=== PATIENT | female | born 1960 | race Two or more races ===

== ENCOUNTER 2017-07-22 01:22 | Observation (INO) | payer OTHER ==
[2017-07-22] MEDS ORDERED: Nitroglycerin 2% OINT* 1 GM PAK TOPICAL ONE (01:46)
[2017-07-22 02:09] LABS: Hematocrit 34 % (35-47); Hemoglobin 10.9 g/dl (12.0-16.0); Mean Corpuscular HGB Conc 33 g/dl (31-36); Mean Corpuscular Hemoglobin 32 pg (27-31); Mean Corpuscular Volume 98 fL (80-97); Mean Platelet Volume 7 um3 (7.4-10.4); Red Blood Count 3.42 10^6/ul (4.0-5.4); Red Cell Distribution Width 13 % (10.5-15); White Blood Count 6.8 10^3/ul (3.5-10.8)
[2017-07-22] MEDS ORDERED: Ticagrelor* 90 MG TAB PO ONE (02:20)
[2017-07-22] MEDS ORDERED: Heparin for STEMI(*) 5,000 UNITS/ML 1 ML VIAL IV ONE (02:20)
[2017-07-22] MEDS ORDERED: Aspirin TAB* 325 MG PO ONE (02:21)
[2017-07-22 02:28] LABS: Albumin 3.8 g/dL (3.2-5.2); BUN/Creatinine Ratio 13.7 (8-20); Calcium 8.6 mg/dL (8.6-10.3); EGFR African American 16.5 (>60); EGFR Non-African American 12.8 (>60); Potassium 4.6 mmol/L (3.5-5.0); Total Bilirubin 0.5 mg/dL (0.2-1.0); Total Protein 6.8 g/dL (6.4-8.9)
[2017-07-22 02:30] LABS: Troponin I 0.03 ng/mL (<0.04)
[2017-07-22] MEDS ORDERED: Albuterol 2.5 MG/3 ML NEB.SOL* (0.083%) INH PRN (02:40)
[2017-07-22] MEDS ORDERED: Melatonin (NF) 3 MG TAB PO PRN (02:40)
[2017-07-22] MEDS ORDERED: Ondansetron INJ* 2 MG/ML VIAL IV PRN (02:41)
[2017-07-22] MEDS ORDERED: Morphine INJ* 2 MG/ML 1 ML SYRINGE (TWO MG - NEW SYRINGE VERSION) IV PRN (02:41)
[2017-07-22] MEDS ORDERED: Metoprolol Tartrate TAB* 25 MG PO ONE (02:41)
[2017-07-22] MEDS ORDERED: NS 0.9% 1000 ML* 1,000 ML IV SCH (02:45)
--- NOTE | 2017-07-22 02:49 | HP ---
H&P (Free Text) History and Physical: PCP: patient is uncertain Date/Time: 07/22/2017 0240 CC: chest pain HPI: Mrs Willson is a 57YO obese Belgian speaking female HX CKD & HTN presents with onset at 1800 of mild non-radiating, non-exertional substernal chest pressure associated with SOB, but no sweating, nausea, palpitations, or light- headedness. The pain was continuous, but increased to 5/10 around 2230 prompting a call to EMS who gave 324mg aspirin which helped. At this time, she is symptom free. She reports similar symptoms in the past, but not recently. PMedHx HTN CKD HLD Ambulatory Orders Carvedilol TAB* [Coreg TAB*] 9.375 mg PO BID 07/22/17 Sodium Citrate & Citric Acid [Sodium Citrate/Citric Aci 500-334 mg/5Ml] 15 ml PO TID 07/22/17 Allergies No Known Allergies Allergy (Verified 07/22/17 01:33) PSurgHx denies SocHx: 1/4PPD cigarettes, 1-2 alcoholic drinks weekly, no recreational drugs; lives with her ; full code status FamHx: Mother: alive at 80 w/ HTN; Father: passed at 60 of CAD/TX ROS: as above, otherwise reviewed and all were negative vitals: Vital Signs Temp 36.2 C 07/22/17 01:29 Pulse 73 07/22/17 02:00 Resp 16 07/22/17 02:00 BP 183/93 07/22/17 01:29 Pulse Ox 99 07/22/17 02:00 Intake & Output 07/21/17 07/21/17 07/22/17 11:59 23:59 11:59 Weight 83.007 kg Constitutional: NAD, normally developed, obese female HEENM: atraumatic; sclera/conjunctiva: anicteric/clear; hearing: clinically intact; oropharynx: clear, mucosa moist Neck: soft tissue: non-tender; thyroid: normal Pulmonary: clear to auscultation bilaterally, good aeration, no accessory muscle use CV: RR/RR, normal S1S2, no carotid bruit, no jugular venous distention, 2+ B DP/ PT, no edema Abdominal: soft, non-distended, non-tender, no rebound/guarding/rigidity, normoactive bowel sounds, no hepatosplenomegaly or masses, no costovertebral angle tenderness Musculoskeletal: general: grossly intact, no palpable tenderness Integumental: normal appearance and texture Psychiatric orientation: AA&O to PPS affect: calm mood: cooperative eye contact: good content: reliable responses: timely insight: good to fair Testing: Lab Results 07/22/17 07/22/17 07/22/17 Range/Units 01:56 01:56 01:56 WBC 6.8 (3.5-10.8) 10^3/ul RBC 3.42 L (4.0-5.4) 10^6/ul Hgb 10.9 L (12.0-16.0) g/dl Hct 34 L (35-47) % MCV 98 H (80-97) fL MCH 32 H (27-31) pg MCHC 33 (31-36) g/dl RDW 13 (10.5-15) % Plt Count 255 (150-450) 10^3/ul MPV 7 L (7.4-10.4) um3 Neut % (Auto) 53.8 (38-83) % Lymph % (Auto) 37.0 (25-47) % [place] % (Auto) 7.7 (1-9) % Eos % (Auto) 1.4 (0-6) % Baso % (Auto) 0.1 (0-2) % Absolute Neuts (auto) 3.7 (1.5-7.7) 10^3/ul Absolute Lymphs (auto) 2.5 (1.0-4.8) 10^3/ul Absolute Monos (auto) 0.5 (0-0.8) 10^3/ul Absolute Eos (auto) 0.1 (0-0.6) 10^3/ul Absolute Basos (auto) 0 (0-0.2) 10^3/ul Absolute Nucleated RBC 0 10^3/ul Nucleated RBC % 0 INR (Anticoag Therapy) 0.86 (0.77-1.02) APTT 33.5 (26.0-36.3) seconds Sodium (133-145) mmol/L Potassium (3.5-5.0) mmol/L Chloride (101-111) mmol/L Carbon Dioxide (22-32) mmol/L Anion Gap (2-11) mmol/L BUN (6-24) mg/dL Creatinine (0.51-0.95) mg/dL Est GFR ( Amer) (>60) Est GFR (Non-Af Amer) (>60) BUN/Creatinine Ratio (8-20) Glucose (70-100) mg/dL Lactic Acid (0.5-2.0) mmol/L Calcium (8.6-10.3) mg/dL Total Bilirubin (0.2-1.0) mg/dL AST (13-39) U/L ALT (7-52) U/L Alkaline Phosphatase (34-104) U/L Troponin I (<0.04) ng/mL B-Natriuretic Peptide 192 H ( - 100) pg/mL Total Protein (6.4-8.9) g/dL Albumin (3.2-5.2) g/dL Globulin (2-4) g/dL Albumin/Globulin Ratio (1-3) 07/22/17 07/22/17 Range/Units 01:56 01:56 WBC (3.5-10.8) 10^3/ul RBC (4.0-5.4) 10^6/ul Hgb (12.0-16.0) g/dl Hct (35-47) % MCV (80-97) fL MCH (27-31) pg MCHC (31-36) g/dl RDW (10.5-15) % Plt Count (150-450) 10^3/ul MPV (7.4-10.4) um3 Neut % (Auto) (38-83) % Lymph % (Auto) (25-47) % [place] % (Auto) (1-9) % Eos % (Auto) (0-6) % Baso % (Auto) (0-2) % Absolute Neuts (auto) (1.5-7.7) 10^3/ul Absolute Lymphs (auto) (1.0-4.8) 10^3/ul Absolute Monos (auto) (0-0.8) 10^3/ul Absolute Eos (auto) (0-0.6) 10^3/ul Absolute Basos (auto) (0-0.2) 10^3/ul Absolute Nucleated RBC 10^3/ul Nucleated RBC % INR (Anticoag Therapy) (0.77-1.02) APTT (26.0-36.3) seconds Sodium 133 (133-145) mmol/L Potassium 4.6 (3.5-5.0) mmol/L Chloride 112 H (101-111) mmol/L Carbon Dioxide 17 L (22-32) mmol/L Anion Gap 4 (2-11) mmol/L BUN 50 H (6-24) mg/dL Creatinine 3.65 H (0.51-0.95) mg/dL Est GFR ( Amer) 16.5 (>60) Est GFR (Non-Af Amer) 12.8 (>60) BUN/Creatinine Ratio 13.7 (8-20) Glucose 95 (70-100) mg/dL Lactic Acid 0.3 L (0.5-2.0) mmol/L Calcium 8.6 (8.6-10.3) mg/dL Total Bilirubin 0.50 (0.2-1.0) mg/dL AST 139 H (13-39) U/L ALT 67 H (7-52) U/L Alkaline Phosphatase 96 (34-104) U/L Troponin I 0.03 (<0.04) ng/mL B-Natriuretic Peptide ( - 100) pg/mL Total Protein 6.8 (6.4-8.9) g/dL Albumin 3.8 (3.2-5.2) g/dL Globulin 3.0 (2-4) g/dL Albumin/Globulin Ratio 1.3 (1-3) ECG, personally reviewed: NSR rate 69, T-wave inversion lead III; no comparison CXR, personally reviewed: No acute process. Impression: 57F presenting with chest pain for r/o ACS DIAGNOSIS & PLAN Primary chest pain r/o ACS : aspirin 324mg given by EMS : metoprolol 12.5mg x1 in ED : continue carvedilol : telemetry : trend troponin : exercise stress test in AM : supplemental oxygen : supportive care Secondary HTN : continue carvedilol CKD : continue sodium citrate & citric acid HLD : heart healthy diet when taking PO Admission Rational: observation for r/o ACS DVTp: heparin SQ Code Status: full HCP:
--- NOTE | 2017-07-22 03:17 | ED ---
Azael Bryant Tiffany, scribfabrizio for Kal Downey on 07/22/17 at 0203 . HPI Chest Pain - HPI Summary HPI Summary: This patient is a 57 year old F BIBA to [facility] accompanied by family with a chief complaint of chest pain since 2229 this evening. A advertising material distributor delivered the HPI. The patient rates the pain 8/10 in severity. Symptoms aggravated by nothing. Symptoms alleviated by nothing. Patient reports shortness of breath. Patient denies nausea, vomiting, leg swelling, cough, and fever. The patient has a history of enlarged heart. She has an external heart monitor. - History of Current Complaint Chief Complaint: EDChestPainROMI Time Seen by Provider: 07/22/17 01:29 Hx Obtained From: Rafter Cutting Machine Operator Onset/Duration: Started Hours Ago - 2 hours, Still Present Timing: Constant Current Severity: Severe Pain Intensity: 8 Pain Scale Used: 0-10 Numeric Aggravating Factor(s): Nothing Alleviating Factor(s): Nothing Associated Signs and Symptoms: Positive: Other: - Allergy/Home Medications Allergies/Adverse Reactions: Allergies Allergy/AdvReac Type Severity Reaction Status Date / Time No Known Allergies Allergy Verified 07/22/17 01:33 Home Medications: Home Medications Carvedilol TAB* [Coreg TAB*] 9.375 mg PO BID 07/22/17 [History Confirmed ] Sodium Citrate & Citric Acid [Sodium Citrate/Citric Aci 500-334 mg/5Ml] 15 ml PO TID 07/22/17 [History Confirmed 07/22/17] PMH/Surg Hx/FS Hx/Imm Hx Previously Healthy: No Cardiovascular History: Reports: Hx Cardiomegaly History: Reports: Other Problems/Disorders - Hx of kidney diseases Infectious Disease History: No Infectious Disease History: Denies: Traveled Outside the [place] in Last 30 Days - Family History Known Family History: Positive: Cardiac Disease, Hypertension - Social History Alcohol Use: Weekly Hx Substance Use: No Substance Use Type: Reports: None Hx Tobacco Use: Yes Smoking Status (MU): Light Every Day Tobacco Smoker Review of Systems Negative: Fever Positive: Chest Pain Positive: Shortness Of Breath. Negative: Cough Negative: Vomiting, Nausea Negative: Edema All Other Systems Reviewed And Are Negative: Yes Physical Exam - Summary Physical Exam Summary: Appearance: Well appearing, no pain distress Skin: warm, dry, reflects adequate perfusion Head/face: normal Eyes: EOMI, JEFF ENT: normal Neck: supple, non-tender Respiratory: CTA, breath sounds present Cardiovascular: RRR, pulses symmetrical Chest: mild tenderness in chest Abdomen: non-tender, soft Bowel: present Musculoskeletal: normal, strength/ROM intact Neuro: normal, sensory motor intact, A&Ox3 Vital Signs On Initial Exam: Initial Vitals Temp Pulse Resp BP Pulse Ox 97.1 F 68 18 183/93 100 07/22/17 01:29 07/22/17 01:29 07/22/17 01:29 07/22/17 01:29 07/22/17 01:29 - [place] Coma Scale Coma Scale Total: 15 Diagnostics - Vital Signs Vital Signs Temp Pulse Resp BP Pulse Ox 07/22/17 01:29 97.1 F 68 18 183/93 100 - Laboratory Lab Results: Lab Results 07/22/17 07/22/17 07/22/17 Range/Units 01:56 01:56 01:56 WBC 6.8 (3.5-10.8) 10^3/ul RBC 3.42 L (4.0-5.4) 10^6/ul Hgb 10.9 L (12.0-16.0) g/dl Hct 34 L (35-47) % MCV 98 H (80-97) fL MCH 32 H (27-31) pg MCHC 33 (31-36) g/dl RDW 13 (10.5-15) % Plt Count 255 (150-450) 10^3/ul MPV 7 L (7.4-10.4) um3 Neut % (Auto) 53.8 (38-83) % Lymph % (Auto) 37.0 (25-47) % [place] % (Auto) 7.7 (1-9) % Eos % (Auto) 1.4 (0-6) % Baso % (Auto) 0.1 (0-2) % Absolute Neuts (auto) 3.7 (1.5-7.7) 10^3/ul Absolute Lymphs (auto) 2.5 (1.0-4.8) 10^3/ul Absolute Monos (auto) 0.5 (0-0.8) 10^3/ul Absolute Eos (auto) 0.1 (0-0.6) 10^3/ul Absolute Basos (auto) 0 (0-0.2) 10^3/ul Absolute Nucleated RBC 0 10^3/ul Nucleated RBC % 0 INR (Anticoag Therapy) 0.86 (0.77-1.02) APTT 33.5 (26.0-36.3) seconds Sodium (133-145) mmol/L Potassium (3.5-5.0) mmol/L Chloride (101-111) mmol/L Carbon Dioxide (22-32) mmol/L Anion Gap (2-11) mmol/L BUN (6-24) mg/dL Creatinine (0.51-0.95) mg/dL Est GFR ( Amer) (>60) Est GFR (Non-Af Amer) (>60) BUN/Creatinine Ratio (8-20) Glucose (70-100) mg/dL Lactic Acid (0.5-2.0) mmol/L Calcium (8.6-10.3) mg/dL Total Bilirubin (0.2-1.0) mg/dL AST (13-39) U/L ALT (7-52) U/L Alkaline Phosphatase (34-104) U/L Troponin I (<0.04) ng/mL B-Natriuretic Peptide 192 H ( - 100) pg/mL Total Protein (6.4-8.9) g/dL Albumin (3.2-5.2) g/dL Globulin (2-4) g/dL Albumin/Globulin Ratio (1-3) 07/22/17 07/22/17 Range/Units 01:56 01:56 WBC (3.5-10.8) 10^3/ul RBC (4.0-5.4) 10^6/ul Hgb (12.0-16.0) g/dl Hct (35-47) % MCV (80-97) fL MCH (27-31) pg MCHC (31-36) g/dl RDW (10.5-15) % Plt Count (150-450) 10^3/ul MPV (7.4-10.4) um3 Neut % (Auto) (38-83) % Lymph % (Auto) (25-47) % [place] % (Auto) (1-9) % Eos % (Auto) (0-6) % Baso % (Auto) (0-2) % Absolute Neuts (auto) (1.5-7.7) 10^3/ul Absolute Lymphs (auto) (1.0-4.8) 10^3/ul Absolute Monos (auto) (0-0.8) 10^3/ul Absolute Eos (auto) (0-0.6) 10^3/ul Absolute Basos (auto) (0-0.2) 10^3/ul Absolute Nucleated RBC 10^3/ul Nucleated RBC % INR (Anticoag Therapy) (0.77-1.02) APTT (26.0-36.3) seconds Sodium 133 (133-145) mmol/L Potassium 4.6 (3.5-5.0) mmol/L Chloride 112 H (101-111) mmol/L Carbon Dioxide 17 L (22-32) mmol/L Anion Gap 4 (2-11) mmol/L BUN 50 H (6-24) mg/dL Creatinine 3.65 H (0.51-0.95) mg/dL Est GFR ( Amer) 16.5 (>60) Est GFR (Non-Af Amer) 12.8 (>60) BUN/Creatinine Ratio 13.7 (8-20) Glucose 95 (70-100) mg/dL Lactic Acid 0.3 L (0.5-2.0) mmol/L Calcium 8.6 (8.6-10.3) mg/dL Total Bilirubin 0.50 (0.2-1.0) mg/dL AST 139 H (13-39) U/L ALT 67 H (7-52) U/L Alkaline Phosphatase 96 (34-104) U/L Troponin I 0.03 (<0.04) ng/mL B-Natriuretic Peptide ( - 100) pg/mL Total Protein 6.8 (6.4-8.9) g/dL Albumin 3.8 (3.2-5.2) g/dL Globulin 3.0 (2-4) g/dL Albumin/Globulin Ratio 1.3 (1-3) Result Diagrams: 07/22/17 01:56 07/22/17 01:56 Lab Statement: Any lab studies that have been ordered have been reviewed, and results considered in the medical decision making process. - Radiology CXR Radiology Interpretation Completed By: ED Physician - CXR is normal. - EKG 01:25 Cardiac Rate: NL EKG Rhythm: Sinus Rhythm - 69 BPM EKG Interpretation: Nonspecific T wave changes Chest Pain Course/Dx - Course Course Of Treatment: This patient is a 57 year old F BIBA to [facility] accompanied by family with a chief complaint of chest pain since 0 this evening. An EKG reveals nonspecific T wave changes. CXR is, per ED physician, normal. Bloodwork obtained. In the ED course the patient was given Aspirin, Heparin, Nitroglycerin and Brilinta. I consulted Dr. Moncada (hospitalist) on patient care and he agreed to admit the patient. Patient will be admitted. The patient is agreeable with this plan. - Chest Pain Differential Diagnosis/HQI/PQRI: Acute AR, ACS, Angina, Other: - esrd - Diagnoses Provider Diagnoses: Ruled out for myocardial infarction, Chronic renal failure, Chest pain - Provider Notifications Discussed Care Of Patient With: Jomar Moncada Time Discussed With Above Provider: 02:34 Instructed by Provider To: Other - Dr. Moncada (hospitalist) agreed to admit the patient. Discharge - Discharge Plan Condition: Fair Disposition: ADMITTED TO [facility] Referrals: Non Staff,Doctor [Primary Care Provider] - The documentation as recorded by the Azael alvarez Tiffany accurately reflects the service I personally performed and the decisions made by , Kal Downey.
[2017-07-22 05:44] LABS: Hematocrit 33 % (35-47); Hemoglobin 10.8 g/dl (12.0-16.0); Mean Corpuscular HGB Conc 33 g/dl (31-36); Mean Corpuscular Hemoglobin 32 pg (27-31); Mean Corpuscular Volume 97 fL (80-97); Mean Platelet Volume 8 um3 (7.4-10.4); Red Blood Count 3.39 10^6/ul (4.0-5.4); Red Cell Distribution Width 13 % (10.5-15); White Blood Count 5.9 10^3/ul (3.5-10.8)
[2017-07-22] MEDS ORDERED: Omeprazole CAP* 20 MG PO SCH (06:00)
[2017-07-22 06:22] LABS: BUN/Creatinine Ratio 13.2 (8-20); Calcium 8.5 mg/dL (8.6-10.3); EGFR African American 16.2 (>60); EGFR Non-African American 12.6 (>60); Potassium 4.7 mmol/L (3.5-5.0)
[2017-07-22 06:23] LABS: Troponin I 0.02 ng/mL (<0.04)
[2017-07-22 07:39] VITALS: BP 164/61
[2017-07-22 07:56] LABS: Urine Bacteria 1+ (Absent); Urine Bilirubin Negative (Negative); Urine Glucose Negative (Negative); Urine Nitrite Negative (Negative)
--- NOTE | 2017-07-22 07:58 | RAD ---
HISTORY: Chest pain COMPARISONS: April 14, 2017 VIEWS: 1: frontal portable view of the chest at 1:58 AM FINDINGS: LINES AND TUBES: None. CARDIOMEDIASTINAL SILHOUETTE: The cardiomediastinal silhouette is normal for portable technique. PLEURA: The costophrenic angles are sharp. No pleural abnormalities are noted. LUNG PARENCHYMA: The lungs are clear. ABDOMEN: The upper abdomen is clear. There is no subphrenic gas. BONES AND SOFT TISSUES: No bone or soft tissue abnormalities are noted. IMPRESSION: NO ACTIVE CARDIOPULMONARY DISEASE.
[2017-07-22] MEDS ORDERED: Carvedilol TAB* 6.25 MG PO SCH (09:00)
[2017-07-22] MEDS ORDERED: Docusate CAP* 100 MG PO SCH (09:00)
[2017-07-22] MEDS ORDERED: Sodium Citrate/Citric Acid* 15 ML UDC PO SCH (09:00)
[2017-07-22 09:11] LABS: EGFR African American 15.6 (>60); EGFR Non-African American 12.1 (>60)
[2017-07-22 09:12] LABS: Troponin I 0.02 ng/mL (<0.04)
--- NOTE | 2017-07-23 04:00 | DS ---
CC: Dr. Dowling * DISCHARGE SUMMARY: DATE OF ADMISSION: 07/22/17 DATE OF DISCHARGE: 07/22/17 PRIMARY CARE PROVIDER: Dr. Dowling. DISCHARGING PROVIDER: THOR Deluca SUPERVISING PHYSICIAN: Dr. Bridger Palma * (DICTATED BY THOR DELUCA) PRIMARY DISCHARGE DIAGNOSIS: Chest pain with nondiagnostic stress test. SECONDARY DISCHARGE DIAGNOSES: 1. Stage 4 chronic kidney disease - stable. 2. Hypertension. 3. Hyperlipidemia. DISCHARGE MEDICATIONS: 1. Aspirin 81 mg p.o. daily. 2. Atorvastatin 40 mg p.o. daily. 3. Carvedilol 3.975 mg p.o. b.i.d. 4. Dulera 2 puffs inhaled twice daily. 5. Sodium citrate 15 mL p.o. 3 times daily. Medication changes: Start aspirin HOSPITAL IMAGIN. Chest x-ray shows no acute process. 2. EKG shows sinus rhythm without acute ischemic changes. 3. Preliminary treadmill stress test is nondiagnostic, reaching only 80% of predicted heart rate. Symptoms are nonreproducible and no ST segment changes. The patient completed 5 minutes of the [place] treadmill protocol. HOSPITAL COURSE: This is a 57-year-old [place] speaking female with chronic kidney disease, hypertension, hyperlipidemia, and a significant smoking history who presented to the emergency department with complaints of chest pain. The patient reported associated shortness of breath but no cough, radiation of the pain, or diaphoresis. The patient reported that her pain had been constant for nearly two days but seemed to get worse yesterday which prompted her evaluation in the emergency department and she believed when she was symptomatic that she did have some tenderness to palpation over the associated chest wall. Initial labs in the emergency department show a relatively normal CBC. Comprehensive metabolic panel shows her baseline chronic kidney disease, otherwise unremarkable. Initial troponin negative. EKG showed no acute ischemic changes. The patient was subsequently admitted to the hospital for a period of observation with continuous telemetry monitoring and serial troponin. The patient reports that her chest pain resolved spontaneously. She underwent exercise stress test without cardiac imaging and her pain was nonreproducible with exercise or with palpation. The patient reached only 80% of predicted maximal heart rate after 5 minutes of the [place] protocol. No ST segment changes , nondiagnostic as she did not reach 85% of predicted. The patient was otherwise asymptomatic and eager to leave the hospital and agreeable to further outpatient stress testing. DISPOSITION AND FOLLOWUP PLAN: The patient is being discharged to home. Recommend starting daily low-dose aspirin therapy. She will be scheduled for an outpatient exercise nuclear stress test and will be contacted by [facility] for scheduling following prior authorization. A followup has been made on her behalf with her primary care provider for next week. The patient received instructions to return to the emergency department with recurrent chest pain. THOR DELUCA [id number]/[facility] #: [id number] KANDIS
[2017-07-23] MEDS ORDERED: Heparin VIAL(*) 5000 UNITS/ML VIAL (FIVE THOUSAND) SUBCUT SCH (06:00)
[2017-07-23] MEDS ORDERED: Aspirin EC Low Dose* 81 MG TAB.EC PO SCH (09:00)
== END 2017-07-22 13:30 | disposition home or self-care (01) ==
LOC: EDBD → ED 01:22 → MEDTELE 02:37 → MERGE 02:37
PROVIDERS: ADMIT Hospitalist; ATTEND Internal Medicine
DX: R07.9 Chest pain, unspecified (principal); I12.9 Hypertensive chronic kidney disease with stage 1 through stage 4 chronic kidney disease, or unspecified chronic kidney disease; N18.4 Chronic kidney disease, stage 4 (severe); E78.5 Hyperlipidemia, unspecified; F17.210 Nicotine dependence, cigarettes, uncomplicated; I51.7 Cardiomegaly; R06.02 Shortness of breath
CPT/HCPCS: 36415; 71010; 80048; 80053; 81003; 81015; 82565; 83605; 83880; 84484; 84520; 85025; 85027; 85610; 85730; 87077; 87086; 87186; 93005; 93017; 96374; 96375; 99284; 99406; A9270-GY; G0378

== ENCOUNTER → 2018-11-27 11:33 | Day surgery (SDC) | payer OTHER ==
--- NOTE | 2018-11-26 20:34 | HP ---
HISTORY AND PHYSICAL: DATE OF ADMISSION: 11/27/18. CHIEF COMPLAINT: End-stage renal disease. HISTORY OF PRESENT ILLNESS: The patient is a 58-year-old female with history of smoking and hypertension and high cholesterol, who has developed end-stage renal disease to the point that she will require dialysis. At the present time , she is borderline, but she is scheduled to start dialysis in 2 or 3 months. For this reason, the patient has been admitted for the creation of an arteriovenous fistula. PAST MEDICAL HISTORY: Remarkable for: 1. Hypertension. 2. High cholesterol. 3. Intermittent claudication. 4. Asthma. 5.Cardiomyopathy CURRENT MEDICATIONS: Include: 1. Ventolin 2 puffs every 8 hours as needed. 2. Carvedilol 6.25 mg one tablet p.o. daily. 3. Atorvastatin 40 mg p.o. daily. ALLERGIES: The patient has no known allergies. FAMILY HISTORY: Parents with hypertension. REVIEW OF SYSTEMS: Contributory for intermittent claudication. Denies any history of angina or myocardial infarction but has cardiomyopathy. Denies any history of stroke. Renal: The patient has end-stage renal disease. Peripheral Vascular: The patient has peripheral vascular disease, specifically intermittent claudication . PHYSICAL EXAMINATION GENERAL: The patient is alert and oriented, in no acute distress. VITAL SIGNS: Blood pressure is 172/82, respirations of 18, pulse of 72. HEAD AND NECK: Reveals no neck nodes or masses. No carotid bruits. LUNGS: Clear to auscultation bilaterally. HEART: Regular without murmurs. EXTREMITIES: Upper Extremities: The patient has excellent palpable pulses at the axillary brachial and radials bilaterally. The veins appeared to be small in the superficial area, but she does have adequate size right basilic vein that is being considered for two-stage basilic transposition. Lower Extremities: There is no edema, no varicosities. The pulses, the femoral and popliteal are palpable. The dorsalis pedis and posterior tibials are not palpable. Her most recent YING that showed the patient is within claudication range. There is no gangrene or any ischemic changes in the lower extremities. DIAGNOSTIC IMPRESSION: End-stage renal disease. PLAN: The plan is for admission to create arteriovenous fistula in an attempt to perform a two-stage right basilic vein transposition in this case starting with stage I AV fistula between the basilic and the brachial artery as the first stage and at a subsequent date, basilic vein transposition. The possibility of converting this into a [place]-Cristofer graft was also discussed with the patient and it is a possibility. The patient understands the potential complications including but not exclusive of others such as recurrence, phlebitis, occlusion, bleeding, hematoma. The patient understands, agrees, and wishes to proceed with the surgery. [id number]/[facility] #: [id number] KANDIS
[~2018-11-27 11:33] MED LIST: Bupivacaine 0.25% EPI 200,000* 30 ML SDV ONE; Carvedilol TAB* 6.25 MG PO ONE; Dexamethasone IV* 4 MG/ML 1 ML (4 MG) ONE; EPHEDrine (Pressors)* 50 MG/ML VIAL ONE; Glycopyrrolate IV* 0.2 MG/ML 1 ML VIAL ONE; Heparin 2 UNITS/ML IVPREMIX* 1,000 ML IV ONE; Heparin DIALYSIS ONLY(*) 1,000 UNITS/ML VIAL ONE; KETAMINE HCL* 50 MG/ML 10 ML VIAL ONE; Levalbuterol 0.63MG/3ML NEB* UNIT OF USE INH ONE; Levalbuterol 0.63MG/3ML NEB* UNIT OF USE INH PRN; Lidocaine 1% INJ* 10 MG/ML 30 ML SDV ONE; Lidocaine 2% PF * 5 ML VIAL ONE; Midazolam* 1 MG/ML 10 ML VIAL (10 MG) ONE; Naloxone* 0.4 MG/ML 1 ML VIAL IV PRN; Ondansetron INJ* 2 MG/ML VIAL IV PRN; Ondansetron INJ* 2 MG/ML VIAL ONE; Propofol* 10 MG/ML 20 ML BTL ONE; ceFAZolin 2 GM PREMIX in ORs 2 GM/50 ML BAG IVPB ONE; fentaNYL* 50 MCG/ML 2 ML VIAL (100 MCG VIAL) IV PRN; fentaNYL* 50 MCG/ML 2 ML VIAL (100 MCG VIAL) ONE
[2018-11-27 13:29] LABS: Hematocrit 29 % (33-41); Hemoglobin 9.5 g/dL (12.0-16.0); Mean Corpuscular HGB Conc 32 g/dL (31-36); Mean Corpuscular Hemoglobin 31 pg (27-31); Mean Corpuscular Volume 96 fL (80-97); Mean Platelet Volume 7.5 fL (7.4-10.4); Platelet Count 233 10^3/uL (150-450); Red Blood Count 3.08 10^6 /uL (3.70-4.87); Red Cell Distribution Width 15 % (10.5-15); White Blood Count 4.4 10^3/uL (3.5-10.8)
[2018-11-27 13:35] LABS: BUN/Creatinine Ratio 11.5 (8-20); Calcium 7.9 mg/dL (8.6-10.3); EGFR African American 11.5 (>60); EGFR Non-African American 9.5 (>60)
[2018-11-27 13:41] LABS: Potassium 5.4 mmol/L (3.5-5.0)
[2018-11-27 17:19] VITALS: BP 120/68
--- NOTE | 2018-11-27 23:40 | OP ---
DATE OF OPERATION: 11/27/18 [facility] DATE OF : 60 SURGEON: Juan Crane MD CENTRAL OFFICE SUPERVISOR: Delfina Ellis NP ANESTHESIA: Local plus MAC. PRE-OP DIAGNOSIS: End-stage renal disease. POST-OP DIAGNOSIS: End-stage renal disease. OPERATIVE PROCEDURE: Brachiocephalic arteriovenous fistula (stage I of basilic vein transposition). ESTIMATED BLOOD LOSS: Less than 20 cc. INDICATIONS: The patient is a 58-year-old female with end-stage renal disease that will require hemodialysis. The patient's only adequate vein was the right basilic vein and for this reason, she was brought in for a brachiobasilic vein arteriovenous fistula as stage I for the basilic vein transposition. DESCRIPTION OF PROCEDURE: The patient was taken to the procedure room. After proper identification of the patient and site of surgery and proper time out, she was placed in a supine position, she was prepped and draped in the usual sterile fashion. Under sedation, lidocaine 1% was used to infiltrate on the medial aspect of the right elbow. An up and down incision was then performed in this area. The incision was carried down through the skin and subcutaneous tissue. The basilic vein was then isolated on the medial aspect of the arm, this was encircled in vessel loops. We then proceeded to open the fascia and expose the brachial artery. Care was taken to avoid the nerves and we preserved the brachial vein as well. The brachial artery was encircled in vessel loops proximally and distally. Small branches were clipped with micro clips and after this was completed, the patient received 3000 units of heparin. We then proceeded after 5 minutes to crossclamp the brachial artery distally then proximally. The basilic vein was disconnect at the level of the elbow, double clipped it distally and divided. It was then spatulated proximally. Yasargil appliers were placed. After the measurement of the anastomosis to be at least 1.5 cm, an arteriotomy was performed with an 11 blade, this was extended with Bridges scissors. We then proceeded to perform an end- to-side anastomosis using 7-0 Prolene in a parachute technique. After this was done, the area was checked for hemostasis. We released the Yasargil clamp in the basilic vein and opened the distal end of the brachial artery and then the proximal end. Excellent flow was noted into the basilic vein. There was a side branch more distal to the basilic vein that appeared to be stealing flow, this was then clipped and this increased the flow into basilic vein. At this point, we checked the area for hemostasis and no bleeding was noted. We then proceeded to close the incisions, the subcutaneous tissue with 4-0 Vicryl sutures, and the skin with a subcuticular 5-0 Monocryl and Steri-Strips. At the end of the procedure, the patient has excellent capillary refill of the hand, excellent palpable pulses at the radial and ulnar. The patient was then taken in good condition to recovery room. [id number]/[facility] #: [id number] KANDIS
== END | disposition home or self-care (01) ==
LOC: OR 11:33
PROVIDERS: ATTEND Surgery
DX: N18.6 End stage renal disease (principal); I12.9 Hypertensive chronic kidney disease with stage 1 through stage 4 chronic kidney disease, or unspecified chronic kidney disease; E78.00 Pure hypercholesterolemia, unspecified; Z99.2 Dependence on renal dialysis; J44.9 Chronic obstructive pulmonary disease, unspecified; I42.9 Cardiomyopathy, unspecified; D64.9 Anemia, unspecified; E78.5 Hyperlipidemia, unspecified
CPT/HCPCS: 36415; 80048; 85027; A9270-GY; J0690; J1100; J1644; J2250; J2405; J2704; J3010

== ENCOUNTER → 2019-02-19 11:23 | Day surgery (SDC) | payer OTHER ==
--- NOTE | 2019-02-18 10:17 | HP ---
HISTORY AND PHYSICAL: DATE OF ADMISSION: 02/19/19 - [facility] CHIEF COMPLAINT: End-stage renal disease. HISTORY OF PRESENT ILLNESS: The patient is a 58-year-old female who has end- stage renal disease stage IV, about to start hemodialysis. She was referred earlier for placement of/creation of arteriovenous fistula in preparation for hemodialysis. It was felt that the best choice was to perform a 2-stage right basilic vein transposition. The patient underwent 10 weeks ago creation of right brachiobasilic fistula. However, the basilic vein is too deep for cannulation. She is being brought in for a right basilic vein transposition. PAST MEDICAL HISTORY: The patient's past medical history is remarkable for kidney disease, hypertension, myocardial infarction, congestive heart failure. CURRENT MEDICATIONS: Include: 1. Aspirin 81 mg p.o. daily. 2. Atorvastatin 40 mg p.o. daily. 3. Carvedilol 12.5 mg p.o. daily. 4. Sodium bicarb 650 mg p.o. t.i.d. 5. Ventolin inhaler 2 puffs as needed. ALLERGIES: The patient is allergic to MERLYN INHIBITORS. FAMILY HISTORY: Father had heart disease, and mother and father had hypertension. SOCIAL HISTORY: The patient is a smoker. She smokes about 3 cigarettes a day. Does not use alcohol or recreational drugs. REVIEW OF SYSTEMS: The patient's review of systems is remarkable for occasional palpitations. She has leg pains when she walks. However, she does not have any critical peripheral vascular disease. She has felt short of breath when she had congestive heart failure. ENT: She has history of nose bleeds. PHYSICAL EXAMINATION VITAL SIGNS: The patient's height is 64 inches, weight 170 pounds, blood pressure 130/70, pulse 64, respirations 18. HEENT AND NECK: Reveals no neck nodes or masses. LUNGS: Clear to auscultation bilaterally. HEART: Regular without murmurs. ABDOMEN: Unremarkable. EXTREMITIES: On the right side, there is a patent brachiobasilic fistula with a thrill. The patient has excellent palpable pulses at the radial bilaterally, brachials and axillary. Lower extremity unremarkable. IMPRESSION: Diagnostic impression is that of end-stage renal disease, likely to require hemodialysis within the next 3 months. The patient is being admitted for a right basilic vein transposition for hemodialysis. The patient understands the potential complications including but not exclusive of others such as occlusion, thrombosis, bleeding, infection, etc. The patient understands, agrees and wishes to proceed. [id number]/[facility] #: [id number] MTDD
[~2019-02-19 11:23] MED LIST changes: +Buffered Lidocaine 1% SYRIN* 1 ML/SYRINGE INTRADERM ONE; -Bupivacaine 0.25% EPI 200,000* 30 ML SDV ONE; +Bupivacaine 0.25% W/EPI* 10 ML SDV ONE; -Carvedilol TAB* 6.25 MG PO ONE; -Dexamethasone IV* 4 MG/ML 1 ML (4 MG) ONE; +Dexamethasone TAB* 4 MG ONE; +Dexamethasone TAB* 4 MG PO ONE; +DiMENhydriNATE IV* 50 MG/ML VIAL IV PUSH PRN; -EPHEDrine (Pressors)* 50 MG/ML VIAL ONE; +Famotidine IV* 10 MG/ML 2 ML (20 mg) IV ONE; +Famotidine IV* 10 MG/ML 2 ML (20 mg) ONE; -Glycopyrrolate IV* 0.2 MG/ML 1 ML VIAL ONE; -Heparin DIALYSIS ONLY(*) 1,000 UNITS/ML VIAL ONE; +Heparin VIAL(*) 5000 UNITS/ML VIAL (FIVE THOUSAND) ONE; -Levalbuterol 0.63MG/3ML NEB* UNIT OF USE INH ONE; -Levalbuterol 0.63MG/3ML NEB* UNIT OF USE INH PRN; -Midazolam* 1 MG/ML 10 ML VIAL (10 MG) ONE; +Midazolam* 1 MG/ML 5 ML VIAL (5 MG) ONE; +Morphine 4 MG/ML VIAL (1 ml) 4 MG/ML VIAL IV PRN; +NS 0.45% 1000 ML BAG* 1,000 ML IV SCH; +Norepinephrine VIAL* 1 MG/ML 4 ML VIAL ONE; -Ondansetron INJ* 2 MG/ML VIAL IV PRN; -Ondansetron INJ* 2 MG/ML VIAL ONE; +Ondansetron ODT TAB* 4 MG ONE; +Ondansetron ODT TAB* 4 MG PO ONE; +PROCHLORPERAZINE INJ 5 MG/ML 2 ML VIAL IV PRN; +Phenylephrine 10 MG/ML VIAL* 1 ML VIAL ONE; +Scopolamine 1.5 mg* PATCH TRANSDERM PRN; +Scopolamine PATCH Remove* 1 NOTE MISC PATCH OFF ONE; -ceFAZolin 2 GM PREMIX in ORs 2 GM/50 ML BAG IVPB ONE; +ceFAZolin 2 GM in NS PREMIX(*) 2 GM/100 ML BAG IVPB ONE; +oxyCODONE/Acetamin 5/325 MG* TAB ONE; +oxyCODONE/Acetamin 5/325 MG* TAB PO PRN
[2019-02-19 16:48] VITALS: BP 142/79
--- NOTE | 2019-02-19 20:57 | OP ---
DATE OF OPERATION: 02/19/19 [facility] DATE OF : 60 SURGEON: Juan Crane MD. ASSOCIATE APPLICATION DEVELOPER: Delfina Ellis NP. ANESTHESIA: General. PRE-OP DIAGNOSIS: End-stage renal disease. POST-OP DIAGNOSIS: End-stage renal disease. OPERATIVE PROCEDURE: Right basilic vein arteriovenous fistula transposition. ESTIMATED BLOOD LOSS: None. INDICATIONS: The patient is a 58-year-old female with end-stage renal disease, stage 4, likely to start hemodialysis within the next 3 months. For this reason , the patient was referred for creation of an AV fistula. The patient had under -one a brachiobasilic vein AV fistula; however, this was not superficial enough. For this reason, the patient is being brought in for a basilic vein transposition. DESCRIPTION OF PROCEDURE: The patient was taken to the operating room. She underwent ultrasound mapping of the basilic vein. Markings were done. Identification of the patient and site of surgery. The patient was then taken to the operating room, placed in the supine position. She received preoperative antibiotics, and under general anesthesia, she was prepped and draped in the usual sterile fashion. Appropriate time-out was performed, and after this was completed, we then proceeded to infiltrate lidocaine 1% mixed with Marcaine in the medial aspect of the right arm. An up and down incision was performed in the medial aspect of the arm. The incision was carried down through skin and subcutaneous tissue. Bleeders were controlled by electrocoagulation. Exposure of the basilic vein was performed. This was then traced both proximally and distally down to the anastomosis to the brachial artery and up the incision was extended all the way up to the axilla exposing the entire basilic vein. The medial cutaneous nerve was preserved, and we proceeded to ligate the branches with 4-0 silk sutures and hemoclips and divided them. The entire basilic vein was completely mobilized all the way up to the axilla and down to the anastomosis with the brachial artery. At this point, we proceeded to map out the position where the fistula was going to be under the skin using a curved [place] tunneler. The markings were made. We then proceeded to infiltrate lidocaine 1% and Marcaine into the to-be tunnel area; and, after this was completed, using the curved [place] tunneler, we then proceeded to tunnel from the distal end of the incision near the arterial anastomosis up to the axilla. After this was in place, the patient received 3000 units of heparin. Five minutes later, we proceeded to place the Yasargil at the distal end of the basilic vein. We proceeded to cross-clamp the vein just proximal to the anastomosis and the vein was then transected in an oblique fashion. After this was completed, we then proceeded to attach the vein to the tunneler and then the vein was brought out from the top entrance down to the distal entrance. The tunneler was then removed and the vein was then spatulated. We then proceeded to reanastomose the basilic vein to itself doing a basilic to basilic vein end-to-end anastomosis using 7-0 Prolene. After this was completed, the Yasargil was released, the cross-clamp was released, and excellent flow was noted into the fistula. The fistula was superficial. No bleeding was noted. There was a thrill and a strong Doppler signal all throughout the fistula. After this was done, we checked the incision. Bleeders were controlled by electrocoagulation and we proceeded to close the incision. First, the subcutaneous tissue with interrupted 4-0 Vicryl sutures and the skin with jessica. The patient tolerated the procedure well. A light dressing was applied to the area with Xeroform, 4x4s, and light Kerlix. At the end of the procedure, the patient had excellent capillary refill in the right hand and a very strong Doppler signal on the radial. [id number]/[facility] #: [id number] KANDIS
== END | disposition home or self-care (01) ==
LOC: OR 11:23
PROVIDERS: ATTEND Surgery
DX: I12.9 Hypertensive chronic kidney disease with stage 1 through stage 4 chronic kidney disease, or unspecified chronic kidney disease (principal); N18.4 Chronic kidney disease, stage 4 (severe); F17.210 Nicotine dependence, cigarettes, uncomplicated; I25.2 Old myocardial infarction; I50.9 Heart failure, unspecified
CPT/HCPCS: A9270-GY; C1776; J0690; J1644; J2250; J2704; J3010; J8540

== ENCOUNTER 2019-02-20 04:04 | Emergency (ER) | payer OTHER ==
[2019-02-20 05:07] VITALS: BP 128/72
[2019-02-20] MEDS ORDERED: Morphine 4 MG/ML VIAL (1 ml) 4 MG/ML VIAL IM ONE (05:22)
[2019-02-20] MEDS ORDERED: PROCHLORPERAZINE INJ 5 MG/ML 2 ML VIAL IM ONE (05:22)
--- NOTE | 2019-02-20 05:23 | ED ---
Upper Extremity Pain - HPI Summary HPI Summary: Patient is a 58 y/o F presenting to ED via EMS with complaints of bleeding from right arm and right arm pain. Patient does not speak Swedish, only Haitian, family members translated for patient. Patient had AV fistula placed yesterday by Dr. Crane. This morning, it is reported that the patient woke up with blood all over her arm and in significant pain. Patient had taken her pain medications with minimal relief. Bleeding is controlled at present. She is not on dialysis yet. On triage, pain is rated 7/10. Home medications and allergies are reviewed. - History of Current Complaint Chief Complaint: EDGeneral Stated Complaint: POST OP BLEED ARM PER EMS Time Seen by Provider: 02/20/19 05:15 Hx Obtained From: Patient Mechanism Of Injury: Other - no SALVATORE reported Onset/Duration: Started Hours Ago, Still Present - pain, Resolved - bleeding Timing: Constant, Lasting Hours Severity Currently: Severe Pain Location: Arm - right Aggravating Factor(s): Nothing Alleviating Factor(s): Nothing Associated Signs & Symptoms: Positive: Other - right arm pain and bleeding - Allergies/Home Medications Allergies/Adverse Reactions: Allergies Allergy/AdvReac Type Severity Reaction Status Date / Time No Known Allergies Allergy Verified 02/20/19 04:22 Home Medications: Home Medications Hydrocodone/Acetaminophen [Hydrocodone-Acetamin 5-325 mg] 1 tab PO Q6H PRN 02/20 [History Confirmed 02/20/19] PMH/Surg Hx/FS Hx/Imm Hx Endocrine/Hematology History: Reports: Hx Thyroid Disease - Simple Goiter-per Dr Sharp, Hx Anemia Denies: Hx Diabetes Cardiovascular History: Reports: Hx Cardiomegaly - Per H&P Dr Lange, Hx Congestive Heart Failure - Non ischemic cardiomyopathy/CHF, Per H&P Dr Sharp, Hx Hypercholesterolemia, Hx Hypertension - on medication, Hx Peripheral Vascular Disease - Intermittent claudication per H&PDr Rosa Maria, Christ Valvular Heart Disease - Mild to mod aortic insufficiency, mild mitral insufficiency-Dr Lange, Other Cardiovascular Problems/Disorders - High cholesterol Denies: Hx Angina, Hx Coronary Artery Disease, Hx Myocardial Infarction, Hx Pacemaker/ICD Respiratory History: Reports: Hx Asthma - prn albuterol, Hx Chronic Obstructive Pulmonary Disease (COPD), Other Respiratory Problems/Disorders - Current smoker GI History: Denies: Other GI Disorders History: Reports: Other Problems/Disorders - hx of UTI Musculoskeletal History: Reports: Other Musculoskeletal History - history of back pain near right hip area Sensory History: Denies: Hx Cataracts, Hx Contacts or Glasses, Hx Hearing Aid Opthamlomology History: Denies: Hx Cataracts, Hx Contacts or Glasses Neurological History: Denies: Other Neuro Impairments/Disorders Psychiatric History: Reports: Hx Anxiety - regarding surgery - Surgical History Surgery Procedure, Year, and Place: LOCAL ANESTHESIA. Right arm AV fistula Hx Anesthesia Reactions: No Infectious Disease History: No Infectious Disease History: Reports: Traveled Outside the [place] in Last 30 Days Denies: Hx Clostridium Difficile, Hx Hepatitis, Hx Human Immunodeficiency Virus (HIV), Hx of Known/Suspected MRSA, Hx Shingles, Hx Tuberculosis, History Other Infectious Disease - Family History Known Family History: Positive: Cardiac Disease, Hypertension, Diabetes - Social History Alcohol Use: None Alcohol Amount: 5 drinks a week Hx Substance Use: No Substance Use Type: Reports: None Hx Tobacco Use: Yes Smoking Status (MU): Light Every Day Tobacco Smoker Type: Cigarettes Amount Used/How Often: 2 cigarettes per day X 45 YEARS Have You Smoked in the Last Year: Yes Review of Systems Musculoskeletal: Other - positive - right arm pain Skin: Other - positive - right arm bleeding All Other Systems Reviewed And Are Negative: Yes Physical Exam - Summary Physical Exam Summary: VITAL SIGNS: Reviewed. GENERAL: Patient is a well-developed and nourished female who is lying comfortable in the stretcher. Patient is not in any acute respiratory distress. HEAD AND FACE: No signs of trauma. No ecchymosis, hematomas or skull depressions. No sinus tenderness. EYES: PERRLA, EOMI x 2, No injected conjunctiva, no nystagmus. EARS: Hearing grossly intact. Ear canals and tympanic membranes are within normal limits. MOUTH: Oropharynx within normal limits. NECK: Supple, trachea is midline, no adenopathy, no JVD, no carotid bruit, no c- spine tenderness, neck with full ROM CHEST: Symmetric, no tenderness at palpation LUNGS: Clear to auscultation bilaterally. No wheezing or crackles. CVS: Regular rate and rhythm, S1 and S2 present, no murmurs or gallops appreciated. ABDOMEN: Soft, non-tender. No signs of distention. No rebound no guarding, and no masses palpated. Bowel sounds are normal. EXTREMITIES: FROM in all major joints, no edema, no cyanosis or clubbing. NEURO: Alert and oriented x 3. No acute neurological deficits. Speech is normal and follows commands. SKIN: Dry and warm. Patient has long incision over the right upper arm medially , jessica in place, no induration, no active bleeding, patient is neurovascularly intact. Triage Information Reviewed: Yes Vital Signs On Initial Exam: Initial Vitals Pulse Pulse Ox 69 98 02/20/19 04:13 02/20/19 04:13 Vital Signs Reviewed: Yes Diagnostics - Vital Signs Vital Signs Temp Pulse Resp BP Pulse Ox 02/20/19 05:00 62 98 02/20/19 04:52 60 128/72 98 02/20/19 04:22 97.4 F 66 16 138/75 98 02/20/19 04:13 69 98 - Laboratory Lab Statement: Any lab studies that have been ordered have been reviewed, and results considered in the medical decision making process. Course/Dx - Course Course Of Treatment: Patient is a 58 y/o F presenting to ED via EMS with complaints of bleeding from right arm and right arm pain. Patient does not speak Swedish, only Haitian, family members translated for patient. Patient had AV fistula placed yesterday by Dr. Crane. This morning, it is reported that the patient woke up with blood all over her arm and in significant pain. Patient had taken her pain medications with minimal relief. Bleeding is controlled at present. She is not on dialysis yet. Patient has long incision over the right upper arm medially, jessica in place, no induration, no active bleeding, patient is neurovascularly intact. During ED course, patient was given Compazine 10 mg IM and morphine 4 mg IM. Sling was provided for the patients arm, she was discharged to home and will follow up with surgery within three days. - Diagnoses Provider Diagnoses: Visit for wound check Discharge - Sign-Out/Discharge Documenting (check all that apply): Patient Departure - discharge Patient Received Moderate/Deep Sedation with Procedure: No - Discharge Plan Condition: Stable Disposition: HOME Patient Education Materials: Acute Wound Care (ED) Referrals: Juan Crane MD [Medical Doctor] - 3 Days Betty Bueno MD [Primary Care Provider] - 3 Days Additional Instructions: RETURN TO ED FOR ANY NEW OR WORSENING SYMPTOMS. FOLLOW UP WITH YOUR PRIMARY CARE PHYSICIAN AND SURGEON WITHIN THREE DAYS. - Attestation Statements Document Initiated by Scribe: Yes Documenting Scribe: CORNELIUS GIBSON Provider For Whom Scribe is Documenting (Include Credential): FLASH GARCIA MD Scribe Attestation: ICORNELIUS, scribed for FLASH GARCIA MD on 02/20/19 at 0919. Status of Scribe Document: Ready
== END 2019-02-20 06:00 | disposition home or self-care (01) ==
LOC: ED 04:04
DX: T82.838A Hemorrhage due to vascular prosthetic devices, implants and grafts, initial encounter (principal); I11.0 Hypertensive heart disease with heart failure; I50.9 Heart failure, unspecified; I08.0 Rheumatic disorders of both mitral and aortic valves; J44.9 Chronic obstructive pulmonary disease, unspecified; Z82.49 Family history of ischemic heart disease and other diseases of the circulatory system; Z83.3 Family history of diabetes mellitus; F17.210 Nicotine dependence, cigarettes, uncomplicated
CPT/HCPCS: 96372; 99282; J0780; J2270

== ENCOUNTER 2019-10-04 07:45 | Emergency (ER) | payer OTHER ==
--- NOTE | 2019-10-04 08:12 | ED ---
Respiratory - HPI Summary HPI Summary: Pt. is a 59 y.o female who presents to the ER for ongoing cough x one month. Pt. with hx of ESRD and on dialysis. Pt. notes she had a cardiac cath in [place] 4 days ago. Pt. denies fever, sob, abd. pain, vomiting, chest pain, leg swelling. Pt. notes pain to right groin with coughing. Pt. states cough is keeping her awake at night and presents for evaluation. Sxs are moderate in severity. No current modifying factors. - History of Current Complaint Chief Complaint: EDUpperRespComplaint Stated Complaint: COUGH/PAIN IN LEG PER PT Time Seen by Provider: 10/04/19 08:02 Hx Obtained From: Patient Pain Intensity: 6 - Allergy/Home Medications Allergies/Adverse Reactions: Allergies Allergy/AdvReac Type Severity Reaction Status Date / Time No Known Allergies Allergy Verified 10/04/19 07:52 Home Medications: Home Medications Aspirin EC TAB* [Ecotrin EC Low Dose 81 MG*] 81 mg PO DAILY 03/29/19 [History Confirmed 10/04/19] Carvedilol [Coreg] 25 tab PO BID 08/30/19 [History Confirmed 10/04/19] Ferrous Sulfate TAB* 325 mg PO .3X/WEEK 08/30/19 [History Confirmed 10/04/19] Hydralazine HCl 25 mg PO TID 08/31/19 [History Confirmed 10/04/19] Atorvastatin* [Lipitor*] 40 mg PO BEDTIME 10/04/19 [History Confirmed 10/04/19] Benzonatate CAP* [Tessalon 100 MG CAP*] 100 mg PO TID #12 cap 10/04/19 [Rx] Isosorbide Mononitrate ER TAB* [Imdur ER TAB*] 30 mg PO DAILY 10/04/19 [History Confirmed 10/04/19] Lisinopril TAB* [Prinivil TAB*] 5 mg PO DAILY 10/04/19 [History Confirmed ] PMH/Surg Hx/FS Hx/Imm Hx Previously Healthy: Yes Endocrine/Hematology History: Reports: Hx Thyroid Disease - Simple Goiter-per Dr Sharp, Christ Anemia Denies: Hx Diabetes Cardiovascular History: Reports: Hx Cardiomegaly - Per H&P Dr Lange, Hx Congestive Heart Failure - Non ischemic cardiomyopathy/CHF, Per H&P Dr Sharp, Hx Hypercholesterolemia, Hx Hypertension - on medication, Hx Peripheral Vascular Disease - Intermittent claudication per H&PDr Rosa Maria, Hx Valvular Heart Disease - Mild to mod aortic insufficiency, mild mitral insufficiency-Dr Lange, Other Cardiovascular Problems/Disorders - High cholesterol Denies: Hx Angina, Hx Coronary Artery Disease, Hx Myocardial Infarction, Hx Pacemaker/ICD Respiratory History: Reports: Hx Asthma - prn albuterol, Hx Chronic Obstructive Pulmonary Disease (COPD), Other Respiratory Problems/Disorders - Current smoker GI History: Denies: Other GI Disorders History: Reports: Other Problems/Disorders - hx of UTI Musculoskeletal History: Reports: Other Musculoskeletal History - history of back pain near right hip area Sensory History: Denies: Hx Cataracts, Hx Contacts or Glasses, Hx Hearing Aid Opthamlomology History: Denies: Hx Cataracts, Hx Contacts or Glasses Neurological History: Denies: Other Neuro Impairments/Disorders Psychiatric History: Reports: Hx Anxiety - regarding surgery - Surgical History Surgery Procedure, Year, and Place: LOCAL ANESTHESIA. Right arm AV fistula Hx Anesthesia Reactions: No Infectious Disease History: No Infectious Disease History: Denies: Hx Clostridium Difficile, Hx Hepatitis, Hx Human Immunodeficiency Virus (HIV), Hx of Known/Suspected MRSA, Hx Shingles, Hx Tuberculosis, History Other Infectious Disease, Traveled Outside the [place] in Last 30 Days - Family History Known Family History: Positive: Cardiac Disease, Hypertension, Diabetes, Non- Contributory - Social History Occupation: Unemployed Lives: With Family Alcohol Use: None Alcohol Amount: 5 drinks a week Hx Substance Use: No Substance Use Type: Reports: None Hx Tobacco Use: Yes Smoking Status (MU): Light Every Day Tobacco Smoker Type: Cigarettes Amount Used/How Often: 2 cigarettes per day X 45 YEARS Have You Smoked in the Last Year: Yes Review of Systems Constitutional: Negative Negative: Fever, Chills Cardiovascular: Negative Negative: Palpitations, Chest Pain Positive: Cough. Negative: Shortness Of Breath Gastrointestinal: Negative Musculoskeletal: Negative Skin: Negative Neurological/Mental Status: Negative All Other Systems Reviewed And Are Negative: Yes Physical Exam Vital Signs On Initial Exam: Initial Vitals Temp Pulse Resp BP Pulse Ox 97.7 F 70 16 139/60 98 10/04/19 07:47 10/04/19 07:47 10/04/19 07:47 10/04/19 07:47 10/04/19 07:47 Procedures - Sedation Patient Received Moderate/Deep Sedation with Procedure: No Diagnostics - Vital Signs Vital Signs Temp Pulse Resp BP Pulse Ox 10/04/19 08:10 69 22 99 10/04/19 07:47 97.7 F 70 16 139/60 98 - Laboratory Result Diagrams: 10/04/19 08:47 10/04/19 08:47 Lab Statement: Any lab studies that have been ordered have been reviewed, and results considered in the medical decision making process. Disposition - Course Course Of Treatment: Pt. with c/o cough x 1 month. Afebrile with stable VS. Retail Pharmacy Technician initially used and then Pt.'s family came to ED and were able to translate and give more hx. Family notes that pt. has a "leaky" valve and needs a valve replacement. Family notes they were concerned that increased cough could be secondary to fluid in lungs. Labs at pt.'s baseline. Elevated cr, normal K. Pt. due for dialysis tomorrow. BNP minimally elevated at 115. CXR negative for acute findings per radiology. On re-exam pt. sitting comfortably without complaints. REsults discussed with pt. and family . Tessalon pearls rx for cough. Case reviewed with Dr. Odonnell who agrees with dc. Pt. to call her field cashier today for close .fu and return to er if sxs change or worsen. Pt. and family understand and agree with plan. Assessment/Plan: ECG done at 0817 shows a sinus rhythm of 85bpm, prolonged QT, left axis deviation, silimar to prior tracing. - Differential Dx - Cardiopulmonary Differential Diagnoses - Cardiopulmonary: CAD, CHF, Influenza, Lower Resp Infection - Diagnoses Provider Diagnoses: Cough Discharge ED - Sign-Out/Discharge Documenting (check all that apply): Patient Departure - Discharge Plan Condition: Improved Disposition: HOME Prescriptions: Benzonatate CAP* [Tessalon 100 MG CAP*] 100 mg PO TID #12 cap Patient Education Materials: Chronic Cough (ED) Referrals: Betty Bueno MD [Primary Care Provider] - Additional Instructions: Please call your PCP and heart doctor today for close follow up appointment Return to ER for chest pain, shortness of breath, leg swelling, or if concerned - Billing Disposition and Condition Condition: IMPROVED Disposition: Home
[2019-10-04 09:02] LABS: ABS Basophils 0.1 10^3/ul (0-0.2); ABS Eosinophils 0.2 10^3/ul (0-0.6); ABS Lymphocytes 1.2 10^3/ul (1.0-4.8); ABS Monocytes 0.5 10^3/ul (0-0.8); ABS Neutrophils 2.3 10^3/ul (1.5-7.7); Eosinophil % 4.2 %; Hematocrit 36 % (35-47); Hemoglobin 11.8 g/dL (12.0-16.0); Lymphocyte % 28.8 %; Mean Corpuscular HGB Conc 33 g/dL (31-36); Mean Corpuscular Hemoglobin 33 pg (27-31); Mean Corpuscular Volume 100 fL (80-97); Mean Platelet Volume 6.9 fL (7.4-10.4); Platelet Count 174 10^3/uL (150-450); Red Blood Count 3.58 10^6 /uL (3.70-4.87); Red Cell Distribution Width 15 % (10-15); White Blood Count 4.3 10^3/uL (3.5-10.8)
--- OUTSIDE RECORDS SUMMARY | 2019-10-04 09:17 | XMS REPORT | Continuity of Care Document ---
:1960 External Reference #:[id number] Author Name Ilda Cyr NP (transmitted by agent of provider Madeline Agudelo) [facility] [address] [facility] [place] [address] Care Team Providers Name Role Phone [facility] - Gynecology Care Team Information Surveyor Hydrographic [phone] Josiah Florentino MD - Gastroenterology Care Team Information Surveyor Hydrographic Lelo Sharp MD [facility] - Care Team Information Surveyor Hydrographic Cardiovascular Disease Shaq Miller MD - Dermatology Care Team Information Surveyor Hydrograph[employer] [phone] Janell Clemens MD - Nephrology Care Team Information Surveyor Hydrographic Betty Bueno M.D. - Family Medicine Care Team Information Surveyor Hydrographic Problems Active Problems Provider Date Congestive heart failure Glen Abbasi NP Onset: 01/10/2016 Essential hypertension Glen Abbasi NP Onset: 01/10/2016 Tobacco user Glen Abbasi NP Onset: 01/10/2016 Mixed hyperlipidemia Soren Dowling M.D. Onset: 02/28/2017 Chronic kidney disease stage 4 Soren Dowling M.D. Onset: 02/28/2017 Simple goiter Soren Dowling M.D. Onset: 04/04/2017 Cardiomyopathy, unspecified Soren Dowling M.D. Onset: 04/04/2017 Chronic obstructive lung disease Soren Dowling M.D. Onset: 10/13/2017 Anemia Soren Dowling M.D. Onset: 01/15/2018 Peripheral vascular disease Soren Dowling M.D. Onset: 06/12/2018 Mantoux: positive Josiah Florentino MD Onset: 03/26/2017 Note: saw Infectious disease - on rifampin March 2019 Social History Type Date Description Comments Sex Unknown Cigarette Use Quit - Age 59 ETOH Use Denies alcohol use ETOH Use quit 04/30/16 Recreational Drug Use Denies Drug Use Tobacco Use Start: Unknown Patient is a current 2 cig per day smoker, smokes every day Smoking Status Reviewed: 09/13/19 Patient is a current 2 cig per day smoker, smokes every day Exercise Type/Frequency Walks 3 times a week Allergies, Adverse Reactions, Alerts Active Allergies Reaction Severity Comments Date NKDA 07/30/2019 Inactive Allergies NKDA 01/09/2016 Karan Inhibitors Cough 01/09/2016 Medications Active Medications SIG Qnty Indications Ordering Date Provider Carvedilol 1 tab by mouth 60tabs I42.9 [facility], 09/13/2019 25mg twice a day P[employer]ER SHE[employer]ER Tablets Calcitriol 1 by mouth every 30caps N18.5 Mohammad A. 06/30/2019 0.25mcg other day, friday, MD Smiley Capsules friday and friday Calcium Acetate 1 capsule by mouth 180caps N18.5 Mohammad A. 06/30/2019 (Phos Binder) three times daily MD Smiley 667mg after meals Capsules Kionex take 60 ml/[facility]2019 15GM/60ML once as needed for MD Smiley Suspension hyperkalemia Ensure Original 1 can three times 90units R63.0 Ashley 03/30/2019 Nutrition Shake daily Denice Conte Liquid Rifampin 1 by mouth twice a 60caps Dillon Wayne 03/11/2019 300mg day Denice Bragg Capsules Ventolin HFA 2 puffs by mouth up 8gm Ilda Cyr, 04/27/2018 to four times a day PAP[employer] SHE[employer]ER 108(90Base) mcg/Act as needed Aerosol Isosorbide 1 by mouth every Unknown Mononitrate ER day 30mg Tablets ER 24HR Hydralazine HCL 1 by mouth three Unknown times a day 25mg Tablets Lisinopril 1 by mouth every Unknown 5mg day Tablets Aspirin 81 1 by mouth every Unknown 81mg day Tablets DR Rios 1 by mouth every 30tabs Ilda Cyr, Calcium day bed time PAPER SHEETER 40mg (please deliver) Tablets History Medications Carvedilol 1 tab by mouth twice I42.9 Unknown 09/12/2019 - 25mg a day 09/12/2019 Tablets Lidocaine-Prilocai Apply To The Fistula 30gm Lyndsay Umaña MD 08/27/2019 - ne Before Diaysis 09/12/2019 2.5-2.5% Cream Lidocaine-Prilocai Apply To Thefistula 30gm Lyndsay Umaña MD 08/27/2019 - ne Before Each Dialysis 09/12/2019 2.5-2.5% Cream Carvedilol Take 2 315tabs I42.9 Qutaybeh S. 05/28/2019 - 12.5mg Denice Sharp 09/13/2019 Tablets Ferrousul 1 tab by mouth 3 45tabs N18.5 Mohammad A. 05/26/2019 - times a week MD Smiley 09/12/2019 325(65Fe) mg Tablets Veltassa 1 packet by mouth 30units N18.5 Janell 04/28/2019 - 8.4gm every other day MD Jayleen 05/26/2019 Packet Colyte With Flavor Take according to 4000ml Josiah Doyle. 03/29/2019 - Packs the instructions you MD Chadd 04/15/2019 240gm received the day Solution Rec before and morning of your procedure Immunizations CPT Code Status Date Vaccine Reaction Lot # [id number] Given 07/30/2019 Influenza Virus Vaccine, [id number] Quadrivalent, Split, Preservative Free [id number] Given 10/13/2017 Pneumonia Vaccine no reaction [id number] Vital Signs Date Vital Result Comment 09/13/2019 2:50pm Height 64 inches 5'4" Weight 172.25 lb with shoes Heart Rate 66 /min Left Radia BP Systolic Sitting 138 mmHg Ule BP Diastolic Sitting 66 mmHg Ule BP Systolic Standing 132 mmHg Ule BP Diastolic Standing 62 mmHg Ule BMI (Body Mass Index) 29.6 kg/m2 Ejection Fraction Echo 30-3% 08/02/2019 10:48am Height 64 inches 5'4" Weight 171.00 lb Heart Rate 69 /min BP Systolic Sitting 136 mmHg L arm BP Diastolic Sitting 61 mmHg L arm O2 % BldC Oximetry 100 % BMI (Body Mass Index) 29.3 kg/m2 Results Test Acquired Date Facility Test Result H/L Range Note CBC Auto 08/31/2019 [facility] White Blood 4.9 10^3/uL Normal 3.5-10.[address] [place] [address] [phone] Red Blood Count 3.48 10^6/uL Low 3.70-4.87 Hemoglobin 11.4 g/dL Low 12.0-16.0 Hematocrit 35 % Normal 35-47 Mean Corpuscular Volume 100 fL High 80-97 Mean Corpuscular Hemoglobin 33 pg High 27-31 Mean Corpuscular HGB Conc 33 g/dL Normal 31-36 Red Cell Distribution Width 17 % High 10-15 Platelet Count 218 10^3/uL Normal 150-450 Mean Platelet Volume 6.4 fL Low 7.4-10.4 Abs Neutrophils 2.9 10^3/uL Normal 1.5-7.7 Abs Lymphocytes 1.3 10^3/uL Normal 1.0-4.8 Abs Monocytes 0.6 10^3/uL Normal 0-0.8 Abs Eosinophils 0.1 10^3/uL Normal 0-0.6 Abs Basophils 0.0 10^3/uL Normal 0-0.2 Abs Nucleated RBC 0.0 10^3/uL Granulocyte % 59.4 % Lymphocyte % 26.9 % Monocyte % 12.0 % Eosinophil % 1.0 % Basophil % 0.7 % Nucleated Red Blood Cells % 0.2 Inr/Protime 08/31/2019 [facility] Inr 0.95 Normal 0.82-1.[address] [place] [address] [phone] Laboratory test 08/31/2019 [facility] Partial 40.8 High 26.0- 38.[address] [place] [address] Time PTT [phone] Basic Metabolic 08/31/2019 [facility] Sodium 136 mmol/L Normal 135-[address] [place], [place] [id number] [phone] Potassium 3.9 mmol/L Normal 3.5-5.0 Chloride 96 mmol/L Low 101-111 Co2 Carbon Dioxide 31 mmol/L Normal 22-32 Anion Gap 9 mmol/L Normal 2-11 Glucose 85 mg/dL Normal 70-100 Blood Urea Nitrogen 27 mg/dL High 6-24 Creatinine 3.00 mg/dL High 0.51-0.95 BUN/Creatinine Ratio 9.0 Normal 8-20 Calcium 9.2 mg/dL Normal 8.6-10.3 Egfr Non- 16.0 >60 Egfr 19.3 >60 2 Liver Function 07/30/2019 [facility] Total Protein 5.6 g/dL Low 6.4-8.[address] [place] [address] [phone] Albumin 3.5 g/dL Normal 3.2-5.2 Globulin 2.1 g/dL Normal 2-4 Albumin/Globulin Ratio 1.7 Normal 1-3 Total Bilirubin 0.30 mg/dL Normal 0.2-1.0 Direct Bilirubin 0.10 mg/dL Normal 0.03-0.18 Indirect Bilirubin 0.2 mg/dL Low 0.3-1.0 Alkaline Phosphatase 89 U/L Normal 34-104 Alt 23 U/L Normal 7-52 Ast 18 U/L Normal 13-39 Laboratory test 07/30/2019 [facility] Syphillis Igg Negative Negative finding DRIVE W/[place] [address] [phone] Urine Culture And 07/09/2019 [facility] Urine Culture SEE RESULT [address] [place] [address] [phone] Urinalysis Profile 07/09/2019 [facility] Urine Color Yellow [address] [place] [address] [phone] Urine Appearance Cloudy Urine Specific [place] 1.008 Low 1.010-1.030 Urine pH 7.0 Normal 5-9 Urine Urobilinogen Negative Negative Urine Ketones Negative Negative Urine Protein 1+(30 mg/dL) Abnormal Negative Urine Leukocytes 3+ Abnormal Negative Urine Blood 1+ Abnormal Negative Urine Nitrite Negative Negative Urine Bilirubin Negative Negative Urine Glucose Negative Negative Urine White Blood Cell 2+(11-20/hpf) Abnormal Absent Urine Red Blood Cell Trace(0-2/hpf) Absent Urine Bacteria 1+ Abnormal Absent Urine Squamous Epithelial Cell Present Abnormal Absent Neph Routine 07/09/2019 [facility] Total Protein Random 58 mg/ dL [address] [facility] [place] [address] [phone] Creatinine Random Urine 63.06 mg/dL Quantiferon-TB 07/09/2019 [facility] QuantiferonTb Positive Abnormal Negative 4 [address] Plus [address] [place] [address] Result [phone] TB1 Ag minus Nil Result 2.23 IU/mL TB2 Ag minus Nil Result 1.87 IU/mL Mitogen minus Nil Result 13.83 IU/mL Nil Result 0.05 IU/mL Laboratory test 07/09/2019 [facility] Hemoglobin A1c 5.6 % Normal 4.0-5.[address] [facility] (Glyco HGB) [place] [address] [phone] Hepatitis B Surface Ag Nonreactive Nonreactive Hepatitis B Priya AB Titer Not Immune Abnormal Immune Hepatitis B Core AB Igm Nonreactive Nonreactive Pthi 07/09/2019 [facility] PTH Intact 948.9 pg/mL High 12-88 [address] [place] [address] [phone] Calcium (PTH Intact) 7.8 mg/dL Low 8.6-10.3 Laboratory test 07/09/2019 [facility] Ferritin 8.4 ng/mL Low 11-307 finding [address] [place], [place] [address] [phone] Iron & Iron 07/09/2019 [facility] Iron 87 g/dL Normal 50- 212 Binding Capacity [address] [place] [address] [phone] Unsaturated Iron Binding < 278 g/dL Total Iron Binding Capacity 293 g/dL Normal 250-450 Transferrin 209 mg/dL Normal 203-362 % Iron Saturation 30 % Normal 15-55 Laboratory test 07/09/2019 [facility] Phosphorus 3.8 mg/dL Normal 2.5-5.0 finding [address] [place] [address] [phone] Albumin 3.6 g/dL Normal 3.2-5.2 Basic Metabolic 07/09/2019 [facility] Sodium 141 mmol/L Normal 135-145 Panel [address] [place] [address] [phone] Potassium 5.4 mmol/L High 3.5-5.0 Chloride 113 mmol/L High 101-111 Co2 Carbon Dioxide 21 mmol/L Low 22-32 Anion Gap 7 mmol/L Normal 2-11 Glucose 89 mg/dL Normal 70-100 Blood Urea Nitrogen 64 mg/dL High 6-24 Creatinine 4.77 mg/dL High 0.51-0.95 BUN/Creatinine Ratio 13.4 Normal 8-20 Calcium 8.0 mg/dL Low 8.6-10.3 Egfr Non- 9.4 >60 Egfr 11.3 >60 6 CBC Auto 07/09/2019 [facility] White Blood 3.4 10^3/uL Low 3.5 -10.[address] [place] [address] [phone] Red Blood Count 2.64 10^6/uL Low 3.70-4.87 Hemoglobin 8.7 g/dL Low 12.0-16.0 Hematocrit 26 % Low 35-47 Mean Corpuscular Volume 98 fL High 80-97 Mean Corpuscular Hemoglobin 33 pg High 27-31 Mean Corpuscular HGB Conc 33 g/dL Normal 31-36 Red Cell Distribution Width 15 % Normal 10-15 Platelet Count 153 10^3/uL Normal 150-450 Mean Platelet Volume 7.8 fL Normal 7.4-10.4 Abs Neutrophils 2.0 10^3/uL Normal 1.5-7.7 Abs Lymphocytes 1.0 10^3/uL Normal 1.0-4.8 Abs Monocytes 0.4 10^3/uL Normal 0-0.8 Abs Eosinophils 0.0 10^3/uL Normal 0-0.6 Abs Basophils 0.0 10^3/uL Normal 0-0.2 Abs Nucleated RBC 0.0 10^3/uL Granulocyte % 57.2 % Lymphocyte % 28.7 % Monocyte % 12.5 % Eosinophil % 0.7 % Basophil % 0.9 % Nucleated Red Blood Cells % 0.1 Pthi 06/30/2019 [facility] PTH Intact 1277.5 pg/mL High 12-[address] [place] [address] [phone] Calcium (PTH Intact) 7.3 mg/dL Low 8.6-10.3 Laboratory test 06/30/2019 [facility] Phosphorus 4.9 mg/dL Normal 2.5-5.[address] [place] [address] [phone] Albumin 3.7 g/dL Normal 3.2-5.2 Basic Metabolic 06/30/2019 [facility] Sodium 142 mmol/L Normal 135-[address] [place] [address] [phone] Potassium 5.4 mmol/L High 3.5-5.0 Chloride 116 mmol/L High 101-111 Co2 Carbon Dioxide 19 mmol/L Low 22-32 Anion Gap 7 mmol/L Normal 2-11 Glucose 108 mg/dL High 70-100 Blood Urea Nitrogen 67 mg/dL High 6-24 Creatinine 4.72 mg/dL High 0.51-0.95 BUN/Creatinine Ratio 14.2 Normal 8-20 Calcium 7.2 mg/dL Low 8.6-10.3 Egfr Non- 9.5 >60 Egfr 11.5 >60 7 CBC Auto 06/30/2019 [facility] White Blood 3.3 10^3/uL Low 3.5 -10.[address] [place] [address] [phone] Red Blood Count 2.73 10^6/uL Low 3.70-4.87 Hemoglobin 8.8 g/dL Low 12.0-16.0 Hematocrit 27 % Low 35-47 Mean Corpuscular Volume 98 fL High 80-97 Mean Corpuscular Hemoglobin 32 pg High 27-31 Mean Corpuscular HGB Conc 33 g/dL Normal 31-36 Red Cell Distribution Width 15 % Normal 10-15 Platelet Count 155 10^3/uL Normal 150-450 Mean Platelet Volume 7.6 fL Normal 7.4-10.4 Abs Neutrophils 2.0 10^3/uL Normal 1.5-7.7 Abs Lymphocytes 0.8 10^3/uL Low 1.0-4.8 Abs Monocytes 0.4 10^3/uL Normal 0-0.8 Abs Eosinophils 0.0 10^3/uL Normal 0-0.6 Abs Basophils 0.0 10^3/uL Normal 0-0.2 Abs Nucleated RBC 0.0 10^3/uL Granulocyte % 59.9 % Lymphocyte % 25.5 % Monocyte % 13.4 % Eosinophil % 0.6 % Basophil % 0.6 % Nucleated Red Blood Cells % 0.1 Liver Function 06/30/2019 [facility] Total Protein 6.0 g/dL Low 6.4-8.[address] [place] [address] [phone] Albumin 3.6 g/dL Normal 3.2-5.2 Globulin 2.4 g/dL Normal 2-4 Albumin/Globulin Ratio 1.5 Normal 1-3 Total Bilirubin 0.40 mg/dL Normal 0.2-1.0 Direct Bilirubin 0.10 mg/dL Normal 0.03-0.18 Indirect Bilirubin 0.3 mg/dL Normal 0.3-1.0 Alkaline Phosphatase 98 U/L Normal 34-104 Alt 16 U/L Normal 7-52 Ast 17 U/L Normal 13-39 Urine Culture And 06/30/2019 [facility] Urine Culture SEE RESULT [address] [place] [address] [phone] Urinalysis Profile 06/30/2019 [facility] Urine Color Yellow [address] [place] [address] [phone] Urine Appearance Cloudy Urine Specific [place] 1.008 Low 1.010-1.030 Urine pH 6.0 Normal 5-9 Urine Urobilinogen Negative Negative Urine Ketones Negative Negative Urine Protein 1+(30 mg/dL) Abnormal Negative Urine Leukocytes 3+ Abnormal Negative Urine Blood 1+ Abnormal Negative Urine Nitrite Negative Negative Urine Bilirubin Negative Negative Urine Glucose Negative Negative Urine White Blood Cell 3+(>20/hpf) Abnormal Absent Urine Red Blood Cell 2+(6-10/hpf) Abnormal Absent Urine Bacteria 2+ Abnormal Absent Neph Routine 06/30/2019 [facility] Total Protein Random 57 mg/ dL [address] [place] [address] [phone] Creatinine Random Urine 62.75 mg/dL Hemoglobin/Hematocrit 06/08/2019 [facility] Hemoglobin 8.7 Low 12.0-16.[address] g/[place] [address] [phone] Hematocrit 26 % Low 35-47 Urine Culture And 05/11/2019 [facility] Urine Culture SEE RESULT [address] [place] [address] [phone] Laboratory test 05/11/2019 [facility] Transferrin <pending> finding [address] [place] [address] [phone] Urinalysis Profile 05/11/2019 [facility] Urine Color Yellow [address] [place], [place] [id number] [phone] Urine Appearance Cloudy Urine Specific [place] 1.009 Low 1.010-1.030 Urine pH 6.0 Normal 5-9 Urine Urobilinogen Negative Negative Urine Ketones Negative Negative Urine Protein 1+(30 mg/dL) Abnormal Negative Urine Leukocytes 3+ Abnormal Negative Urine Blood 1+ Abnormal Negative Urine Nitrite Negative Negative Urine Bilirubin Negative Negative Urine Glucose Negative Negative Urine White Blood Cell 3+(>20/hpf) Abnormal Absent Urine Red Blood Cell Absent Absent Urine Bacteria 3+ Abnormal Absent Urine Squamous Epithelial Cell Present Abnormal Absent Neph Routine 05/11/2019 [facility] Total Protein Random 70 mg/ dL [address] [place], [place] [address] [phone] Creatinine Random Urine 68.90 mg/dL Total Protein 05/11/2019 [facility] Urine Total 990 High 0- [address] [facility] Protein/24HR mg/24Hr [place], [place] [address] [phone] Creatinine 05/11/2019 [facility] Urine 895.68 Normal 600-[address] [facility] Creatinine/24 mg/24[place]r [place] [address] Hour [phone] Urine Collection Time 24 hr Urine Total Volume 1800 mL Iron & Iron Binding 05/11/2019 [facility] Iron 47 g/dL Low 50-212 Capacity [address] [place] [address] [phone] Unsaturated Iron Binding < 265 g/dL Total Iron Binding Capacity 280 g/dL Normal 250-450 Transferrin 200 mg/dL Low 203-362 % Iron Saturation 17 % Normal 15-55 Lipid Profile 05/11/2019 [facility] Triglycerides 67 mg/dL 10 (Trig/Chol/HDL) [address] [place] [address] [phone] Cholesterol 161 mg/dL 11 HDL Cholesterol 70.1 mg/dL 12 LDL Cholesterol 78 mg/dL 13 Lipid Panel - 05/11/2019 [facility] Creatine 94 U/L Normal 10- [address] [facility] Kinase(CK) [place] [address] [phone] Comp Metabolic 05/11/2019 [facility] Sodium 140 Normal 135- [address] mmol/[place] [address] [phone] Potassium 5.0 mmol/L Normal 3.5-5.0 Chloride 115 mmol/L High 101-111 Co2 Carbon Dioxide 18 mmol/L Low 22-32 Anion Gap 7 mmol/L Normal 2-11 Glucose 126 mg/dL High 70-100 Blood Urea Nitrogen 70 mg/dL High 6-24 Creatinine 4.70 mg/dL High 0.51-0.95 BUN/Creatinine Ratio 14.9 Normal 8-20 Calcium 7.4 mg/dL Low 8.6-10.3 Total Protein 6.2 g/dL Low 6.4-8.9 Albumin 3.8 g/dL Normal 3.2-5.2 Globulin 2.4 g/dL Normal 2-4 Albumin/Globulin Ratio 1.6 Normal 1-3 Total Bilirubin 0.30 mg/dL Normal 0.2-1.0 Alkaline Phosphatase 98 U/L Normal 34-104 Alt 13 U/L Normal 7-52 Ast 13 U/L Normal 13-39 Egfr Non- 9.5 >60 Egfr 11.5 >60 14 CBC Auto 05/11/2019 [facility] White Blood 3.3 10^3/uL Low 3.5 -10.[address] [place] [address] [phone] Red Blood Count 2.82 10^6/uL Low 3.70-4.87 Hemoglobin 8.8 g/dL Low 12.0-16.0 Hematocrit 27 % Low 35-47 Mean Corpuscular Volume 96 fL Normal 80-97 Mean Corpuscular Hemoglobin 31 pg Normal 27-31 Mean Corpuscular HGB Conc 32 g/dL Normal 31-36 Red Cell Distribution Width 15 % Normal 10-15 Platelet Count 160 10^3/uL Normal 150-450 Mean Platelet Volume 7.3 fL Low 7.4-10.4 Abs Neutrophils 2.0 10^3/uL Normal 1.5-7.7 Abs Lymphocytes 1.0 10^3/uL Normal 1.0-4.8 Abs Monocytes 0.3 10^3/uL Normal 0-0.8 Abs Eosinophils 0.1 10^3/uL Normal 0-0.6 Abs Basophils 0.0 10^3/uL Normal 0-0.2 Abs Nucleated RBC 0.0 10^3/uL Granulocyte % 59.0 % Lymphocyte % 29.1 % Monocyte % 9.3 % Eosinophil % 1.5 % Basophil % 1.1 % Nucleated Red Blood Cells % 0.0 Laboratory test 04/13/2019 [facility] Clotest SEE RESULT BELOW [address] [place] [address] [phone] 1 Standard intensity warfarin therapeutic range: 2.0-3.0 High intensity warfarin therapeutic range: 2.5-3.5 2 Because ethnic data is not always readily available, this report includes an eGFR for both -Americans and non- Americans. The National Kidney Disease Education Program (NKDEP) does not endorse the use of the MDRD equation for patients that are not between the ages of 18 and 70, are , have extremes of body size, muscle mass, or nutritional status, or are non- or non-. According to the National Kidney Foundation, irrespective of diagnosis, the stage of the disease is based on the level of kidney function: Stage Description GFR(mL/min/1.73 m(2)) 1 Kidney damage with normal or decreased GFR 90 2 Kidney damage with mild decrease in GFR 60-89 3 Moderate decrease in GFR 30-59 4 Severe decrease in GFR 15-29 5 Kidney failure <15 (or dialysis) 3 SEE RESULT BELOW Name: COLLEEN MARQUEZ : [address]: Radu Reis MD Acct: [id number] Unit: [id number] AGE: 59 Location: LAB Re07/09/19 SEX: F Status: REG REF SPEC: [id number] SUNSHINE: 07/09/19-[address] [facility] [address]: Radu Reis MD REQ: [id number] RECD: 07/09/19-8726 STATUS: COMP [facility] DR: Betty Bueno MD _ SOURCE: URINE [facility]: ORDERED: Urine Culture Procedure Result Reported Site Urine Culture Final 07/13/19- 1155 ML Organism 1 ESCHERICHIA COLI [place] Count >100,000 (Many) CFU/ML 1. ESCHERICHIA COLI M.I.C. RX --------- ------ Ampicillin >=32 R Cefazolin <=4 S Cefepime <=1 S Ceftriaxone <=1 S Ciprofloxacin <=0.25 S Gentamicin <=1 S Levofloxacin <=0.12 S Meropenem <=0.25 S Nitrofurantoin <=16 S Tetracycline 2 S Pipercillin/Tazobactam <=4 S Trimethoprim/Sulfamethoxazole 80 R Amoxicillin/Clavulanic Acid 8 S Aztreonam <=1 S Contact the Microbiology Department for any additional antibiotic reporting. * ML - Main Lab . END OF REPORT DEPARTMENT OF PATHOLOGY, [address] [place] [address] Elier Casanova M.D. Director [facility] # [id number] 4 M. tuberculosis infection likely 5 Therapeutic target for the treatment of diabetes mellitus patients is <7% HBA1C, and in selective patients <6.0%. Please refer to [place] [employer] diabetic care guidelines for further information. 6 Because ethnic data is not always readily available, this report includes an eGFR for both -Americans and non- Americans. The National Kidney Disease Education Program (NKDEP) does not endorse the use of the MDRD equation for patients that are not between the ages of 18 and 70, are , have extremes of body size, muscle mass, or nutritional status, or are non- or non-. According to the National Kidney Foundation, irrespective of diagnosis, the stage of the disease is based on the level of kidney function: Stage Description GFR(mL/min/1.73 m(2)) 1 Kidney damage with normal or decreased GFR 90 2 Kidney damage with mild decrease in GFR 60-89 3 Moderate decrease in GFR 30-59 4 Severe decrease in GFR 15-29 5 Kidney failure <15 (or dialysis) 7 Because ethnic data is not always readily available, this report includes an eGFR for both -Americans and non- Americans. The National Kidney Disease Education Program (NKDEP) does not endorse the use of the MDRD equation for patients that are not between the ages of 18 and 70, are , have extremes of body size, muscle mass, or nutritional status, or are non- or non-. According to the National Kidney Foundation, irrespective of diagnosis, the stage of the disease is based on the level of kidney function: Stage Description GFR(mL/min/1.73 m(2)) 1 Kidney damage with normal or decreased GFR 90 2 Kidney damage with mild decrease in GFR 60-89 3 Moderate decrease in GFR 30-59 4 Severe decrease in GFR 15-29 5 Kidney failure <15 (or dialysis) 8 SEE RESULT BELOW Name: COLLEEN MARQUEZ : [address]: Radu Reis MD Acct: [id number] Unit: [id number] AGE: 59 Location: LAB Re06/30/19 SEX: F Status: REG REF SPEC: [id number] SUNSHINE: 06/30/[address]: Radu Reis MD REQ: [id number] RECD: 06/30/19 STATUS: COMP [facility] DR: Betty Bueno MD _ SOURCE: URINE SPDESC: ORDERED: Urine Culture Procedure Result Reported Site Urine Culture Final 07/03/19- 08 ML Organism 1 ESCHERICHIA COLI [place] Count >100,000 (Many) CFU/ML 1. ESCHERICHIA COLI M.I.C. RX --------- ------ Ampicillin >=32 R Cefazolin <=4 S Cefepime <=1 S Ceftriaxone <=1 S Ciprofloxacin <=0.25 S Gentamicin <=1 S Levofloxacin <=0.12 S Meropenem <=0.25 S Nitrofurantoin 32 S Tetracycline 2 S Pipercillin/Tazobactam <=4 S Trimethoprim/Sulfamethoxazole 80 R Amoxicillin/Clavulanic Acid 8 S Aztreonam <=1 S Contact the Microbiology Department for any additional antibiotic reporting. * ML - Main Lab . END OF REPORT DEPARTMENT OF PATHOLOGY, [address] [place] [address] Elier Casanova M.D. Director [facility] # [id number] 9 SEE RESULT BELOW Name: COLLEEN MARQUEZ : [address]: Dillon Bragg MD Acct: [id number] Unit: [id number] AGE: 59 Location: LAB Re05/11/19 SEX: F Status: REG REF SPEC: [id number] SUNSHINE: 05/11/19-[address] [facility] [address]: Janell Clemens MD REQ: [id number] RECD: 05/11/19 STATUS: GERMAINE LEAH[facility] DR: lIda Bueno MD _ SOURCE: URINE SPDESC: ORDERED: Urine Culture Procedure Result Reported Site Urine Culture Final 05/13/19- 0841 ML Organism 1 ESCHERICHIA COLI [place] Count >100,000 (Many) CFU/ML 1. ESCHERICHIA COLI M.I.C. RX --------- ------ Ampicillin >=32 R Cefazolin 32 R Cefepime <=1 S Ceftriaxone <=1 S Ciprofloxacin <=0.25 S Gentamicin <=1 S Levofloxacin <=0.12 S Meropenem <=0.25 S Nitrofurantoin 32 S Tetracycline 2 S Trimethoprim/Sulfamethoxazole 160 R Amoxicillin/Clavulanic Acid 8 S Aztreonam <=1 S Contact the Microbiology Department for any additional antibiotic reporting. * ML - Main Lab . END OF REPORT DEPARTMENT OF PATHOLOGY, [address] [place] [address] Elier Casanova M.D. Director [facility] # [id number] 10 Desirable: <150 Borderline High: 150-199 High: 200-499 Very High: >500 11 Desirable: <200 Borderline High: 200-239 High: >239 12 Low: <40 Desirable: 40-60 High: >60 13 Desirable: <100 Near Optimal: 100-129 Borderline High: 130-159 High: 160-189 Very High: >189 14 Because ethnic data is not always readily available, this report includes an eGFR for both -Americans and non- Americans. The National Kidney Disease Education Program (NKDEP) does not endorse the use of the MDRD equation for patients that are not between the ages of 18 and 70, are , have extremes of body size, muscle mass, or nutritional status, or are non- or non-. According to the National Kidney Foundation, irrespective of diagnosis, the stage of the disease is based on the level of kidney function: Stage Description GFR(mL/min/1.73 m(2)) 1 Kidney damage with normal or decreased GFR 90 2 Kidney damage with mild decrease in GFR 60-89 3 Moderate decrease in GFR 30-59 4 Severe decrease in GFR 15-29 5 Kidney failure <15 (or dialysis) 15 SEE RESULT BELOW Name: COLLEEN MARQUEZ : [address]: Josiah Florentino MD Acct: [id number] Unit: [id number] AGE: 59 Location: ENDO Re04/13/19 SEX: F Status: REG REF SPEC: [id number] SUNSHINE: 04/13/19-[address] [facility] [address]: Josiah Florentino MD REQ: [id number] RECD: 04/13/19938 STATUS: GERMAINE LEAHY DR: Betty Bueno MD _ SOURCE: GAS ANTRUM SPDESC: ORDERED: Clotest Procedure Result Reported Site Clotest Final 04/13/19- 1507 ML Clotest Positive * ML - Main Lab . END OF REPORT DEPARTMENT OF PATHOLOGY, [address] [place] [address] Elier Casanova M.D. Director [facility] # [id number] Procedures Date Code Description Status 09/03/2019 91779 Esrd Services 20Yrs 4/More Wkwv-Eo-Zeqb Visits Per Completed Month 08/31/2019 63041 Dialysis Circuit W/ Transluminal Balloon Angioplasty, Completed Peripheral 07/30/2019 14591 EKG Tracing & Interpretation Completed 05/28/2019 30654 EKG Tracing & Interpretation Completed 04/16/2019 98879 EKG Tracing & Interpretation Completed 04/13/2019 97379 Colonoscopy Flexible Diagnostic Completed 04/13/2019 77726 Endoscopy Upper GI Biopsy Completed 04/13/2019 48135804 Colonoscopy Completed 03/16/2019 [id number] Mammogram Completed 01/15/2018 [id number] Colonoscopy Completed 03/26/2017 [id number] Mammogram Completed Medical Devices Description No Information Available Encounters Type Date Location Provider Dx Diagnosis Office Visit 08/02/2019 [facility] Radu Reis, N18.5 Chronic kidney 10:40a disease, stage 5 D63.1 Anemia in chronic kidney disease E87.5 Hyperkalemia E78.5 Hyperlipidemia, unspecified I73.9 Peripheral vascular disease, unspecified Office Visit 07/30/2019 9:00a [facility] Rosannaalexa Melgar, N18.5 Chronic kidney Medicine - Rafatob Denice, FACP disease, stage 5 D63.1 Anemia in chronic kidney disease I73.9 Peripheral vascular disease, unspecified Z72.0 Tobacco use I42.9 Cardiomyopathy, unspecified R63.4 Abnormal weight loss Z23 Encounter for immunization Z00.00 Encntr for general adult medical exam w/o abnormal findings Office Visit 06/30/2019 1:30p [facility] Raud Villanueva8.5 Chronic kidney MD Smiley disease, stage 5 E87.5 Hyperkalemia D63.1 Anemia in chronic kidney disease E78.5 Hyperlipidemia, unspecified Office Visit 06/08/2019 10:10[facility] Dillon Wayne 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 N18.5 Chronic kidney disease, stage 5 Office Visit 05/28/2019 [facility] I42.9 Cardiomyopathy, 3:30p Cardiology Klarissa, FÉLIX unspecified I27.20 Pulmonary hypertension, unspecified E78.5 Hyperlipidemia, unspecified N18.5 Chronic kidney disease, stage 5 I34.0 Nonrheumatic mitral (valve) insufficiency Office Visit 05/26/2019 8:30a [facility] Radu Villanueva8.Rukhsana Chronic kidney MD Smiley disease, stage 5 E87.5 Hyperkalemia E78.5 Hyperlipidemia, unspecified I27.20 Pulmonary hypertension, unspecified I42.9 Cardiomyopathy, unspecified D63.1 Anemia in chronic kidney disease Office Visit 04/28/2019 9:00a [facility] Nikki Mauricio Chronic kidney disease, stage 5 D63.1 Anemia in chronic kidney disease E87.5 Hyperkalemia Office Visit 04/23/2019 8:30a [facility] Dillon Wayne R76.12 Nonspec reaction Infectious Denice Bragg to gamma intrfrn Diseases respns w/o actv tubrclosis N18.5 Chronic kidney disease, stage 5 R63.0 Anorexia Office Visit 04/16/2019 [place] Ilda I42.9 Cardiomyopathy, 3:00p Cardiology FÉLIX Cyr unspecified I10 Essential (primary) hypertension E78.5 Hyperlipidemia, unspecified I27.20 Pulmonary hypertension, unspecified I34.0 Nonrheumatic mitral (valve) insufficiency Office Visit 03/30/2019 10:10a [facility] Jayden [place] R76.12 Nonspec reaction Infectious Denice Bragg to gamma intrfrn Diseases respns w/o actv tubrclosis N18.5 Chronic kidney disease, stage 5 R63.0 Anorexia Office Visit 03/26/2019 [facility] Josiah Raza D64.9 Anemia, 11:15a MD Chadd unspecified N18.5 Chronic kidney disease, stage 5 I42.9 Cardiomyopathy, unspecified Assessments Date Code Description Provider 09/13/2019 N18.6 End stage renal disease Ilda Cyr NP 09/13/2019 I42.9 Cardiomyopathy, unspecified Ilda Cyr NP 09/13/2019 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 Ilda Cyr NP 09/13/2019 I34.0 Nonrheumatic mitral (valve) Ilda Cyr NP insufficiency 09/03/2019 Z99.2 Dependence on renal dialysis Radu Reis MD 08/31/2019 T82.858A Stenosis of other vascular prosthetic Radu Reis MD devices, implants and grafts, initial encounter 08/31/2019 N18.6 End stage renal disease Radu Reis MD 08/02/2019 N18.5 Chronic kidney disease, stage 5 Radu Reis MD 08/02/2019 D63.1 Anemia in chronic kidney disease Radu Reis MD 08/02/2019 E87.5 Hyperkalemia Radu Reis MD 08/02/2019 E78.5 Hyperlipidemia, unspecified Radu Reis MD 08/02/2019 I73.9 Peripheral vascular disease, Radu Reis MD unspecified 07/30/2019 N18.5 Chronic kidney disease, stage 5 Rosanna Melgar M.D., FACP 07/30/2019 D63.1 Anemia in chronic kidney disease Rsoanna Melgar M.D., FACP 07/30/2019 I73.9 Peripheral vascular disease, [facility] M.D., [facility] unspecified 07/30/2019 Z72.0 Tobacco use Rosanna Melgar M.D., FACP 07/30/2019 I42.9 Cardiomyopathy, unspecified Rosanna Melgar M.D., FACP 07/30/2019 R63.4 Abnormal weight loss [facility] M.D., [facility] 07/30/2019 Z23 Encounter for immunization [facility] Mel[facility] M.D., [facility] 07/30/2019 Z00.00 Encounter for general adult medical Rosanna Melgar M.D., [facility] examination without abnormal findings 06/30/2019 N18.5 Chronic kidney disease, stage 5 Radu Reis MD 06/30/2019 E87.5 Hyperkalemia Radu Reis MD 06/30/2019 D63.1 Anemia in chronic kidney disease Radu Reis MD 06/30/2019 E78.5 Hyperlipidemia, unspecified Radu Reis MD 06/08/2019 Z22.7 Latent tuberculosis Dillon Bragg M.D. 06/08/2019 N18.5 Chronic kidney disease, stage 5 Dillon Bragg M.D. 05/28/2019 R94.31 Abnormal electrocardiogram [ECG] Lelo Sharp M.D. [EKG] 05/28/2019 I42.9 Cardiomyopathy, unspecified Ilda Cyr, FÉLIX 05/28/2019 I27.20 Pulmonary hypertension, unspecified Ilda Cyr, [employer]ER [employer] 05/28/2019 E78.5 Hyperlipidemia, unspecified Ilda Cyr, [employer]ER SHE[employer]ER 05/28/2019 N18.5 Chronic kidney disease, stage 5 Ilda Cyr, FÉLIX 05/28/2019 I34.0 Nonrheumatic mitral (valve) Ilda Cyr, [employer] SHE[employer] insufficiency 05/26/2019 N18.5 Chronic kidney disease, stage 5 Radu Reis MD 05/26/2019 E87.5 Hyperkalemia Radu Reis MD 05/26/2019 E78.5 Hyperlipidemia, unspecified Radu Reis MD 05/26/2019 I27.20 Pulmonary hypertension, unspecified Radu Reis MD 05/26/2019 I42.9 Cardiomyopathy, unspecified Radu Reis MD 05/26/2019 D63.1 Anemia in chronic kidney disease Radu Reis MD 04/28/2019 N18.5 Chronic kidney disease, stage 5 Janell Clemens MD 04/28/2019 D63.1 Anemia in chronic kidney disease Janell Clemens MD 04/28/2019 E87.5 Hyperkalemia Janell Clemens MD 04/23/2019 R76.12 Nonspecific reaction to cell mediated Dillon Bragg M.D. immunity measurement of gamma interferon antigen response without active tuberculosis 04/23/2019 N18.5 Chronic kidney disease, stage 5 Dillon Bragg M.D. 04/23/2019 R63.0 Anorexia Dillon Bragg M.D. 04/16/2019 R94.31 Abnormal electrocardiogram [ECG] Lelo Sharp M.D. [EKG] 04/16/2019 I42.9 Cardiomyopathy, unspecified Ilda Thuman, P[employer]ER SHEETER 04/16/2019 I10 Essential (primary) hypertension Ilda Thuman, P[employer]ER SHEETER 04/16/2019 E78.5 Hyperlipidemia, unspecified Ilda Thuman, P[employer]ER SHEETER 04/16/2019 I27.20 Pulmonary hypertension, unspecified Ilda Thuman, P[employer]ER SHEETER 04/16/2019 I34.0 Nonrheumatic mitral (valve) Ilda Thuman, [employer]ER SHE[employer] insufficiency 04/13/2019 D64.9 Anemia, unspecified Josiah Florentino MD 04/13/2019 K57.30 Diverticulosis of large intestine Josiah Florentino MD without perforation or abscess without bleeding 04/13/2019 K31.89 Other diseases of stomach and Josiah Florentino MD duodenum 04/13/2019 N18.5 Chronic kidney disease, stage 5 Josiah Florentino MD 03/30/2019 R76.12 Nonspecific reaction to cell mediated Dillon Bragg M.D. immunity measurement of gamma interferon antigen response without active tuberculosis 03/30/2019 N18.5 Chronic kidney disease, stage 5 Dillon Bragg M.D. 03/30/2019 R63.0 Anorexia Dillon Bragg M.D. 03/26/2019 D64.9 Anemia, unspecified Josiah Florentino MD 03/26/2019 N18.5 Chronic kidney disease, stage 5 Josiah Florentino MD 03/26/2019 I42.9 Cardiomyopathy, unspecified Josiah Florentino MD Plan of Treatment Future Appointment(s):01/28/2020 10:40 am - [facility] - Ilda Cyr, NPN18.6 End stage renal eriprxbL49.9 Cardiomyopathy, unspecifiedNew Medication:Carvedilol 25 mg - 1 tab by mouth twice a dayFollow up:follow up with Dr. Sharp in 1.5 months.I06.1 Rheumatic aortic dywpptrvdupgzW72.0 Nonrheumatic mitral (valve) insufficiency Functional Status Description No Information Available Mental Status Description No Information Available Referrals Refer to Dr Reason for Referral Status Appt Date Dillon Bragg MD Positive Quantiferon. Starting HD soon. Sent CXR is ordered. [address] [place] [address] [place] [address] [phone] Bob Rubin MD Sent [address] [facility] [address] [place] [address] [phone] Brooklyn Ortega MD Sent 06/24/[address] [place] [address] [phone]
[2019-10-04 09:21] LABS: Albumin/Globulin Ratio 1.4 (1-3); C Reactive Protein 13.84 mg/L (<8.01); Calcium 9.1 mg/dL (8.6-10.3); EGFR African American 8.4 (>60); EGFR Non-African American 6.9 (>60); Globulin 2.8 g/dL (2-4); Potassium 4.8 mmol/L (3.5-5.0); Total Bilirubin 0.5 mg/dL (0.2-1.0); Total Protein 6.8 g/dL (6.4-8.9)
[2019-10-04 09:22] LABS: Troponin I 0.02 ng/mL (<0.03)
[2019-10-04 11:40] VITALS: BP 137/64
== END 2019-10-04 11:30 | disposition home or self-care (01) ==
LOC: ED 07:45
DX: R05 Cough (principal); E03.9 Hypothyroidism, unspecified; I51.7 Cardiomegaly; I50.9 Heart failure, unspecified; E78.00 Pure hypercholesterolemia, unspecified; I10 Essential (primary) hypertension; I73.9 Peripheral vascular disease, unspecified; F17.210 Nicotine dependence, cigarettes, uncomplicated; Z79.82 Long term (current) use of aspirin; Z79.899 Other long term (current) drug therapy
CPT/HCPCS: 36415; 71046; 80053; 83880; 84484; 85025; 86140; 93005; 99283

== ENCOUNTER 2019-11-01 13:24 | Emergency (ER) | payer OTHER ==
--- OUTSIDE RECORDS SUMMARY | 2019-11-01 13:44 | XMS REPORT | Continuity of Care Document ---
:1960 External Reference #:[id number] Author Name Magnus Guzman OD (transmitted by agent of provider Priyanka Martinez) Address [address] [place] [address] Care Team Providers Name Role Phone Betty Bueno M.D. 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 [phone] Problems Description No Information Available Social History Type Date Description Comments Sex Unknown ETOH Use Denies alcohol use Tobacco Use Start: Unknown Patient is a current smoker, smokes some days Smoking Status Reviewed: 10/08/19 Patient is a current smoker, smokes some days Allergies, Adverse Reactions, Alerts Description No Known Drug Allergies Medications Active Medications SIG Qnty Indications Ordering Provider Date Lisinopril 1 by mouth every Unknown 30mg Tablets day Aspirin 81 1 by mouth every Unknown 81mg Tablets DR day Atorvastatin Calcium Unknown 40mg Tablets Carvedilol 1 tab by mouth Unknown 12.5mg Tablets twice a day Hydralazine HCL take one three Unknown 25mg times per day Tablets Isosorbide Mononitrate 1 by mouth every Unknown ER day 30mg Tablets ER 24HR Immunizations Description No Information Available Vital Signs Date Vital Result Comment 10/08/2019 11:30am Intraocular Pressure Right Eye 15 mmHg Intraocular Pressure Left Eye 15 mmHg Results Description No Information Available Procedures Date Code Description Status 10/08/2019 18392 Fundus Photography W/Interpretation & Report Completed 10/08/2019 47944 Gonioscopy Completed 10/08/2019 66366 Refraction Completed 10/08/2019 72669 Eye Exam New Comprehensive Completed Medical Devices Description No Information Available Encounters Description No Information Available Assessments Date Code Description Provider 10/08/2019 H40.033 Anatomical narrow angle, bilateral Magnus Guzman, OD 10/08/2019 H25.13 Age-related nuclear cataract, bilateral Magnus Guzman, OD 10/08/2019 H40.013 Open angle with borderline findings, low risk, Magnus Guzman, OD bilateral 10/08/2019 D23.121 Other benign neoplasm of skin of left upper Maguns Guzman , OD eyelid, including canthus 10/08/2019 H52.03 Hypermetropia, bilateral Magnus Guzman, OD Plan of Treatment 10/08/2019 - Magnus Guzman, ODH40.033 Anatomical narrow angle, bilateralFollow up:yearly full, sooner PRNH25.13 Age-related nuclear cataract, bilateralFollow up:yearly full, sooner PRNH40.013 Open angle with borderline findings, low risk , bilateralFollow up:yearly full, sooner PRND23.121 Other benign neoplasm skin/ left upper eyelid, inc canthusFollow up:yearly full, sooner PRNH52.03 Hypermetropia, bilateralFollow up:yearly full, sooner PRN Functional Status Description No Information Available Mental Status Description No Information Available Referrals Description No Information Available
--- OUTSIDE RECORDS SUMMARY | 2019-11-01 13:44 | XMS REPORT | Continuity of Care Document ---
:1960 External Reference #:[id number] Author Name Magnus Guzman, OD Address [address] [place] [address] Care Team Providers Name Role Phone Betty Bueno M.D. 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 [phone] Problems Description No Information Available Social History [...] Available Procedures Date Code Description Status 10/08/2019 26617 Fundus Photography W/Interpretation & Report Completed 10/08/2019 26531 Gonioscopy Completed 10/08/2019 48956 Refraction Completed 10/08/2019 24408 Eye Exam New Comprehensive Completed Medical Devices Description No Information Available Encounters Description No Information Available Assessments Date Code Description Provider 10/08/2019 H40.033 Anatomical narrow angle, bilateral Magnus Guzman, OD 10/08/2019 H25.13 Age-related nuclear cataract, bilateral Magnus Guzman, OD 10/08/2019 H52.03 Hypermetropia, bilateral Magnus Guzman, OD 10/08/2019 H40.013 Open angle with borderline findings, low risk, Magnus Guzman, OD bilateral 10/08/2019 D23.121 Other benign neoplasm of skin of left upper Magnus Guzman , OD eyelid, including canthus Plan of Treatment 10/08/2019 - Magnus Guzman, ODH40.033 Anatomical narrow angle, bilateralFollow up:yearly full, sooner PRNH25.13 Age-related nuclear cataract, bilateralFollow up:yearly full, sooner PRNH52.03 Hypermetropia, bilateralFollow up:yearly full, sooner PRNH40.013 Open angle with borderline findings, low risk, bilateralFollow up:yearly full, sooner PRND23.121 Other benign neoplasm skin/ left upper eyelid, inc canthusFollow up:yearly full, sooner PRN Functional Status Description No Information Available Mental Status Description No Information Available Referrals Description No Information Available
--- NOTE | 2019-11-01 13:55 | ED ---
Complex/Multi-Sys Presentation - HPI Summary HPI Summary: 59 year old Upper Sorbian speaking female with a significant past medical history of CKD on HD 3 times weekly, last dialyzed 2 days ago presents to the emergency department with a CC of cough x 1 month with chest pain caused by her cough. Pt states her chest pain is a 2/10 when coughing with associated sore throat, and this coughing is keeping her up at night. Pt has no light headedness, abdominal pain, arm pain, jaw pain or pain with exertion with her chest pain. Pt denies fever, abdominal pain, SOB, headache, rash, N/V/D. - History Of Current Complaint Chief Complaint: EDUpperRespComplaint Time Seen by Provider: 11/01/19 13:37 Hx Obtained From: Patient Onset/Duration: Gradual Onset, Lasting Weeks Timing: Intermittent, Lasting:, Seconds Severity Currently: Mild Severity Initially: Mild Character: Sharp Associated Signs And Symptoms: Positive: Cough, Chest Pain - with cough, Immunocompromised - Allergies/Home Medications Allergies/Adverse Reactions: Allergies Allergy/AdvReac Type Severity Reaction Status Date / Time No Known Allergies Allergy Verified 11/01/19 13:33 Home Medications: Home Medications Aspirin EC TAB* [Ecotrin EC Low Dose 81 MG*] 81 mg PO DAILY 03/29/19 [History Confirmed 11/01/19] Carvedilol [Coreg] 25 tab PO BID 08/30/19 [History Confirmed 11/01/19] Hydralazine HCl 25 mg PO TID 08/31/19 [History Confirmed 11/01/19] Atorvastatin* [Lipitor*] 40 mg PO BEDTIME 10/04/19 [History Confirmed 11/01/19] Isosorbide Mononitrate ER TAB* [Imdur ER TAB*] 30 mg PO DAILY 10/04/19 [History Confirmed 11/01/19] Lisinopril TAB* [Prinivil TAB*] 5 mg PO DAILY 10/04/19 [History Confirmed ] Albuterol HFA INHALER* [Ventolin HFA Inhaler*] 2 puff INH QID PRN 11/01/19 [ History Confirmed 11/01/19] Calcitriol CAP* [Rocaltrol CAP*] 0.25 mcg PO MOWEFR 11/01/19 [History Confirmed 11/01/19] Calcium Acetate CAP* [Phoslo CAP*] 667 mg PO TID WITH MEALS 11/01/19 [History Confirmed 11/01/19] Lactose-Reduced Food [Ensure Original] 237 ml PO TID 11/01/19 [History Confirmed 11/01/19] RiFAMPin CAP* 300 mg PO BID 11/01/19 [History Confirmed 11/01/19] Sodium Polystyrene Sulfon/Sorb [Kionex] 15 gm PO ONCE 11/01/19 [History Confirmed 11/01/19] PMH/Surg Hx/FS Hx/Imm Hx Endocrine/Hematology History: Reports: Hx Thyroid Disease - Simple Goiter-per Dr Sharp, Hx Anemia Denies: Hx Diabetes Cardiovascular History: Reports: Hx Cardiomegaly - Per H&P Dr Lange, Hx Congestive Heart Failure - Non ischemic cardiomyopathy/CHF, Per H&P Dr Sharp, Hx Hypercholesterolemia, Hx Hypertension - on medication, Hx Peripheral Vascular Disease - Intermittent claudication per H&PDr Crane, Hx Valvular Heart Disease - Mild to mod aortic insufficiency, mild mitral insufficiency-Dr Lange, Other Cardiovascular Problems/Disorders - High cholesterol Denies: Hx Angina, Hx Coronary Artery Disease, Hx Myocardial Infarction, Hx Pacemaker/ICD Respiratory History: Reports: Hx Asthma - prn albuterol, Hx Chronic Obstructive Pulmonary Disease (COPD), Other Respiratory Problems/Disorders - Current smoker GI History: Denies: Other GI Disorders History: Reports: Other Problems/Disorders - hx of UTI Musculoskeletal History: Reports: Other Musculoskeletal History - history of back pain near right hip area Sensory History: Denies: Hx Cataracts, Hx Contacts or Glasses, Hx Hearing Aid Opthamlomology History: Denies: Hx Cataracts, Hx Contacts or Glasses Neurological History: Denies: Other Neuro Impairments/Disorders Psychiatric History: Reports: Hx Anxiety - regarding surgery - Surgical History Surgery Procedure, Year, and Place: LOCAL ANESTHESIA. Right arm AV fistula Hx Anesthesia Reactions: No Infectious Disease History: No Infectious Disease History: Denies: Hx Clostridium Difficile, Hx Hepatitis, Hx Human Immunodeficiency Virus (HIV), Hx of Known/Suspected MRSA, Hx Shingles, Hx Tuberculosis, History Other Infectious Disease, Traveled Outside the [place] in Last 30 Days - Family History Known Family History: Positive: Cardiac Disease, Hypertension, Diabetes, Non- Contributory - Social History Alcohol Use: None Alcohol Amount: 5 drinks a week Hx Substance Use: No Substance Use Type: Reports: None Hx Tobacco Use: Yes Smoking Status (MU): Light Every Day Tobacco Smoker Type: Cigarettes Amount Used/How Often: 2 cigarettes per day X 45 YEARS Have You Smoked in the Last Year: Yes Review of Systems Constitutional: Negative Eyes: Negative ENT: Negative Cardiovascular: Negative Positive: Cough Gastrointestinal: Negative Genitourinary: Negative Musculoskeletal: Negative Skin: Negative Neurological/Mental Status: Negative Psychological: Normal All Other Systems Reviewed And Are Negative: Yes Physical Exam - Summary Physical Exam Summary: Patient is in no acute distress resting comfortably in the hospital stretcher. Mild cough is noted. No dental, pulses. No accessory muscle use or labored breathing. No stridor. No wheezing. Triage Information Reviewed: Yes Vital Signs On Initial Exam: Initial Vitals Temp Pulse Resp BP Pulse Ox 98.0 F 67 18 152/69 97 11/01/19 13:25 11/01/19 13:25 11/01/19 13:25 11/01/19 13:25 11/01/19 13:25 Vital Signs Reviewed: Yes Appearance: Positive: Well-Appearing, No Pain Distress, Well-Nourished Skin: Positive: Warm, Skin Color Reflects Adequate Perfusion Eyes: Positive: EOMI, JEFF ENT: Positive: Hearing grossly normal Respiratory/Lung Sounds: Positive: Clear to Auscultation, Breath Sounds Present Cardiovascular: Positive: RRR, Murmur, S1, S2 Abdomen Description: Positive: Nontender, Soft Bowel Sounds: Positive: Present Musculoskeletal: Positive: Strength/ROM Intact Neurological: Positive: Sensory/Motor Intact, Alert, Oriented to Person Place, Time, Normal Gait, Facial Symmetry, Speech Normal Psychiatric: Positive: Normal, Affect/Mood Appropriate AVPU Assessment: Alert Procedures - Sedation Patient Received Moderate/Deep Sedation with Procedure: No Diagnostics - Vital Signs Vital Signs Temp Pulse Resp BP Pulse Ox 11/01/19 13:47 16 11/01/19 13:25 98.0 F 67 18 152/69 97 - Laboratory Result Diagrams: 11/01/19 14:28 11/01/19 14:28 Lab Statement: Any lab studies that have been ordered have been reviewed, and results considered in the medical decision making process. Complex Multi-Symp Course/Dx Course Of Treatment: Pt was evaluated in the emergency department today for cough with associated sore throat and chest pain. Vitals noted and stable. Patient afebrile. Patient was in no acute distress with no evidence of accessory muscle use. Patient's chest pain appeared to be solely due to her cough based on her history. EKG was done promptly which shows no evidence of STEMI. Normal sinus rhythm at a rate of 62 bpm. Normal axis, NC interval. Mildly prolonged QT interval at 483. There is T-wave inversions in lead 3, aVF. T-wave inversions are new compared to prior EKG done on 10/04/2019 where she had flattened T waves in leads 3. Chest x-ray shows stigmata of obstructive lung disease however there is no obvious infiltrate or atelectasis. Laboratory studies returned showing No leukocytosis with a white blood cell count of 5.1. C-reactive protein mildly elevated at 8.14. There is mild anemia noted with an H&H of 10.3/30. This is the patients baseline. BUN and creatinine are elevated at 48/6.52 however this is the patients baseline. Troponin returned at 0.01. There are no significant electrolyte abnormalities. Patient's chest pain appears to be due to cough and is benign with no evidence of STEMI. Patient's cough is likely due to viral upper respiratory infection which will resolve shortly. Patient is to follow-up with her sample tester grinder tomorrow at dialysis for further evaluation and management and possible prescription of stronger antitussive medications. - Diagnoses Differential Diagnoses/HQI/PQRI: Metabolic Abnormality, Urinary Tract Infection , Other - Pneumonia, virus Provider Diagnoses: Cough, Chest pain Discharge ED - Sign-Out/Discharge Documenting (check all that apply): Patient Departure - Discharge Plan Condition: Stable Disposition: HOME Patient Education Materials: Chest Pain (ED) Print Language: ARABIC Referrals: Betty Bueno MD [Primary Care Provider] - 3 Days Additional Instructions: There appears to be no significant medical pathology requiring intervention at this time. I'm uncertain what is causing your cough however please follow-up with your primary care provider for further evaluation and management. Please take Robitussin as needed for cough. Please return to this emergency department immediately should you develop any new or worsening symptoms. - Billing Disposition and Condition Condition: STABLE Disposition: Home
[2019-11-01 14:38] LABS: ABS Basophils 0.1 10^3/ul (0-0.2); ABS Eosinophils 0.1 10^3/ul (0-0.6); ABS Lymphocytes 1.6 10^3/ul (1.0-4.8); ABS Monocytes 0.6 10^3/ul (0-0.8); ABS Neutrophils 2.7 10^3/ul (1.5-7.7); Eosinophil % 2.1 %; Hematocrit 30 % (35-47); Hemoglobin 10.3 g/dL (12.0-16.0); Lymphocyte % 31.7 %; Mean Corpuscular HGB Conc 34 g/dL (31-36); Mean Corpuscular Hemoglobin 34 pg (27-31); Mean Corpuscular Volume 99 fL (80-97); Mean Platelet Volume 7.3 fL (7.4-10.4); Platelet Count 173 10^3/uL (150-450); Red Blood Count 3.07 10^6 /uL (3.70-4.87); Red Cell Distribution Width 14 % (10-15); White Blood Count 5.1 10^3/uL (3.5-10.8)
[2019-11-01 14:58] LABS: Albumin 3.8 g/dL (3.2-5.2); Albumin/Globulin Ratio 1.4 (1-3); BUN/Creatinine Ratio 7.4 (8-20); C Reactive Protein 8.14 mg/L (<8.01); Calcium 9.3 mg/dL (8.6-10.3); EGFR African American 7.9 (>60); EGFR Non-African American 6.5 (>60); Globulin 2.8 g/dL (2-4); Magnesium 2.3 mg/dL (1.9-2.7); Potassium 4.7 mmol/L (3.5-5.0); Total Bilirubin 0.4 mg/dL (0.2-1.0); Total Protein 6.6 g/dL (6.4-8.9)
[2019-11-01 15:09] LABS: Troponin I 0.01 ng/mL (<0.03)
[2019-11-01 15:45] VITALS: BP 137/59
== END 2019-11-01 15:37 | disposition home or self-care (01) ==
LOC: ED 13:24
DX: R05 Cough (principal); R07.9 Chest pain, unspecified; I12.9 Hypertensive chronic kidney disease with stage 1 through stage 4 chronic kidney disease, or unspecified chronic kidney disease; N18.9 Chronic kidney disease, unspecified; E03.9 Hypothyroidism, unspecified; I73.9 Peripheral vascular disease, unspecified; J44.9 Chronic obstructive pulmonary disease, unspecified; Z79.899 Other long term (current) drug therapy; Z79.82 Long term (current) use of aspirin; F17.210 Nicotine dependence, cigarettes, uncomplicated; R94.31 Abnormal electrocardiogram [ECG] [EKG]
CPT/HCPCS: 36415; 71046; 80053; 83735; 84484; 85025; 86140; 93005; 99283

== ENCOUNTER 2019-11-05 11:50 | Emergency (ER) | payer OTHER ==
--- NOTE | 2019-11-05 12:00 | ED ---
Laceration/Wound HPI - HPI Summary HPI Summary: 59 y/o Maori speaking F with hx dialysis and cardiac disease presenting to [facility] c/o laceration to left palm after she accidentally cut herself with a knife while peeling potatoes today. 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 Patient reports 4/10 left palm pain. No other pain. She is not up to date on her tetanus vaccination. - History of Current Complaint Stated Complaint: LACERATION Time Seen by Provider: 11/05/19 11:56 Hx Obtained From: Patient Mechanism of Injury: Other - after she accidentally cut herself with a knife while peeling potatoes Onset/Duration: Lasting Minutes, Still Present Aggravating: Nothing Alleviating: Nothing Timing: Constant Current Severity: Moderate Pain Intensity: 4 Pain Scale Used: 0-10 Numeric - Additional Pertinent History Primary Care Physician: [id number] - Allergy/Home Medications Allergies/Adverse Reactions: Allergies Allergy/AdvReac Type Severity Reaction Status Date / Time No Known Allergies Allergy Verified 11/01/19 13:33 Home Medications: Home Medications Aspirin EC TAB* [Ecotrin EC Low Dose 81 MG*] 81 mg PO DAILY 03/29/19 [History Confirmed 11/01/19] Carvedilol [Coreg] 25 tab PO BID 08/30/19 [History Confirmed 11/01/19] Hydralazine HCl 25 mg PO TID 08/31/19 [History Confirmed 11/01/19] Atorvastatin* [Lipitor*] 40 mg PO BEDTIME 10/04/19 [History Confirmed 11/01/19] Isosorbide Mononitrate ER TAB* [Imdur ER TAB*] 30 mg PO DAILY 10/04/19 [History Confirmed 11/01/19] Lisinopril TAB* [Prinivil TAB*] 5 mg PO DAILY 10/04/19 [History Confirmed ] Albuterol HFA INHALER* [Ventolin HFA Inhaler*] 2 puff INH QID PRN 11/01/19 [ History Confirmed 11/01/19] Calcitriol CAP* [Rocaltrol CAP*] 0.25 mcg PO MOWEFR 11/01/19 [History Confirmed 11/01/19] Calcium Acetate CAP* [Phoslo CAP*] 667 mg PO TID WITH MEALS 11/01/19 [History Confirmed 11/01/19] Lactose-Reduced Food [Ensure Original] 237 ml PO TID 11/01/19 [History Confirmed 11/01/19] RiFAMPin CAP* 300 mg PO BID 11/01/19 [History Confirmed 11/01/19] Sodium Polystyrene Sulfon/Sorb [Kionex] 15 gm PO ONCE 11/01/19 [History Confirmed 11/01/19] PMH/Surg Hx/FS Hx/Imm Hx Endocrine/Hematology History: Reports: Hx Thyroid Disease - Simple Goiter-per Dr Sharp, Hx Anemia Denies: Hx Diabetes Cardiovascular History: Reports: Hx Cardiomegaly - Per H&P Dr Lange, Hx Congestive Heart Failure - Non ischemic cardiomyopathy/CHF, Per H&P Dr Sharp, Hx Hypercholesterolemia, Hx Hypertension - on medication, Hx Peripheral Vascular Disease - Intermittent claudication per H&PDr Crane, Hx Valvular Heart Disease - Mild to mod aortic insufficiency, mild mitral insufficiency-Dr Lange, Other Cardiovascular Problems/Disorders - High cholesterol Denies: Hx Angina, Hx Myocardial Infarction, Hx Pacemaker/ICD Respiratory History: Reports: Hx Asthma - prn albuterol, Hx Chronic Obstructive Pulmonary Disease (COPD), Other Respiratory Problems/Disorders - Current smoker GI History: Denies: Other GI Disorders History: Reports: Other Problems/Disorders - hx of UTI Musculoskeletal History: Reports: Other Musculoskeletal History - history of back pain near right hip area Neurological History: Denies: Other Neuro Impairments/Disorders Psychiatric History: Reports: Hx Anxiety - regarding surgery - Surgical History Surgical History: Yes Surgery Procedure, Year, and Place: right arm AV fistula Hx Anesthesia Reactions: No Infectious Disease History: No Infectious Disease History: Denies: Hx Clostridium Difficile, Hx Hepatitis, Hx Human Immunodeficiency Virus (HIV), Hx of Known/Suspected MRSA, Hx Shingles, Hx Tuberculosis, History Other Infectious Disease, Traveled Outside the [place] in Last 30 Days - Family History Known Family History: Positive: Cardiac Disease, Hypertension, Diabetes - Social History Alcohol Use: Weekly Alcohol Amount: 5 drinks a week Hx Substance Use: No Substance Use Type: Reports: None Hx Tobacco Use: Yes Smoking Status (MU): Light Every Day Tobacco Smoker Type: Cigarettes Amount Used/How Often: 2 cigarettes per day X 45 YEARS Have You Smoked in the Last Year: Yes Review of Systems Positive: Other - left palm pain Positive: Other - left palm laceration All Other Systems Reviewed And Are Negative: Yes Physical Exam - Summary Physical Exam Summary: General: Well appearing, no distress HEENT: PERRL Cardiovascular: Skin is well perfused Pulmonary: No respiratory distress, no tachypnea Abdomen: Non-distended Skin: Warm, pink, dry; 2-cm laceration and 1-cm laceration on the palmar surface of the left hand MSK: L Hand PE Motor: Opposition of thumb and first finger intact Able to cross first and second finger Able to extend thumb Able to flex and extend wrist Able to spread fingers Sensory: Sensation intact in 1st, 2nd, and 5th digits Pulse: 2+ radial pulse intact. Brisk cap refill. Psych: Normal affect Neuro: A&Ox3 Triage Information Reviewed: Yes Vital Signs On Initial Exam: Initial Vitals Temp Pulse Resp BP Pulse Ox 96.9 F 74 18 100/57 99 11/05/19 11:52 11/05/19 11:52 11/05/19 11:52 11/05/19 11:52 11/05/19 11:52 Vital Signs Reviewed: Yes Procedures - Sedation Patient Received Moderate/Deep Sedation with Procedure: No - Laceration/Wound Repair 1 Location: upper extremity Description: Linear Length, Depth and Shape: 2 cm, 1 cm linear Irrigated w/ Saline (ccs): 500 Laceration/Wound Explored: clean Closure: SteriStrips Diagnostics - Vital Signs Vital Signs Temp Pulse Resp BP Pulse Ox 11/05/19 11:52 96.9 F 74 18 100/57 99 - Laboratory Lab Statement: Any lab studies that have been ordered have been reviewed, and results considered in the medical decision making process. Laceration Repair Course/Dx - Course Course Of Treatment: 59 y/o female w ESRD p/w serration to left hand. Two superficial lacerations, cleaned and placed Steri-Strips. Updated tetanus. - Clinical Impression Provider Diagnoses: Laceration Discharge ED - Sign-Out/Discharge Documenting (check all that apply): Patient Departure - Discharge Plan Condition: Stable Disposition: HOME Patient Education Materials: Laceration (ED) Print Language: IRISH Referrals: Betty Bueno MD [Primary Care Provider] - Additional Instructions: You received steri strips today. Please keep the area dry and clean. Return to the emergency department or seek medical attention for drainage, redness to the area, increased pain around the laceration. Once the wound is healed, you can apply sunscreen to help with scar prevention. - Billing Disposition and Condition Condition: STABLE Disposition: Home - Attestation Statements Document Initiated by Chandan: Yes Documenting Scribe: Nicole Addisno Provider For Whom Chandan is Documenting (Include Credential): Rain Ding MD Scribe Attestation: INicole, scribed for Rain Ding MD on 11/05/19 at 1238. Scribe Documentation Reviewed: Yes Provider Attestation: The documentation as recorded by the eliseoibeNicole accurately reflects the service I personally performed and the decisions made by me, Rain Ding MD Status of Scribe Document: Viewed
--- OUTSIDE RECORDS SUMMARY | 2019-11-05 12:04 | XMS REPORT | Continuity of Care Document ---
:1960 External Reference #:[id number] Author Name Radu Reis MD (transmitted by agent of provider Sommer Rodrigues) Address [address] [place] [address] Care Team Providers Name Role Phone [facility] - Gynecology Care Team Information Radio Reporter Josiah Florentino MD - Gastroenterology Care Team Information Radio Reporter [phone] Lelo Sharp MD [facility] - Care Team Information Radio Reporter Cardiovascular Disease Shaq Miller MD - Dermatology Care Team Information Radio Reporter Janell Clemens MD - Nephrology Care Team Information Radio Reporter [phone] Betty Bueno M.D. - Family Medicine Care Team Information Radio Reporter [phone] Problems Active Problems Provider Date Congestive heart failure Glenman Abbasi NP Onset: 01/10/2016 Essential hypertension Glen Abbasi NP Onset: 01/10/2016 Tobacco user Glen Abbasi NP Onset: 01/10/2016 Mixed hyperlipidemia Soren Dowling M.D. Onset: 02/28/2017 Chronic kidney disease stage 4 Soren Dowling M.D. Onset: 02/28/2017 Simple goiter Soern Dowling M.D. Onset: 04/04/2017 Cardiomyopathy, unspecified Soren [...] smoker, smokes every day Smoking Status Reviewed: 10/15/19 Patient is a current 2 cig per day smoker, smokes every day Exercise Type/Frequency Walks 3 times a week Allergies, Adverse Reactions, Alerts Active Allergies Reaction Severity Comments Date NKDA 07/30/2019 Inactive Allergies NKDA 01/09/2016 Karan Inhibitors Cough 01/09/2016 Medications Active Medications SIG Qnty Indications Ordering Date Provider Carvedilol 1 tab by mouth 60tabs I42.9 [facility], 09/13/2019 25mg twice a day SMALL ARMS REPAIRER Tablets Calcitriol 1 by mouth every 30caps N18.5 Mohammad A. 06/30/2019 0.25mcg other day, friday, MD Smiley Capsules friday and friday Calcium Acetate 1 capsule by mouth 180caps N18.5 Mohammad A. 06/30/2019 (Phos Binder) three times daily MD Smiley 667mg after meals Capsules Kionex take 60 ml/15 g 1200ml [facility] 05/04/2019 15GM/60ML once as needed for MD Smiley Suspension hyperkalemia Ensure Original 1 can three times 90units R63.0 Ashley 03/30/2019 Nutrition Shake daily Denice Conte Liquid Rifampin 1 by mouth twice a 60caps Dillon Wayne 03/11/2019 300mg day Denice Bragg Capsules Ventolin HFA 2 puffs by mouth up 8gm Ilda Cyr, 04/27/2018 to four times a day SMALL ARMS REPAIRER 108(90Base) mcg/Act as needed Aerosol Isosorbide 1 by mouth every Unknown Mononitrate ER day 30mg Tablets ER 24HR Hydralazine HCL 1 by mouth three Unknown times a day 25mg Tablets Lisinopril 1 by mouth every Unknown 5mg day Tablets Aspirin 81 1 by mouth every Unknown 81mg day Tablets DR Rios 1 by mouth every 30tabs Ilda Cyr, Calcium day bed time SMALL ARMS REPAIRER 40mg (please deliver) Tablets History Medications Carvedilol 1 tab by mouth I42.9 Unknown 09/12/2019 - 25mg twice a day 09/12/2019 Tablets Lidocaine-Prilocain Apply To The 30gm Lyndsay Umaña MD 08/27/2019 - e Fistula Before 09/12/2019 2.5-2.5% Cream Diaysis Lidocaine-Prilocain Apply To 30gm Lyndsay Umaña MD 08/27/2019 - e Thefistula Before 09/12/2019 2.5-2.5% Cream Each Dialysis Carvedilol Take 2 315tabs I42.9 Qutaybeh S. 05/28/2019 - 12.5mg Denice Sharp 09/13/2019 Tablets Ferrousul 1 tab by mouth 3 45tabs N18.5 Mohammad A. 05/26/2019 - 325(65Fe) times a week MD Smiley 09/12/2019 mg Tablets Immunizations CPT Code Status Date Vaccine Reaction Lot # [id number] Given 07/30/2019 Influenza Virus Vaccine, [id number] Quadrivalent, Split, Preservative Free 18014 Given 10/13/2017 Pneumonia Vaccine no reaction [id number] Vital Signs Date Vital Result Comment 09/13/2019 [...] Test Result H/L Range Note CBC Auto 11/01/2019 [facility] White Blood 5.1 10^3/uL Normal 3.5-10.[address] [place] [address] [phone] Red Blood Count 3.07 10^6/uL Low 3.70-4.87 Hemoglobin 10.3 g/dL Low 12.0-16.0 Hematocrit 30 % Low 35-47 Mean Corpuscular Volume 99 fL High 80-97 Mean Corpuscular Hemoglobin 34 pg High 27-31 Mean Corpuscular HGB Conc 34 g/dL Normal 31-36 Red Cell Distribution Width 14 % Normal 10-15 Platelet Count 173 10^3/uL Normal 150-450 Mean Platelet Volume 7.3 fL Low 7.4-10.4 Abs Neutrophils 2.7 10^3/uL Normal 1.5-7.7 Abs Lymphocytes 1.6 10^3/uL Normal 1.0-4.8 Abs Monocytes 0.6 10^3/uL Normal 0-0.8 Abs Eosinophils 0.1 10^3/uL Normal 0-0.6 Abs Basophils 0.1 10^3/uL Normal 0-0.2 Abs Nucleated RBC 0.0 10^3/uL Granulocyte % 53.4 % Lymphocyte % 31.7 % Monocyte % 11.8 % Eosinophil % 2.1 % Basophil % 1.0 % Nucleated Red Blood Cells % 0.0 Comp Metabolic 11/01/2019 [facility] Sodium 138 mmol/L Normal 135-[address] [place] [address] [phone] Potassium 4.7 mmol/L Normal 3.5-5.0 Chloride 101 mmol/L Normal 101-111 Co2 Carbon Dioxide 28 mmol/L Normal 22-32 Anion Gap 9 mmol/L Normal 2-11 Glucose 95 mg/dL Normal 70-100 Blood Urea Nitrogen 48 mg/dL High 6-24 Creatinine 6.52 mg/dL High 0.51-0.95 BUN/Creatinine Ratio 7.4 Low 8-20 Calcium 9.3 mg/dL Normal 8.6-10.3 Total Protein 6.6 g/dL Normal 6.4-8.9 Albumin 3.8 g/dL Normal 3.2-5.2 Globulin 2.8 g/dL Normal 2-4 Albumin/Globulin Ratio 1.4 Normal 1-3 Total Bilirubin 0.40 mg/dL Normal 0.2-1.0 Alkaline Phosphatase 78 U/L Normal 34-104 Alt 22 U/L Normal 7-52 Ast 20 U/L Normal 13-39 Egfr Non- 6.5 >60 Egfr 7.9 >60 1 Laboratory test 11/01/2019 [facility] Magnesium 2.3 mg/dL Normal 1.9-2.[address] [place] [address] [phone] C Reactive Protein 8.14 mg/L High <8.01 Troponin-I (TnI) 0.01 ng/mL <0.03 2 CBC Auto 10/04/2019 [facility] White Blood 4.3 10^3/uL Normal 3.5-10.[address] [place] [address] [phone] Red Blood Count 3.58 10^6/uL Low 3.70-4.87 Hemoglobin 11.8 g/dL Low 12.0-16.0 Hematocrit 36 % Normal 35-47 Mean Corpuscular Volume 100 fL High 80-97 Mean Corpuscular Hemoglobin 33 pg High 27-31 Mean Corpuscular HGB Conc 33 g/dL Normal 31-36 Red Cell Distribution Width 15 % Normal 10-15 Platelet Count 174 10^3/uL Normal 150-450 Mean Platelet Volume 6.9 fL Low 7.4-10.4 Abs Neutrophils 2.3 10^3/uL Normal 1.5-7.7 Abs Lymphocytes 1.2 10^3/uL Normal 1.0-4.8 Abs Monocytes 0.5 10^3/uL Normal 0-0.8 Abs Eosinophils 0.2 10^3/uL Normal 0-0.6 Abs Basophils 0.1 10^3/uL Normal 0-0.2 Abs Nucleated RBC 0.0 10^3/uL Granulocyte % 54.1 % Lymphocyte % 28.8 % Monocyte % 10.5 % Eosinophil % 4.2 % Basophil % 2.4 % Nucleated Red Blood Cells % 0.0 Comp Metabolic 10/04/2019 [facility] Sodium 137 mmol/L Normal 135-[address] [place] [address] [phone] Potassium 4.8 mmol/L Normal 3.5-5.0 Chloride 104 mmol/L Normal 101-111 Co2 Carbon Dioxide 25 mmol/L Normal 22-32 Anion Gap 8 mmol/L Normal 2-11 Glucose 99 mg/dL Normal 70-100 Blood Urea Nitrogen 56 mg/dL High 6-24 Creatinine 6.19 mg/dL High 0.51-0.95 BUN/Creatinine Ratio 9.0 Normal 8-20 Calcium 9.1 mg/dL Normal 8.6-10.3 Total Protein 6.8 g/dL Normal 6.4-8.9 Albumin 4.0 g/dL Normal 3.2-5.2 Globulin 2.8 g/dL Normal 2-4 Albumin/Globulin Ratio 1.4 Normal 1-3 Total Bilirubin 0.50 mg/dL Normal 0.2-1.0 Alkaline Phosphatase 80 U/L Normal 34-104 Alt 26 U/L Normal 7-52 Ast 24 U/L Normal 13-39 Egfr Non- 6.9 >60 Egfr 8.4 >60 3 Laboratory test 10/04/2019 [facility] Troponin-I (TnI) 0.02 ng/ mL <0.03 [address] [place] [address] [phone] C Reactive Protein 13.84 mg/L High <8.01 B-Type Natriuretic Peptide BNP 115 pg/mL High <=100 CBC Auto 08/31/2019 [facility] White Blood 4.9 10^3/uL Normal 3.5-10.[address] [place] [address] [phone] Red Blood Count 3.48 10^6/uL Low 3.70-4.87 [...] Red Blood Cells % 0.2 Inr/Protime 08/31/2019 [facility] Inr 0.95 Normal 0.82-1.[address] [place] [address] [phone] Laboratory test 08/31/2019 [facility] Partial 40.8 High 26.0- 38.[address] [place] [address] Time PTT [phone] Basic Metabolic 08/31/2019 [facility] Sodium 136 mmol/L Normal 135-[address] [place] [address] [phone] Potassium 3.9 mmol/L Normal 3.5-5.0 Chloride 96 mmol/L Low 101-111 Co2 Carbon Dioxide 31 mmol/L Normal 22-32 Anion Gap 9 mmol/L Normal 2-11 Glucose 85 mg/dL Normal 70-100 Blood Urea Nitrogen 27 mg/dL High 6-24 Creatinine 3.00 mg/dL High 0.51-0.95 BUN/Creatinine Ratio 9.0 Normal 8-20 Calcium 9.2 mg/dL Normal 8.6-10.3 Egfr Non- 16.0 >60 Egfr 19.3 >60 6 Laboratory test 07/30/2019 [facility] Syphillis Igg Negative Negative finding [address] [place] [address] [phone] Liver Function 07/30/2019 [facility] Total Protein 5.6 g/dL Low 6.4-8.[address] [place] [address] [phone] Albumin 3.5 g/dL Normal 3.2-5.2 Globulin 2.1 g/dL Normal 2-4 Albumin/Globulin Ratio 1.7 Normal 1-3 Total Bilirubin 0.30 mg/dL Normal 0.2-1.0 Direct Bilirubin 0.10 mg/dL Normal 0.03-0.18 Indirect Bilirubin 0.2 mg/dL Low 0.3-1.0 Alkaline Phosphatase 89 U/L Normal 34-104 Alt 23 U/L Normal 7-52 Ast 18 U/L Normal 13-39 Urine Culture And 07/09/2019 [facility] Urine Culture SEE RESULT [address] [place] [address] [phone] Urinalysis Profile 07/09/2019 [facility] Urine Color Yellow [address] [place] [address] [phone] Urine Appearance Cloudy Urine Specific [place] 1.008 Low 1.010-1.030 Urine pH 7.0 Normal [...] Cell Present Abnormal Absent Neph Routine 07/09/2019 [facility] Total Protein Random 58 mg/ dL [address] [place] [address] [phone] Creatinine Random Urine 63.06 mg/dL Quantiferon-TB 07/09/2019 [facility] QuantiferonTb Positive Abnormal Negative [address] [place] [address] Result [phone] TB1 Ag minus Nil Result 2.23 IU/mL TB2 Ag minus Nil Result 1.87 IU/mL Mitogen minus Nil Result 13.83 IU/mL Nil Result 0.05 IU/mL Laboratory test 07/09/2019 [facility] Hemoglobin A1c 5.6 % Normal 4.0-5.[address] (Glyco HGB) [place] [address] [phone] Hepatitis B Surface Ag Nonreactive Nonreactive Hepatitis B Priya AB Titer Not Immune Abnormal Immune Hepatitis B Core AB Igm Nonreactive Nonreactive Pthi 07/09/2019 [facility] PTH Intact 948.9 pg/mL High 12-[address] [place] [address] [phone] Calcium (PTH Intact) 7.8 mg/dL Low 8.6-10.3 Laboratory test 07/09/2019 [facility] Ferritin 8.4 ng/mL Low 11-[address] [place] [address] [phone] Iron & Iron 07/09/2019 [facility] Iron 87 g/dL Normal 50- 212 Binding Capacity [address] [place] [address] [phone] Unsaturated Iron Binding < 278 g/dL Total Iron Binding Capacity 293 g/dL Normal 250-450 Transferrin 209 mg/dL Normal 203-362 % Iron Saturation 30 % Normal 15-55 Laboratory test 07/09/2019 [facility] Phosphorus 3.8 mg/dL Normal 2.5-5.0 finding [address] [place] [address] [phone] Albumin 3.6 g/dL Normal 3.2-5.2 Basic Metabolic 07/09/2019 [facility] Sodium 141 mmol/L Normal 135-145 Panel [address] [place] [address] [phone] Potassium 5.4 mmol/L High 3.5-5.0 Chloride 113 mmol/L High 101-111 Co2 Carbon Dioxide 21 mmol/L Low 22-32 Anion Gap 7 mmol/L Normal 2-11 Glucose 89 mg/dL Normal 70-100 Blood Urea Nitrogen 64 mg/dL High 6-24 Creatinine 4.77 mg/dL High 0.51-0.95 BUN/Creatinine Ratio 13.4 Normal 8-20 Calcium 8.0 mg/dL Low 8.6-10.3 Egfr Non- 9.4 >60 Egfr 11.3 >60 10 CBC Auto 07/09/2019 [facility] White Blood 3.4 10^3/uL Low 3.5 -10.8 Diff [address] [facility] [place] [address] [phone] Red Blood Count 2.64 10^6/uL Low 3.70-4.87 [...] Red Blood Cells % 0.1 Pthi 06/30/2019 [facility] PTH Intact 1277.5 pg/mL High 12-88 [address] [place] [address] [phone] Calcium (PTH Intact) 7.3 mg/dL Low 8.6-10.3 Laboratory test 06/30/2019 [facility] Phosphorus 4.9 mg/dL Normal 2.5-5.0 finding [address] [place] [address] [phone] Albumin 3.7 g/dL Normal 3.2-5.2 Basic Metabolic 06/30/2019 [facility] Sodium 142 mmol/L Normal 135-145 Panel [address] [place] [address] [phone] Potassium 5.4 mmol/L High 3.5-5.0 Chloride 116 mmol/L High 101-111 Co2 Carbon Dioxide 19 mmol/L Low 22-32 Anion Gap 7 mmol/L Normal 2-11 Glucose 108 mg/dL High 70-100 Blood Urea Nitrogen 67 mg/dL High 6-24 Creatinine 4.72 mg/dL High 0.51-0.95 BUN/Creatinine Ratio 14.2 Normal 8-20 Calcium 7.2 mg/dL Low 8.6-10.3 Egfr Non- 9.5 >60 Egfr 11.5 >60 11 CBC Auto 06/30/2019 [facility] White Blood 3.3 10^3/uL Low 3.5 -10.[address] [place] [address] [phone] Red Blood Count 2.73 10^6/uL Low 3.70-4.87 [...] Blood Cells % 0.1 Liver Function 06/30/2019 [facility] Total Protein 6.0 g/dL Low 6.4-8.9 Panel [address] [place] [address] [phone] Albumin 3.6 g/dL Normal 3.2-5.2 Globulin 2.4 g/dL Normal 2-4 Albumin/Globulin Ratio 1.5 Normal 1-3 Total Bilirubin 0.40 mg/dL Normal 0.2-1.0 Direct Bilirubin 0.10 mg/dL Normal 0.03-0.18 Indirect Bilirubin 0.3 mg/dL Normal 0.3-1.0 Alkaline Phosphatase 98 U/L Normal 34-104 Alt 16 U/L Normal 7-52 Ast 17 U/L Normal 13-39 Urine Culture And 06/30/2019 [facility] Urine Culture SEE RESULT [address] [place] [address] [phone] Urinalysis Profile 06/30/2019 [facility] Urine Color Yellow [address] [place] [address] [phone] Urine Appearance Cloudy Urine Specific [place] 1.008 Low 1.010-1.030 Urine pH 6.0 Normal [...] Bacteria 2+ Abnormal Absent Neph Routine 06/30/2019 [facility] Total Protein Random 57 mg/ dL [address] [place] [address] [phone] Creatinine Random Urine 62.75 mg/dL Hemoglobin/Hematocrit 06/08/2019 [facility] Hemoglobin 8.7 Low 12.0-16.[address] g/[place] [address] [phone] Hematocrit 26 % Low 35-47 CBC Auto 05/11/2019 [facility] White Blood 3.3 10^3/uL Low 3.5 -10.[address] [place] [address] [phone] Red Blood Count 2.82 10^6/uL Low 3.70-4.87 [...] % Nucleated Red Blood Cells % 0.0 Comp Metabolic 05/11/2019 [facility] Sodium 140 mmol/L Normal 135-[address] [place] [address] [phone] Potassium 5.0 mmol/L Normal 3.5-5.0 Chloride 115 [...] Egfr Non- 9.5 >60 Egfr 11.5 >60 13 Urine Culture And 05/11/2019 [facility] Urine Culture SEE RESULT [address] [place] [address] [phone] Laboratory test 05/11/2019 [facility] Transferrin <pending> finding [address] [place] [address] [phone] Urinalysis Profile 05/11/2019 [facility] Urine Color Yellow [address] [place] [address] [phone] Urine Appearance Cloudy Urine Specific [place] 1.009 Low 1.010-1.030 Urine pH 6.0 Normal [...] Cell Present Abnormal Absent Neph Routine 05/11/2019 [facility] Total Protein Random 70 mg/ dL [address] [place] [address] [phone] Creatinine Random Urine 68.90 mg/dL Total Protein 05/11/2019 [facility] Urine Total 990 High 0- [address] Protein/24HR mg/24Hr [place], [place] [phone] Creatinine 05/11/2019 [facility] Urine 895.68 Normal 600-1800 24HR Urine [address] Creatinine/24 mg/24[place]r [place] [address] Hour [phone] Urine Collection Time 24 hr Urine Total Volume 1800 mL Iron & Iron Binding 05/11/2019 [facility] Iron 47 g/dL Low 50-[address] [place], [place] [address] [phone] Unsaturated Iron Binding < 265 g/dL Total Iron Binding Capacity 280 g/dL Normal 250-450 Transferrin 200 mg/dL Low 203-362 % Iron Saturation 17 % Normal 15-55 Lipid Profile 05/11/2019 [facility] Triglycerides 67 mg/dL 15 (Trig/Chol/HDL) [address] [place] [address] [phone] Cholesterol 161 mg/dL 16 HDL Cholesterol 70.1 mg/dL 17 LDL Cholesterol 78 mg/dL 18 Lipid Panel - 05/11/2019 [facility] Creatine 94 U/L Normal 10- [address] Kinase(CK) [place] [address] [phone] 1 Because ethnic data is not always readily [...] 15-29 5 Kidney failure <15 (or dialysis) 2 Troponin-I testing on Plasma Separator Tubes (PST) has a known false positive rate of 0.20-0.40%. All positive troponins reflex immediately to secondary confirmatory testing. Using the Prescreen 800 Access Immunoassay systems, the 99th percentile upper reference limit was demonstrated to be < 0.03 ng/mL. 3 Because ethnic data is not always readily [...] 15-29 5 Kidney failure <15 (or dialysis) 4 Troponin-I testing on Plasma Separator Tubes (PST) has a known false positive rate of 0.20-0.40%. All positive troponins reflex immediately to secondary confirmatory testing. Using the [employer] DxI 800 Access Immunoassay systems, the 99th percentile upper reference limit was demonstrated to be < 0.03 ng/mL. 5 Standard intensity warfarin therapeutic range: 2.0-3.0 High intensity warfarin therapeutic range: 2.5-3.5 6 Because ethnic data is not always [...] 5 Kidney failure <15 (or dialysis) 7 SEE RESULT BELOW Name: COLLEEN MARQUEZ : [address]: Radu Reis MD Acct: [id number] Unit: [id number] AGE: 59 Location: LAB Re07/09/19 SEX: F Status: REG REF SPEC: [id number] SUNSHINE: 07/09/19-[address]: Radu Reis MD REQ: [id number] RECD: 07/09/19 STATUS: COMP OT DR: Betty Bueno MD _ SOURCE: URINE SPDESC: ORDERED: Urine Culture Procedure Result Reported Site Urine Culture Final 07/13/19- 1155 ML Organism 1 ESCHERICHIA COLI [place] Count >100,000 (Many) CFU/ML 1. ESCHERICHIA COLI [...] . END OF REPORT DEPARTMENT OF PATHOLOGY, [address] [place] [address] Elier Casanova M.D. Director [facility] # [id number] 8 M. tuberculosis infection likely 9 Therapeutic target for the treatment of diabetes mellitus patients is <7% HBA1C, and in selective patients <6.0%. Please refer to [place] [employer] diabetic care guidelines for further information. 10 Because ethnic data is not always readily [...] 15-29 5 Kidney failure <15 (or dialysis) 11 Because ethnic data is not always readily [...] 15-29 5 Kidney failure <15 (or dialysis) 12 SEE RESULT BELOW Name: COLLEEN MARQUEZ : [address]: Radu Reis MD Acct: [id number] Unit: [id number] AGE: 59 Location: LAB Re06/30/19 SEX: F Status: REG REF SPEC: [id number] SUNSHINE: 06/30/19 [facility] DR: Radu Reis MD REQ: [id number] RECD: 06/30/19 STATUS: GERMAINE LEAHY DR: Betty Bueno MD _ SOURCE: URINE SPDESC: ORDERED: Urine Culture Procedure Result Reported Site Urine Culture Final 07/03/19- 19 ML Organism 1 ESCHERICHIA COLI [place] Count >100,000 (Many) CFU/ML 1. ESCHERICHIA COLI [...] . END OF REPORT DEPARTMENT OF PATHOLOGY, [address] [place] [address] Elier Casanova M.D. Director [facility] # [id number] 13 Because ethnic data is not always readily [...] 15-29 5 Kidney failure <15 (or dialysis) 14 SEE RESULT BELOW Name: COLLEEN MARQUEZ : [address]: Dillon Bragg MD Acct: [id number] Unit: [id number] AGE: 59 Location: LAB Re05/11/19 SEX: F Status: REG REF SPEC: [id number] SUNSHINE: 05/11/19-1037 [facility] DR: Janell Clemens MD REQ: [id number] RECD: 05/11/19 STATUS: GERMAINE LEAHY DR: Ilda Bueno MD _ SOURCE: URINE SPDESC: ORDERED: Urine Culture Procedure Result Reported Site Urine Culture Final 05/13/19- 0841 ML Organism 1 ESCHERICHIA COLI [place] Count >100,000 (Many) CFU/ML 1. ESCHERICHIA COLI [...] . END OF REPORT DEPARTMENT OF PATHOLOGY, [address] [place] [address] Elier Casanova M.D. Director [facility] # [id number] 15 Desirable: <150 Borderline High: 150-199 High: 200-499 Very High: >500 16 Desirable: <200 Borderline High: 200-239 High: >239 17 Low: <40 Desirable: 40-60 High: >60 18 Desirable: <100 Near Optimal: 100-129 Borderline High: 130-159 High: 160-189 Very High: >189 Procedures Date Code Description Status 11/02/2019 64315 [facility] 20Yrs 4/More Vfwi-Nw-Jdja Visits Per Completed Month 10/02/2019 29493 [facility] 20Yrs 4/More Zppm-Cy-Qsml Visits Per Completed Month 09/03/2019 34386 [facility] 20Yrs 4/More Ruhd-Ps-Ypkk Visits Per Completed Month 08/31/2019 81696 Dialysis Circuit W/ Transluminal Balloon Angioplasty, Completed Peripheral 07/30/2019 56276 EKG Tracing & Interpretation Completed 05/28/2019 27855 EKG Tracing & Interpretation Completed 04/13/2019 [id number] Colonoscopy Completed 03/16/2019 [id number] Mammogram Completed 01/15/2018 [id number] Colonoscopy Completed 03/26/2017 [id number] Mammogram Completed Medical Devices Description No Information Available Encounters Type Date Location Provider Dx Diagnosis Office Visit 09/13/2019 [facility] Ilda Cyr NP N18.6 End stage renal 3:00p disease I42.9 Cardiomyopathy, unspecified 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 I34.0 Nonrheumatic mitral (valve) insufficiency Office Visit 08/02/2019 10:40a [facility] Nephrology Radu Villanueva8.5 Chronic kidney MD Smiley disease, stage 5 D63.1 Anemia in chronic kidney disease E87.5 Hyperkalemia E78.5 Hyperlipidemia, unspecified I73.9 Peripheral vascular disease, unspecified Office Visit 07/30/2019 9:00a [facility] Internal Rosanna Melgar, N18.5 Chronic kidney Medicine - Allison Galdamez, FACP disease, stage 5 D63.1 Anemia in chronic kidney disease I73.9 Peripheral vascular disease, unspecified Z72.0 Tobacco use I42.9 Cardiomyopathy, unspecified R63.4 Abnormal weight loss Z23 Encounter for immunization Z00.00 Encntr for general adult medical exam w/o abnormal findings Office Visit 06/30/2019 1:30p [facility] Nephrology Radu Villanueva8.5 Chronic kidney MD Smiley disease, stage 5 E87.5 Hyperkalemia D63.1 Anemia in chronic kidney disease E78.5 Hyperlipidemia, unspecified Office Visit 06/08/2019 10:10a [facility] Valentine Wayne 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 N18.5 Chronic kidney disease, stage 5 Office Visit 05/28/2019 [facility] Ilda I42.9 Cardiomyopathy, 3:30p Cardiology FÉLIX Cyr unspecified I27.20 Pulmonary hypertension, unspecified E78.5 Hyperlipidemia, unspecified N18.5 Chronic kidney disease, stage 5 I34.0 Nonrheumatic mitral (valve) insufficiency Office Visit 05/26/2019 8:30a [facility] Nephrology Radu Villanueva8.5 Chronic kidney MD Smiley disease, stage 5 E87.5 Hyperkalemia E78.5 Hyperlipidemia, unspecified I27.20 Pulmonary hypertension, unspecified I42.9 Cardiomyopathy, unspecified D63.1 Anemia in chronic kidney disease Assessments Date Code Description Provider 11/02/2019 N18.6 End stage renal disease Radu Reis MD 10/02/2019 N18.6 End stage renal disease Radu Reis MD 09/13/2019 N18.6 End stage renal disease Ilda [...] 07/30/2019 D63.1 Anemia in chronic kidney disease Rosanna Melgar M.D., FACP 07/30/2019 I73.9 Peripheral vascular disease, Rosanna Melgar M.D., FACP unspecified 07/30/2019 Z72.0 Tobacco use Rosanna Melgar M.D., FACP 07/30/2019 I42.9 Cardiomyopathy, unspecified Rosanna Melgar M.D., FACP 07/30/2019 R63.4 Abnormal weight loss Rosanna Melgar M.D., FACP 07/30/2019 Z23 Encounter for immunization Rosanna Melgar M.D., [facility] 07/30/2019 Z00.00 Encounter for general adult medical Rosanna Melgar M.D., [facility] examination without abnormal findings 06/30/2019 N18.5 Chronic [...] M.D. [EKG] 05/28/2019 I42.9 Cardiomyopathy, unspecified Ilda Thuman, SMALL ARMS REPAIRER 05/28/2019 I27.20 Pulmonary hypertension, unspecified Ilda Thuman, SMALL ARMS REPAIRER 05/28/2019 E78.5 Hyperlipidemia, unspecified Ilda Thuman, SMALL ARMS REPAIRER 05/28/2019 N18.5 Chronic kidney disease, stage 5 Ilda Thuman, SMALL ARMS REPAIRER 05/28/2019 I34.0 Nonrheumatic mitral (valve) Ilda Cyr, SMALL ARMS REPAIRER insufficiency 05/26/2019 N18.5 Chronic kidney disease, stage 5 Radu Reis MD 05/26/2019 E87.5 Hyperkalemia Radu Reis MD 05/26/2019 E78.5 Hyperlipidemia, unspecified Radu Reis MD 05/26/2019 I27.20 Pulmonary hypertension, unspecified Radu Reis MD 05/26/2019 I42.9 Cardiomyopathy, kathyified Radu Reis MD 05/26/2019 D63.1 Anemia in chronic kidney disease Radu Reis MD Plan of Treatment Future Appointment(s):01/28/2020 10:40 am - Betty Bueno MD at [facility] Internal Medicine - Ccmob09/13/2019 - Ilda Cyr, NPN18.6 End stage renal [id number] Cardiomyopathy, unspecifiedNew Medication:Carvedilol 25 mg - 1 tab by mouth twice a dayFollow up:follow up with Dr. Sharp in 1.5 months.I06.1 Rheumatic aortic [id number] Nonrheumatic mitral (valve) insufficiency Functional Status Description No Information Available Mental Status Description No Information Available Referrals Refer to Dr Reason for Referral Status Appt Date Gary Brewster MD PD Catheter Placement Referral Created [address] [facility] [address] [phone] Dillon Bragg MD Positive Quantiferon. Starting HD soon. CXR Sent is ordered. [address] [place] [address] [place] [address] [phone] Bob Rubin MD Sent [address] [facility] [address] [place] [address] [phone]
[2019-11-05] MEDS ORDERED: Tetan/Diph/Pertus SYR(Tdap)* 0.5 ML SYR(BOOSTRIX) use SYR contains LATEX IM ONE (12:25)
[2019-11-05 12:45] VITALS: BP 100/58
== END 2019-11-05 12:43 | disposition home or self-care (01) ==
LOC: ED 11:50
DX: S61.412A Laceration without foreign body of left hand, initial encounter (principal); F41.9 Anxiety disorder, unspecified; W26.0XXA Contact with knife, initial encounter; Y93.G3 Activity, cooking and baking; Y92.9 Unspecified place or not applicable; Z79.82 Long term (current) use of aspirin; Z79.899 Other long term (current) drug therapy; E03.9 Hypothyroidism, unspecified; F17.210 Nicotine dependence, cigarettes, uncomplicated
CPT/HCPCS: 90471; 99282

== ENCOUNTER → 2019-11-18 10:29 | Day surgery (SDC) | payer OTHER ==
[~2019-11-18 10:29] MED LIST changes: -Buffered Lidocaine 1% SYRIN* 1 ML/SYRINGE INTRADERM ONE; -Bupivacaine 0.25% W/EPI* 10 ML SDV ONE; +Clindamycin 600 MG/D5W BAG(*) 600 MG/50 ML BAG IV ONE; -Dexamethasone TAB* 4 MG ONE; -Dexamethasone TAB* 4 MG PO ONE; -DiMENhydriNATE IV* 50 MG/ML VIAL IV PUSH PRN; -Famotidine IV* 10 MG/ML 2 ML (20 mg) IV ONE; -Famotidine IV* 10 MG/ML 2 ML (20 mg) ONE; -Heparin VIAL(*) 5000 UNITS/ML VIAL (FIVE THOUSAND) ONE; +Iodixanol 320 (CONTRAST) 100 ML SDV ONE; -KETAMINE HCL* 50 MG/ML 10 ML VIAL ONE; -Lidocaine 2% PF * 5 ML VIAL ONE; -Morphine 4 MG/ML VIAL (1 ml) 4 MG/ML VIAL IV PRN; -NS 0.45% 1000 ML BAG* 1,000 ML IV SCH; -Naloxone* 0.4 MG/ML 1 ML VIAL IV PRN; -Norepinephrine VIAL* 1 MG/ML 4 ML VIAL ONE; -Ondansetron ODT TAB* 4 MG ONE; -Ondansetron ODT TAB* 4 MG PO ONE; -PROCHLORPERAZINE INJ 5 MG/ML 2 ML VIAL IV PRN; -Phenylephrine 10 MG/ML VIAL* 1 ML VIAL ONE; -Propofol* 10 MG/ML 20 ML BTL ONE; -Scopolamine 1.5 mg* PATCH TRANSDERM PRN; -Scopolamine PATCH Remove* 1 NOTE MISC PATCH OFF ONE; -ceFAZolin 2 GM in NS PREMIX(*) 2 GM/100 ML BAG IVPB ONE; -fentaNYL* 50 MCG/ML 2 ML VIAL (100 MCG VIAL) IV PRN; -oxyCODONE/Acetamin 5/325 MG* TAB ONE; -oxyCODONE/Acetamin 5/325 MG* TAB PO PRN
--- NOTE | 2019-11-18 12:30 | OP ---
Operative Report - Blank - Operative Report Date of Operation: 11/18/19 Note: Right AVF Angiogram Procedure Note: Performed by: Dr. Mery Reis, [facility] Nephrology Procedure date: 11/18/2019 Brachio-Basilic AVF Angiogram Central Venogram Percutaneous balloon angioplasty of AVF stenosis with radiology supervision and interpretation by me Diagnosis: Body of AVF severe stenosis Procedure Note: Consent was obtained via Spray Gun Striper, in chart. Patient understands risks, benefits, alternatives and wants to proceed. Following strict hand hygiene and standard sterile precautions, a full sterile attire for myself and all personnel involved in the procedure, including a gown , cap, face mask with an eye shield, and double sterile gloves. The procedure started with 2 ID time out after marking the AVF. Patient was put in supine position. Right UE and Chest were prepped with 2% Chlorhexidine, and the surgical field was surrounded by sterile surgical towels. A sterile full body drape was placed to cover the patient from head to toe. Rt AVF was accessed by a 21-G micro puncture needle, then a 0.018 micro wire was threaded through the 21-G needle towards the outflow, and the 21-G needle was pulled out, leaving the micro wire in, then a 4-Fr sheath and inner stylet were passed over the micro wire into the vein. Both, the micro wire and the inner stylet were removed and the 4-Fr sheath was kept in place. Confirmed using Fluoro. Then, a 0.035 inch floppy tip Hydrophilic wire, was passed through the 4-Fr sheath into the central circulation, confirmed by Fluoro in the IVC. The 4-Fr sheath was exchanged for 6-Fr sheath and dilator, and the dilator was removed. Contrast based images were obtained from the AV anastomosis to the Rt Atrium and including cine loop & 5-Fr Kumpe Diagnostic Catheter was used to obtain a Central Venogram. Rt UE AVF Brachio-Basilic AVF: Outflow through Rt Basilic V. Body of the AVF: 1 lesion in outflow of AVF, probably swing point of transposed AVF. 70-80% stenosis, overlies the humerus Central circulation: No lesions Balloon angioplasty was performed for the above mentioned lesion using 7 mm x 4 cm Conquest Balloon. Balloon was inflated slowly to Nominal Pressure, then to 22 ATMS for 120 seconds. After angioplasty, lesions improved to <30% residual stenosis with no evidence of immediate nor late recoil. Retrograde Arteriogram of the Brachial Radial Artery wasn't done as this is a high flow AVF. Cannulation site was repaired using 3-0 Proline in a Z-stitch fashion and the 6- Fr sheath was removed and the stitch tightened. Stitch will be removed after 30 min Procedure was considered Complete. Complications: None Estimated Bleeding: < 5cc *Radiation safety: 1)Fluoro Time: 3.8 Minutes 2)Radiation Exposure: 181 mGy *ABx: Clindamycin 600 mg IVPB pre Op. *Medications: 1)IV Contrast: 35 cc Vesipaue 2)Fentanyl: 50 Mcg 3)Versed: 0.5 mg
[2019-11-18 12:32] VITALS: BP 172/98
== END | disposition home or self-care (01) ==
LOC: CHICATH 10:29
PROVIDERS: ATTEND Internal Medicine Nephrology
DX: T82.858A Stenosis of other vascular prosthetic devices, implants and grafts, initial encounter (principal); T82.838A Hemorrhage due to vascular prosthetic devices, implants and grafts, initial encounter; N18.6 End stage renal disease; I12.9 Hypertensive chronic kidney disease with stage 1 through stage 4 chronic kidney disease, or unspecified chronic kidney disease; E78.5 Hyperlipidemia, unspecified; Z99.2 Dependence on renal dialysis
CPT/HCPCS: 36901; 36902; 76937; 99156; 99157; C1725; C1887; J1644; J2250; J3010

== ENCOUNTER 2019-11-27 15:09 | Emergency (ER) | payer OTHER ==
[2019-11-27] MEDS ORDERED: Ondansetron INJ* 2 MG/ML VIAL IV ONE (15:28)
[2019-11-27] MEDS ORDERED: Morphine 4 MG/ML VIAL (1 ml) 4 MG/ML VIAL IV ONE (15:28)
[2019-11-27] MEDS ORDERED: NS 0.9% 1000 ML** 1,000 ML IV ONE (15:28)
--- NOTE | 2019-11-27 15:32 | ED ---
HPI Chest Pain - HPI Summary HPI Summary: 59 y/o female presented to [facility] for CP present for 3-4 days. Pt went into cardiac arrest 4 days ago and was given CPR at [place]. She believes they then replaced her aortic valve. Pt was discharged yesterday from the hospital but was still in pain and could not sleep due to the pain. She notes pain is in right chest and right abdomen. Denies nausea, dizziness, and SOB. She states she is on dialysis and could not finish her course due to the pain. Sx aggravated by coughing. Pt was not given pain medication upon discharge from [place]. She took 4 Tylenol tabs today and she states the pain is still severe. Hx ok HTN controlled by Plavix. No allergies to medications. Pt spoke only R[place] and was interpreted by Dr. Shorty Odonnell and Rosemarie Samayoa. - History of Current Complaint Chief Complaint: EDChestPainROMI Hx Obtained From: Patient, EMS, Shank Paperer - Rosemarie Santana Onset/Duration: Started Days Ago, Still Present Timing: Lasting Days Current Severity: Severe Pain Intensity: 8 Pain Scale Used: 0-10 Numeric Chest Pain Location: Right Anterior Aggravating Factor(s): Nothing Alleviating Factor(s): Medication - ineffective Associated Signs and Symptoms: Positive: Abdominal Pain. Negative: Dizziness, Nausea - Additional Pertinent History Primary Care Physician: [id number] - Allergy/Home Medications Allergies/Adverse Reactions: Allergies Allergy/AdvReac Type Severity Reaction Status Date / Time No Known Allergies Allergy Verified 11/01/19 13:33 Home Medications: Home Medications Aspirin EC TAB* [Ecotrin EC Low Dose 81 MG*] 81 mg PO DAILY 03/29/19 [History Confirmed 11/18/19] Carvedilol [Coreg] 25 tab PO BID 08/30/19 [History Confirmed 11/18/19] Hydralazine HCl 25 mg PO TID 08/31/19 [History Confirmed 11/18/19] Atorvastatin* [Lipitor*] 40 mg PO BEDTIME 10/04/19 [History Confirmed 11/18/19] Isosorbide Mononitrate ER TAB* [Imdur ER TAB*] 30 mg PO DAILY 10/04/19 [History Confirmed 11/18/19] Lisinopril TAB* [Prinivil TAB*] 5 mg PO DAILY 10/04/19 [History Confirmed ] Albuterol HFA INHALER* [Ventolin HFA Inhaler*] 2 puff INH QID PRN 11/01/19 [ History Confirmed 11/18/19] Calcitriol CAP* [Rocaltrol CAP*] 0.25 mcg PO MOWEFR 11/01/19 [History Confirmed 11/18/19] Calcium Acetate CAP* [Phoslo CAP*] 667 mg PO TID WITH MEALS 11/01/19 [History Confirmed 11/18/19] Lactose-Reduced Food [Ensure Original] 237 ml PO TID 11/01/19 [History Confirmed 11/18/19] RiFAMPin CAP* 300 mg PO BID 11/01/19 [History Confirmed 11/18/19] Sodium Polystyrene Sulfon/Sorb [Kionex] 15 gm PO ONCE 11/01/19 [History Confirmed 11/18/19] Lidocaine PATCH 5%* [Lidoderm 5% Patch*] 1 patch TRANSDERM DAILY #14 patch 11/26 [Rx] oxyCODONE/Acetamin 5/325 MG* [Percocet 5/325 TAB*] 1 tab PO Q6H PRN #15 tab MDD 4 11/27/19 [Rx] PMH/Surg Hx/FS Hx/Imm Hx Endocrine/Hematology History: Reports: Hx Thyroid Disease - Simple Goiter-per Dr Sharp, Hx Anemia Denies: Hx Diabetes Cardiovascular History: Reports: Hx Cardiomegaly - Per H&P Dr Lange, Hx Congestive Heart Failure - Non ischemic cardiomyopathy/CHF, Per H&P Dr Sharp, Hx Hypercholesterolemia, Hx Hypertension - on medication, Hx Peripheral Vascular Disease - Intermittent claudication per H&PDr Crane, Hx Valvular Heart Disease - Mild to mod aortic insufficiency, mild mitral insufficiency-Dr Lange, Other Cardiovascular Problems/Disorders - High cholesterol Denies: Hx Angina, Hx Coronary Artery Disease, Hx Myocardial Infarction, Hx Pacemaker/ICD Respiratory History: Reports: Hx Asthma - prn albuterol, Hx Chronic Obstructive Pulmonary Disease (COPD), Other Respiratory Problems/Disorders - Current smoker GI History: Denies: Other GI Disorders History: Reports: Other Problems/Disorders - hx of UTI Musculoskeletal History: Reports: Other Musculoskeletal History - history of back pain near right hip area Sensory History: Denies: Hx Cataracts, Hx Contacts or Glasses, Hx Hearing Aid Opthamlomology History: Denies: Hx Cataracts, Hx Contacts or Glasses Neurological History: Denies: Other Neuro Impairments/Disorders Psychiatric History: Reports: Hx Anxiety - regarding surgery - Surgical History Surgery Procedure, Year, and Place: right arm AV fistula Hx Anesthesia Reactions: No Infectious Disease History: No Infectious Disease History: Denies: Hx Clostridium Difficile, Hx Hepatitis, Hx Human Immunodeficiency Virus (HIV), Hx of Known/Suspected MRSA, Hx Shingles, Hx Tuberculosis, History Other Infectious Disease, Traveled Outside the [place] in Last 30 Days - Family History Known Family History: Positive: Cardiac Disease, Hypertension, Diabetes, Non- Contributory - Social History Alcohol Use: Weekly Alcohol Amount: 5 drinks a week Hx Substance Use: No Substance Use Type: Reports: None Hx Tobacco Use: Yes Smoking Status (MU): Light Every Day Tobacco Smoker Type: Cigarettes Amount Used/How Often: 2 cigarettes per day X 45 YEARS Have You Smoked in the Last Year: Yes Review of Systems Positive: Chest Pain Negative: Shortness Of Breath Positive: Abdominal Pain. Negative: Nausea Neurological/Mental Status: Other - negative - dizziness All Other Systems Reviewed And Are Negative: Yes Physical Exam - Summary Physical Exam Summary: Constitutional: Well-developed, Well-nourished, Alert. (-) Distressed Skin: Warm, Dry HENT: Normocephalic; Atraumatic Eyes: Conjunctiva normal Neck: Musculoskeletal ROM normal neck. (-) JVD, (-) Stridor, (-) Tracheal deviation Cardio: Rhythm regular, rate normal, Heart sounds normal; Intact distal pulses; The pedal pulses are 2+ and symmetric. Radial pulses are 2+ and symmetric. (-) Murmur Pulmonary/Chest wall: Effort normal. (-) Respiratory distress, (-) Wheezes, (-) Rales. Tender to palpation over right chest wall. Abd: Soft, (-) tenderness, (-) Distension, (-) Guarding, (-) Rebound Musculoskeletal: (-) Edema Lymph: (-) Cervical adenopathy Neuro: Alert, Oriented x3 Psych: Mood and affect Normal Triage Information Reviewed: Yes Vital Signs On Initial Exam: Initial Vitals Temp Pulse Resp BP Pulse Ox 97.6 F 74 18 147/100 99 11/27/19 15:11 11/27/19 15:11 11/27/19 15:11 11/27/19 15:11 11/27/19 15:11 Vital Signs Reviewed: Yes Procedures - Sedation Patient Received Moderate/Deep Sedation with Procedure: No Diagnostics - Vital Signs Vital Signs Temp Pulse Resp BP Pulse Ox 11/27/19 15:11 97.6 F 74 18 147/100 99 - Laboratory Result Diagrams: 11/27/19 15:36 11/27/19 15:36 Lab Statement: Any lab studies that have been ordered have been reviewed, and results considered in the medical decision making process. - CT Chest CT Interpretation Completed By: Radiologist Summary of CT Findings: IMPRESSION: 1. RIGHT-SIDED RIB FRACTURES. NO PNEUMOTHORAX. 2. MINIMAL AIRSPACE DISEASE OF THE RIGHT LUNG APEX.. This report was reviewed by Dr. Hodge. - EKG 1520 Cardiac Rate: NL EKG Rhythm: Sinus Rhythm ST Segment: Normal Summary of EKG Findings: EKG at 1520 shows NSR at 68bpm. No STEMI. This EKG was reviewed and interpreted by Dr. Hodge. Chest Pain Course/Dx - Course Course Of Treatment: 59 y/o female presented to [facility] for CP present for 3-4 days. Pt went into cardiac arrest 4 days ago and was given CPR at [place]. She believes they then replaced her mitral valve. Pt was discharged yesterday from the hospital but was still in pain and could not sleep due to the pain. She notes pain is in right chest and right abdomen. Denies nausea, dizziness, and SOB. She states she is on dialysis and could not finish her course due to the pain. Sx aggravated by coughing. Pt was not given pain medication upon discharge from [place]. She took 4 Tylenol tabs today and she states the pain is still severe. Hx ok HTN controlled by Plavix. No allergies to medications. Pt spoke only R[place] and was interpreted by Dr. Shorty Odonnell. Exam showed right chest wall tender to palpation. Labs showed RBC 3.60, MCH 34, RDW 16, Plt 76, ads monos 0.9, Cl 96, creatinine 3.59, BUN/creatinine ration 5.6, and Troponin I 0.24. EKG at 1520 shows NSR at 68bpm. No STEMI. CT chest showed 1. RIGHT-SIDED RIB FRACTURES. NO PNEUMOTHORAX. 2. MINIMAL AIRSPACE DISEASE OF THE RIGHT LUNG APEX. Pt was given 1 patch Lidoderm, 4mg IV Morphine, and 4mg IV Zofran. Pt was diagnosed with rib fractures; prescribed Lidoderm and PO oxycodone; and discharged to home. - Diagnoses Provider Diagnoses: Rib fractures - Critical Care Time Critical Care Statement: Critical care time is provided exclusive of any time spent performing procedures. Discharge ED - Sign-Out/Discharge Documenting (check all that apply): Patient Departure - dc - Discharge Plan Condition: Stable Disposition: HOME Prescriptions: Lidocaine PATCH 5%* [Lidoderm 5% Patch*] 1 patch TRANSDERM DAILY #14 patch oxyCODONE/Acetamin 5/325 MG* [Percocet 5/325 TAB*] 1 tab PO Q6H PRN #15 tab MDD 4 PRN Reason: Pain - Severe Patient Education Materials: Rib Fracture (ED) Referrals: Betty Bueno MD [Primary Care Provider] - Additional Instructions: Follow up with your primary care provider in 2-3 days. If you experience new or worsening symptoms please return to the ER. - Billing Disposition and Condition Condition: STABLE Disposition: Home - Attestation Statements Document Initiated by Chandan: Yes Documenting Scribe: Christiano Cohen Provider For Whom Chandan is Documenting (Include Credential): Laron Hodge DO Scribe Attestation: Christiano Bryant scribed for Laron Hodge DO on 11/27/19 at 1856. Scribe Documentation Reviewed: Yes Provider Attestation: The documentation as recorded by the [email or web address] accurately reflects the service I personally performed and the decisions made by Laron morocho DO Status of Scribromy Document: Viewed
[2019-11-27 15:49] LABS: Hematocrit 35 % (35-47); Hemoglobin 12.1 g/dL (12.0-16.0); Mean Corpuscular HGB Conc 35 g/dL (31-36); Mean Corpuscular Hemoglobin 34 pg (27-31); Mean Corpuscular Volume 97 fL (80-97); Red Cell Distribution Width 16 % (10-15); White Blood Count 8.1 10^3/uL (3.5-10.8)
[2019-11-27 15:57] LABS: Activated Partial Thrombo Time 32.6 seconds (26.0-38.0); INR 0.97 (0.82-1.09)
--- OUTSIDE RECORDS SUMMARY | 2019-11-27 16:00 | XMS REPORT | Continuity of Care Document ---
:1960 External Reference #:[id number] Author Name Radu Reis MD (transmitted by agent of provider Yue Cardenas) Address [address] [place] [address] Care Team Providers Name Role Phone [facility] - Gynecology Care Team Information Stationary Fireman Josiah Florentino MD - Gastroenterology Care Team Information Stationary Fireman Lelo Sharp MD [facility] - Care Team Information Stationary Fireman [phone] Cardiovascular Disease Shaq Miller MD - Dermatology Care Team Information Stationary Fireman [phone] Janell Clemens MD - Nephrology Care Team Information Stationary Fireman [phone] Betty Bueno M.D. - Family Medicine Care Team Information Stationary Fireman Problems Active Problems Provider Date Congestive heart [...] Carvedilol 1 tab by mouth 60tabs I42.9 [facility], 09/13/2019 25mg twice a day [employer] Tablets Calcitriol 1 by mouth every 30caps N18.5 Mohammad A. 06/30/2019 0.25mcg other day, friday, MD Smiley Capsules friday and friday Calcium Acetate 1 capsule by mouth 180caps N18.5 [facility] 06/30/2019 (Phos Binder) three times daily MD Smiley 667mg after meals Capsules Kionex take 60 ml/15 g 1200ml [facility] A. 05/04/2019 15GM/60ML once as needed for MD Smiley Suspension hyperkalemia Ensure Original 1 can three times 90units R63.0 Ashley 03/30/2019 Nutrition Shake daily Denice Conte Liquid Rifampin 1 by mouth twice a 60caps Dillon DMaida 03/11/2019 300mg day Denice Yanez Capsules Ventolin HFA 2 puffs by mouth up 8gm [facility], 04/27/2018 to four times a day [employer] 108(90Base) mcg/Act as needed Aerosol Atorvastatin 1 by mouth every 30tabs [facility], Calcium day bed time [employer]ER 40mg (please deliver) Tablets Aspirin 81 1 by mouth every Unknown 81mg day Tablets DR Duran 1 by mouth every Unknown 5mg day Tablets Hydralazine HCL 1 by mouth three Unknown times a day 25mg Tablets Isosorbide 1 by mouth every Unknown Mononitrate ER day 30mg Tablets ER 24HR History Medications Carvedilol 1 tab by mouth [...] 05/28/2019 - 12.5mg Denice Sharp 09/13/2019 Tablets Immunizations CPT Code Status Date Vaccine Reaction Lot # [id number] Given 07/30/2019 Influenza Virus Vaccine, [id number] Quadrivalent, Split, Preservative Free [id number] Given 10/13/2017 Pneumonia Vaccine no reaction [id number] Vital Signs Date Vital Result Comment 09/13/2019 [...] Result H/L Range Note CBC Auto 11/01/2019 [facility] White Blood 5.1 10^3/uL Normal 3.5-10.[address] [place], [place] [id number] [phone] Red Blood Count 3.07 10^6/uL Low 3.70-4.87 [...] Blood Cells % 0.0 Comp Metabolic 11/01/2019 [facility] Sodium 138 mmol/L Normal 135-[address] [place] [address] [phone] Potassium 4.7 mmol/L Normal 3.5-5.0 Chloride 101 [...] Egfr 7.9 >60 1 Laboratory test 11/01/2019 [facility] Magnesium 2.3 mg/dL Normal 1.9-2.[address] [place] [address] [phone] C Reactive Protein 8.14 mg/L High <8.01 Troponin-I (TnI) 0.01 ng/mL <0.03 2 CBC Auto 10/04/2019 [facility] White Blood 4.3 10^3/uL Normal 3.5-10.[address] [place] [address] [phone] Red Blood Count 3.58 10^6/uL Low 3.70-4.87 [...] Blood Cells % 0.0 Comp Metabolic 10/04/2019 [facility] Sodium 137 mmol/L Normal 135-[address] [place] [address] [phone] Potassium 4.8 mmol/L Normal 3.5-5.0 Chloride 104 [...] Egfr 8.4 >60 3 Laboratory test 10/04/2019 [facility] Troponin-I (TnI) 0.02 ng/ mL <0.03 [address] [place] [address] [phone] C Reactive Protein 13.84 mg/L High <8.01 B-Type Natriuretic Peptide BNP 115 pg/mL High <=100 CBC Auto 08/31/2019 [facility] White Blood 4.9 10^3/uL Normal 3.5-10.[address] [place] [address] [phone] Red Blood Count 3.48 10^6/uL Low 3.70-4.87 [...] Red Blood Cells % 0.2 Inr/Protime 08/31/2019 [facility] Inr 0.95 Normal 0.82-1.[address] [place] [address] [phone] Laboratory test 08/31/2019 [facility] Partial 40.8 High 26.0- 38.[address] [address] Time PTT [phone] Basic Metabolic 08/31/2019 [facility] Sodium 136 mmol/L Normal 135-145 Panel [address] [place] [address] [phone] Potassium 3.9 mmol/L Normal 3.5-5.0 Chloride 96 mmol/L Low 101-111 Co2 Carbon Dioxide 31 mmol/L Normal 22-32 Anion Gap 9 mmol/L Normal 2-11 Glucose 85 mg/dL Normal 70-100 Blood Urea Nitrogen 27 mg/dL High 6-24 Creatinine 3.00 mg/dL High 0.51-0.95 BUN/Creatinine Ratio 9.0 Normal 8-20 Calcium 9.2 mg/dL Normal 8.6-10.3 Egfr Non- 16.0 >60 Egfr 19.3 >60 6 Laboratory test 07/30/2019 [facility] Syphillis Igg Negative Negative finding [address] W/[place] [address] [phone] Liver Function 07/30/2019 [facility] Total Protein 5.6 g/dL Low 6.4-8.9 Panel [address] [place] [address] [phone] Albumin 3.5 g/dL Normal 3.2-5.2 Globulin 2.1 g/dL Normal 2-4 Albumin/Globulin Ratio 1.7 Normal 1-3 Total Bilirubin 0.30 mg/dL Normal 0.2-1.0 Direct Bilirubin 0.10 mg/dL Normal 0.03-0.18 Indirect Bilirubin 0.2 mg/dL Low 0.3-1.0 Alkaline Phosphatase 89 U/L Normal 34-104 Alt 23 U/L Normal 7-52 Ast 18 U/L Normal 13-39 Urine Culture And 07/09/2019 [facility] Urine Culture SEE RESULT [address] [place], [place] [id number] [phone] Urinalysis Profile 07/09/2019 [facility] Urine Color Yellow [address] [place] [address] [phone] Urine Appearance Cloudy Urine Specific [place] 1.008 Low 1.010-1.030 Urine pH 7.0 Normal [...] Cell Present Abnormal Absent Neph Routine 07/09/2019 [facility] Total Protein Random 58 mg/ dL 101 [facility] [place] [address] [phone] Creatinine Random Urine 63.06 mg/dL Quantiferon-TB 07/09/2019 [facility] QuantiferonTb Positive Abnormal Negative 8 Gold Plus [address] [facility] [place] [address] Result [phone] TB1 Ag minus Nil Result 2.23 IU/mL TB2 Ag minus Nil Result 1.87 IU/mL Mitogen minus Nil Result 13.83 IU/mL Nil Result 0.05 IU/mL Laboratory test 07/09/2019 [facility] Hemoglobin A1c 5.6 % Normal 4.0-5.6 9 finding [address] [facility] (Glyco HGB) [place] [address] [phone] Hepatitis B Surface Ag Nonreactive Nonreactive Hepatitis B Priya AB Titer Not Immune Abnormal Immune Hepatitis B Core AB Igm Nonreactive Nonreactive Pthi 07/09/2019 [facility] PTH Intact 948.9 pg/mL High 12-88 [address] [place] [address] [phone] Calcium (PTH Intact) 7.8 mg/dL Low 8.6-10.3 Laboratory test 07/09/2019 [facility] Ferritin 8.4 ng/mL Low 11-307 finding [address] [place], [place] [address] [phone] Iron & Iron 07/09/2019 [facility] Iron 87 g/dL Normal 50- 212 Binding Capacity [address] [place] [address] [phone] Unsaturated Iron Binding < 278 g/dL Total Iron Binding Capacity 293 g/dL Normal 250-450 Transferrin 209 mg/dL Normal 203-362 % Iron Saturation 30 % Normal 15-55 Laboratory test 07/09/2019 [facility] Phosphorus 3.8 mg/dL Normal 2.5-5.0 finding [address] [place] [address] [phone] Albumin 3.6 g/dL Normal 3.2-5.2 Basic Metabolic 07/09/2019 [facility] Sodium 141 mmol/L Normal 135-145 Panel [address] [place] [address] [phone] Potassium 5.4 mmol/L High 3.5-5.0 Chloride 113 mmol/L High 101-111 Co2 Carbon Dioxide 21 mmol/L Low 22-32 Anion Gap 7 mmol/L Normal 2-11 Glucose 89 mg/dL Normal 70-100 Blood Urea Nitrogen 64 mg/dL High 6-24 Creatinine 4.77 mg/dL High 0.51-0.95 BUN/Creatinine Ratio 13.4 Normal 8-20 Calcium 8.0 mg/dL Low 8.6-10.3 Egfr Non- 9.4 >60 Egfr 11.3 >60 10 CBC Auto 07/09/2019 [facility] White Blood 3.4 10^3/uL Low 3.5 -10.[address] [place] [address] [phone] Red Blood Count 2.64 10^6/uL Low 3.70-4.87 [...] Red Blood Cells % 0.1 Pthi 06/30/2019 [facility] PTH Intact 1277.5 pg/mL High 12-[address] [place] [address] [phone] Calcium (PTH Intact) 7.3 mg/dL Low 8.6-10.3 Laboratory test 06/30/2019 [facility] Phosphorus 4.9 mg/dL Normal 2.5-5.[address] [place] [address] [phone] Albumin 3.7 g/dL Normal 3.2-5.2 Basic Metabolic 06/30/2019 [facility] Sodium 142 mmol/L Normal 135-[address] [place] [address] [phone] Potassium 5.4 mmol/L High 3.5-5.0 Chloride 116 mmol/L High 101-111 Co2 Carbon Dioxide 19 mmol/L Low 22-32 Anion Gap 7 mmol/L Normal 2-11 Glucose 108 mg/dL High 70-100 Blood Urea Nitrogen 67 mg/dL High 6-24 Creatinine 4.72 mg/dL High 0.51-0.95 BUN/Creatinine Ratio 14.2 Normal 8-20 Calcium 7.2 mg/dL Low 8.6-10.3 Egfr Non- 9.5 >60 Egfr 11.5 >60 11 CBC Auto 06/30/2019 [facility] White Blood 3.3 10^3/uL Low 3.5 -10.[address] [place] [address] [phone] Red Blood Count 2.73 10^6/uL Low 3.70-4.87 [...] Blood Cells % 0.1 Liver Function 06/30/2019 [facility] Total Protein 6.0 g/dL Low 6.4-8.[address] [place] [address] [phone] Albumin 3.6 g/dL Normal 3.2-5.2 Globulin 2.4 g/dL Normal 2-4 Albumin/Globulin Ratio 1.5 Normal 1-3 Total Bilirubin 0.40 mg/dL Normal 0.2-1.0 Direct Bilirubin 0.10 mg/dL Normal 0.03-0.18 Indirect Bilirubin 0.3 mg/dL Normal 0.3-1.0 Alkaline Phosphatase 98 U/L Normal 34-104 Alt 16 U/L Normal 7-52 Ast 17 U/L Normal 13-39 Urine Culture And 06/30/2019 [facility] Urine Culture SEE RESULT [address] [place] [address] [phone] Urinalysis Profile 06/30/2019 [facility] Urine Color Yellow [address] [place] [address] [phone] Urine Appearance Cloudy Urine Specific [place] 1.008 Low 1.010-1.030 Urine pH 6.0 Normal [...] Bacteria 2+ Abnormal Absent Neph Routine 06/30/2019 [facility] Total Protein Random 57 mg/ dL [address] [place] [address] [phone] Creatinine Random Urine 62.75 mg/dL Hemoglobin/Hematocrit 06/08/2019 [facility] Hemoglobin 8.7 Low 12.0-16.[address] g/[place] [address] [phone] Hematocrit 26 % Low 35-47 1 Because ethnic data is not always [...] immediately to secondary confirmatory testing. Using the [employer] DxI 800 Access Immunoassay systems, the 99th [...] immediately to secondary confirmatory testing. Using the [employer] DxI 800 Access Immunoassay systems, the 99th [...] 7 SEE RESULT BELOW Name: COLLEEN MARQUEZ Marci : [address]: Radu Reis MD Acct: [id number] Unit: [id number] AGE: 59 Location: LAB Re07/09/19 SEX: F Status: REG REF SPEC: [id number] SUNSHINE: 07/09/19-[address]: Radu Reis MD REQ: [id number] RECD: 07/09/19 STATUS: GERMAINE LEAHY DR: Betty Bueno MD _ SOURCE: URINE [facility]: ORDERED: Urine Culture Procedure Result Reported Site Urine Culture Final 07/13/19- 1155 ML Organism 1 ESCHERICHIA COLI [place] Count >100,000 (Many) CFU/ML 1. ESCHERICHIA COLI [...] . END OF REPORT DEPARTMENT OF PATHOLOGY, [address] [place] [address] Elier Casanova M.D. Director [facility] # [id number] 8 M. tuberculosis infection likely 9 Therapeutic target for the treatment of diabetes mellitus patients is <7% HBA1C, and in selective patients <6.0%. Please refer to [place] [employer] diabetic care guidelines for further [...] [address]: Radu Reis MD Acct: [id number] Unit: [id number] AGE: 59 Location: LAB Re06/30/19 SEX: F Status: REG REF SPEC: [id number] SUNSHINE: 06/30/[address]: Radu Reis MD REQ: [id number] RECD: 06/30/19 STATUS: COMP OTHR DR: Betty Bueno MD _ SOURCE: URINE SPDESC: ORDERED: Urine Culture Procedure Result Reported Site Urine Culture Final 07/03/19- 08 ML Organism 1 ESCHERICHIA COLI [place] Count >100,000 (Many) CFU/ML 1. ESCHERICHIA COLI [...] . END OF REPORT DEPARTMENT OF PATHOLOGY, [address] [place] [address] Elier Casanova M.D. Director [facility] # [id number] Procedures Date Code Description Status 11/18/2019 54095 Moderate Sedation Services; Same Phys Intl 15 Mins; PT Completed >= 5 Years 11/18/2019 65960 Dialysis Circuit W/ Transluminal Balloon Angioplasty, Completed Peripheral 11/02/2019 09092 [facility] 20Yrs 4/More Hchl-Oq-Fdwo Visits Per Completed Month 10/02/2019 94890 [facility] 20Yrs 4/More Kqsv-Ti-Iswl Visits Per Completed Month 09/03/2019 46974 [facility] 20Yrs 4/More Gctv-Zy-Wvuo Visits Per Completed Month 08/31/2019 02490 Dialysis Circuit W/ Transluminal Balloon Angioplasty, Completed Peripheral 07/30/2019 83068 EKG Tracing & Interpretation Completed 05/28/2019 21231 EKG Tracing & Interpretation Completed 04/13/2019 61986053 Colonoscopy Completed 03/16/2019 [id number] Mammogram Completed 01/15/2018 53653812 Colonoscopy Completed 03/26/2017 [id number] Mammogram Completed Medical Devices Description No Information Available Encounters Type Date Location Provider Dx Diagnosis Office Visit 09/13/2019 [facility] Ilda Cyr NP N18.6 End stage renal 3:00p disease I42.9 Cardiomyopathy, unspecified 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 I34.0 Nonrheumatic mitral (valve) insufficiency Office Visit 08/02/2019 10:40a [facility] Nephrology Radu Lozano N18.5 Chronic kidney MD Smiley disease, stage 5 D63.1 Anemia in chronic kidney disease E87.5 Hyperkalemia E78.5 Hyperlipidemia, unspecified I73.9 Peripheral vascular disease, unspecified Office Visit 07/30/2019 9:00a [facility] Internal Rosannaalexa Melgar, N18.5 Chronic kidney Medicine - Allison Galdamez, FACP disease, stage 5 D63.1 Anemia in chronic kidney disease I73.9 Peripheral vascular disease, unspecified Z72.0 Tobacco use I42.9 Cardiomyopathy, unspecified R63.4 Abnormal weight loss Z23 Encounter for immunization Z00.00 Encntr for general adult medical exam w/o abnormal findings Office Visit 06/30/2019 1:30p [facility] Nephrology Radu Lozano N18.5 Chronic kidney MD Smiley disease, stage 5 E87.5 Hyperkalemia D63.1 Anemia in chronic kidney disease E78.5 Hyperlipidemia, unspecified Office Visit 06/08/2019 10:10a [place] Valentine Wayne Z22.7 Latent For Infectious Denice Yanez tuberculosis Diseases N18.5 Chronic kidney disease, stage 5 Office Visit 05/28/2019 [place] Ilda I42.9 Cardiomyopathy, 3:30p Cardiology FÉLIX Cyr unspecified I27.20 Pulmonary hypertension, unspecified E78.5 Hyperlipidemia, unspecified N18.5 Chronic kidney disease, stage 5 I34.0 Nonrheumatic mitral (valve) insufficiency Assessments Date Code Description Provider 11/18/2019 T82.858A Stenosis of other vascular prosthetic Radu Reis MD devices, implants and grafts, initial encounter 11/18/2019 Z99.2 Dependence on renal dialysis Radu Reis MD 11/02/2019 N18.6 End stage renal disease Radu Reis MD 10/02/2019 N18.6 End stage renal disease Radu Reis MD 09/13/2019 N18.6 End stage renal disease Ilda Cyr NP 09/13/2019 I42.9 Cardiomyopathy, unspecified Ilda Cyr NP 09/13/2019 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 Ilda Cyr NP 09/13/2019 I34.0 Nonrheumatic mitral (valve) Ilda Cyr, FÉLIX insufficiency 09/03/2019 Z99.2 Dependence on renal dialysis [...] Z23 Encounter for immunization Rosanna Melgar M.D., FACP 07/30/2019 Z00.00 Encounter for general adult medical Rosanna Melgar M.D., [facility] examination without abnormal findings 06/30/2019 N18.5 Chronic kidney disease, stage 5 Radu Reis MD 06/30/2019 E87.5 Hyperkalemia Radu Reis MD 06/30/2019 D63.1 Anemia in chronic kidney disease Radu Reis MD 06/30/2019 E78.5 Hyperlipidemia, unspecified Radu Reis MD 06/08/2019 Z22.7 Latent tuberculosis Dillon Yanez M.D. 06/08/2019 N18.5 Chronic kidney disease, stage 5 Dillon Yanez M.D. 05/28/2019 R94.31 Abnormal electrocardiogram [ECG] Lelo Sharp M.D. [EKG] 05/28/2019 I42.9 Cardiomyopathy, unspecified Ilda Cyr, [employer] 05/28/2019 I27.20 Pulmonary hypertension, unspecified Ilda Thuman, [employer] 05/28/2019 E78.5 Hyperlipidemia, unspecified Ilda Thuman, [employer] 05/28/2019 N18.5 Chronic kidney disease, stage 5 Ilda Cyr, [employer] 05/28/2019 I34.0 Nonrheumatic mitral (valve) Ilda Cyr NP insufficiency Plan of Treatment Future Appointment(s):01/28/2020 10:40 am - Betty Bueno MD at [facility] Internal Medicine - [facility]/05/2020 - Ilda Cyr NPN18.6 End stage renal aknivppK75.9 Cardiomyopathy, unspecifiedNew Medication:Carvedilol 25 mg - 1 tab by mouth twice a dayFollow up:follow up with Dr. Sharp in 1.5 months.I06.1 Rheumatic aortic zxvdfbyhjdnkjF94.0 Nonrheumatic mitral (valve) insufficiency Functional Status Description No Information Available Mental Status Description No Information Available Referrals Refer to Dr Reason for Referral Status Appt Date Gary Brewster MD PD Catheter Placement Referral Closed [address] [facility] [address] [phone] Dillon Yanez MD Positive Quantiferon. Starting HD soon. CXR Sent is ordered. [address] [place] [address] [place] [address] [phone] Bob Rubin MD Sent [address] [place] [phone]
[2019-11-27 16:06] LABS: ALT 21 U/L (7-52); AST 56 U/L (13-39); Albumin 4.2 g/dL (3.2-5.2); Albumin/Globulin Ratio 1.4 (1-3); Alkaline Phosphatase 79 U/L (34-104); Anion Gap 9 mmol/L (2-11); BUN/Creatinine Ratio 5.6 (8-20); Blood Urea Nitrogen 20 mg/dL (6-24); CO2 Carbon Dioxide 30 mmol/L (22-32); Calcium 8.8 mg/dL (8.6-10.3); Chloride 96 mmol/L (101-111); EGFR African American 15.7 (>60); Glucose 90 mg/dL (70-100); Magnesium 1.9 mg/dL (1.9-2.7); Potassium 3.7 mmol/L (3.5-5.0); Sodium 135 mmol/L (135-145); Total Protein 7.2 g/dL (6.4-8.9)
[2019-11-27 16:18] LABS: Troponin I 0.24 ng/mL (<0.03)
[2019-11-27 16:22] LABS: ABS Eosinophils 0.1 10^3/ul (0-0.6); ABS Lymphocytes 1.7 10^3/ul (1.0-4.8); ABS Monocytes 0.9 10^3/ul (0-0.8); ABS Neutrophils 5.3 10^3/ul (1.5-7.7); Lymphocyte % 21.1 %; Mean Platelet Volume 7.6 fL (7.4-10.4); Nucleated Red Blood Cells % 0.1; Platelet Count 76 10^3/uL (150-450)
[2019-11-27] MEDS ORDERED: Lidocaine PATCH 5%* 1 PATCH TRANSDERM ONE (16:46)
[2019-11-27 17:52] LABS: Troponin I 0.22 ng/mL (<0.03)
[2019-11-27 18:24] VITALS: BP 160/68
[2019-11-27] MEDS ORDERED: Lidocaine Patch REMOVE* 1 NOTE MISC SCH (21:00)
== END 2019-11-27 18:15 | disposition home or self-care (01) ==
LOC: ED 15:09
DX: S22.41XA Multiple fractures of ribs, right side, initial encounter for closed fracture (principal); F17.210 Nicotine dependence, cigarettes, uncomplicated; E04.1 Nontoxic single thyroid nodule; I51.7 Cardiomegaly; I50.9 Heart failure, unspecified; E78.00 Pure hypercholesterolemia, unspecified; I10 Essential (primary) hypertension; I73.9 Peripheral vascular disease, unspecified; J45.909 Unspecified asthma, uncomplicated; J44.9 Chronic obstructive pulmonary disease, unspecified; Z79.82 Long term (current) use of aspirin; Z86.74 Personal history of sudden cardiac arrest; Z99.2 Dependence on renal dialysis; Z79.02 Long term (current) use of antithrombotics/antiplatelets; Z95.4 Presence of other heart-valve replacement; X58.XXXA Exposure to other specified factors, initial encounter; Y92.9 Unspecified place or not applicable
CPT/HCPCS: 36415; 71250; 80053; 83735; 84484; 85025; 85060; 85610; 85730; 93005; 96361; 96374; 96375; 99283; A9270-GY; J2270; J2405

== ENCOUNTER 2024-06-14 13:09 | Inpatient (IN) ==
[2024-06-14] MEDS: Albuterol/Ipratropium NEB.SOL (2.5/0.5 MG) 3 ML NEB.SOLN INH ONE ×4 (13:36→22:37)
[2024-06-14] MEDS: methylPREDNISolone SOD SUCC 125 mg 2 ML VIAL IV ONE (17:50)
[2024-06-14 18:56] LABS: Hematocrit 38.3 % (35-45); Hemoglobin 12.2 g/dL (11.5-14.3); Mean Corpuscular Hemoglobin 29.8 pg (27-33); Mean Corpuscular Hgb Conc 31.9 g/dL (31-36); Mean Corpuscular Volume 93.2 fL (80-97); Red Blood Count 4.11 10^6/uL (3.63-4.92); Red Cell Distribution Width 19.2 % (12-17); White Blood Count 9.9 10^3/uL (3.8-11.8)
[2024-06-14 20:19] LABS: ABS Basophils 0.2 10^3/uL (0.0-0.1); ABS Eosinophils 1.7 10^3/uL (0.0-0.5); ABS Lymphocytes 1.9 10^3/uL (1.0-4.8); ABS Monocytes 0.9 10^3/uL (0.0-0.9); ABS Neutrophils 5.3 10^3/uL (1.5-7.6); Eosinophil % 16.7 %; Lymphocyte % 19.2 %; Mean Platelet Volume 8.1 fL (7.5-11.2); Platelet Count 95 10^3/uL (150-450)
[2024-06-14 20:23] LABS: Albumin 4.6 g/dL (3.2-5.2); Albumin/Globulin Ratio 1.8 (1-3); Calcium 8.3 mg/dL (8.6-10.3); Creatinine, Serum 11.63 mg/dL (0.51-0.95); Globulin 2.5 g/dL (2-4); Potassium 4.5 mmol/L (3.5-5.0); Total Bilirubin 0.5 mg/dL (0.2-1.0); Total Protein 7.1 g/dL (6.4-8.9); eGFR CKD-EPI 3.3 (>60)
[2024-06-14 20:30] LABS: Anisocytosis 1+; Hypochromasia 1+
[2024-06-14 22:08] LABS: INR 1.03 (0.85-1.14)
[2024-06-14] MEDS: Albuterol 2.5mg/3 ml (0.083%) NEB.SOLN INH ONE (22:23)
[2024-06-14 22:27] LABS: High Sensitivity Troponin 1 Hr 64 pg/mL (<15)
[2024-06-14 22:39] LABS: Magnesium 2.6 mg/dL (1.9-2.7)
[2024-06-15] MEDS: Ondansetron 4 mg VIAL 2 MG/ML 2 ml VIAL IV ONE (00:39)
[2024-06-15] MEDS ORDERED: Albuterol HFA INHALER 8 gm MDI INH PRN (01:10)
[2024-06-15 01:29] LABS: C Reactive Protein 15.26 mg/L (<8.01)
[2024-06-15 04:38] LABS: Activated Partial Thrombo Time 37.2 seconds (26.0-38.0); INR 1.04 (0.85-1.14)
[2024-06-15 04:39] LABS: ABS Lymphocytes 0.4 10^3/uL (1.0-4.8); ABS Monocytes 0.1 10^3/uL (0.0-0.9); ABS Nucleated RBC 0.01 10^3/ul; Eosinophil % 0.1 %; Hematocrit 35.3 % (35-45); Hemoglobin 11.2 g/dL (11.5-14.3); Lymphocyte % 6.5 %; Mean Corpuscular Hemoglobin 29.7 pg (27-33); Mean Corpuscular Hgb Conc 31.8 g/dL (31-36); Mean Corpuscular Volume 93.3 fL (80-97); Nucleated Red Blood Cells % 0.1 %/100WBC (0.0-0.8); Platelet Count 84 10^3/uL (150-450); Red Blood Count 3.79 10^6/uL (3.63-4.92); Red Cell Distribution Width 18.9 % (12-17); White Blood Count 6.5 10^3/uL (3.8-11.8)
[2024-06-15] MEDS: Heparin 5000 UNITS/ML 1 mL VIAL SUBCUT SCH (05:19)
[2024-06-15 05:20] LABS: Creatinine, Serum 12.08 mg/dL (0.51-0.95); Potassium 4.6 mmol/L (3.5-5.0); eGFR CKD-EPI 3.2 (>60)
[2024-06-15] MEDS ORDERED: NF: BUDESONIDE/GLYCOPYR/FORMOTEROL MDI (NF) INH SCH (07:00)
[2024-06-15] MEDS ORDERED: NS 0.9% 1000 ml BAG 200 ML IV PRN (09:02)
[2024-06-15] MEDS ORDERED: NS 0.9% 1000 ml BAG 100 ML IV PRN (09:02)
[2024-06-15] MEDS ORDERED: Albumin Human 25% 25 GM/100 ML BTL IV PRN (09:02)
[2024-06-15] MEDS: Albuterol/Ipratropium NEB.SOL (2.5/0.5 MG) 3 ML NEB.SOLN INH PRN (10:50)
[2024-06-15] MEDS: NF: BUDESONIDE/GLYCOPYR/FORMOTEROL MDI (NF) INH SCH (12:16)
[2024-06-15 12:24] LABS: Hepatitis B Surface Antigen Nonreactive (Nonreactive)
[2024-06-15] MEDS: Heparin 1,000 UNIT/ML 10 ml (10,000 UNITS) CATHLAB/DIALYSIS DIALYSIS PRN (13:30)
[2024-06-15] MEDS ORDERED: Pentafluoroprop/Tetrafluoro 1 SPRAY TOP.SPRAY TOPICAL PRN (14:48)
[2024-06-15 16:37] LABS: Hepatitis B Surface Ab Not Immune (Immune)
[2024-06-16 08:59] LABS: Anion Gap 12 mmol/L (2-16); Blood Urea Nitrogen 44 mg/dL (6-24); CO2 Carbon Dioxide 25 mmol/L (22-32); Calcium 7.6 mg/dL (8.6-10.3); Chloride 99 mmol/L (101-111); Glucose 99 mg/dL (70-100); Sodium 136 mmol/L (135-145); eGFR CKD-EPI 5.9 (>60)
[2024-06-16 10:57] LABS: ABS Basophils 0.1 10^3/uL (0.0-0.1); ABS Eosinophils 0.1 10^3/uL (0.0-0.5); ABS Lymphocytes 1.7 10^3/uL (1.0-4.8); ABS Monocytes 0.8 10^3/uL (0.0-0.9); Eosinophil % 1.7 %; Hematocrit 37.4 % (35-45); Hemoglobin 12.3 g/dL (11.5-14.3); Lymphocyte % 19.2 %; Mean Corpuscular Hemoglobin 30.1 pg (27-33); Mean Corpuscular Hgb Conc 32.9 g/dL (31-36); Mean Corpuscular Volume 91.5 fL (80-97); Mean Platelet Volume 8.4 fL (7.5-11.2); Platelet Count 105 10^3/uL (150-450); Red Blood Count 4.08 10^6/uL (3.63-4.92); Red Cell Distribution Width 18.2 % (12-17); White Blood Count 8.7 10^3/uL (3.8-11.8)
[2024-06-16 12:17] LABS: Phosphorus 2.3 mg/dL (2.5-5.0); Potassium Redraw 3.1 mmol/L (3.5-5.0)
[2024-06-17 06:48] LABS: Creatinine, Serum 6.15 mg/dL (0.51-0.95); Magnesium 1.8 mg/dL (1.9-2.7); Potassium 4.3 mmol/L (3.5-5.0); eGFR CKD-EPI 7.1 (>60)
[2024-06-17 07:20] LABS: Hematocrit 37.7 % (35-45); Hemoglobin 12.2 g/dL (11.5-14.3); Mean Corpuscular Hemoglobin 30.3 pg (27-33); Mean Corpuscular Hgb Conc 32.3 g/dL (31-36); Mean Corpuscular Volume 93.7 fL (80-97); Red Blood Count 4.02 10^6/uL (3.63-4.92); Red Cell Distribution Width 18.4 % (12-17); White Blood Count 9.1 10^3/uL (3.8-11.8)
[2024-06-17 07:21] LABS: ABS Lymphocytes 1.6 10^3/uL (1.0-4.8); ABS Monocytes 0.8 10^3/uL (0.0-0.9); ABS Neutrophils 6.8 10^3/uL (1.5-7.6); Eosinophil % 0.1 %; Lymphocyte % 17.2 %; Mean Platelet Volume 8.4 fL (7.5-11.2); Platelet Count 87 10^3/uL (150-450)
[2024-06-17] MEDS: Mometasone/Formoter 100/5 MDI INH SCH (08:00)
[2024-06-17] MEDS: Magnesium Sulfate 2 gm BAG 2 GM/50 ML BAG IVPB ONE (08:15)
[2024-06-17 12:47] VITALS: BP 0/0
== END 2024-06-17 13:15 | disposition home or self-care (01) | DRG 190 ==
LOC: ED 13:09 → EDHOLD 13:09 → OBSVTOIN 06-15 01:02 → SUATTDRO 06-15 01:02 → MED 06-15 02:33
PROVIDERS: ADMIT Internal Medicine; ATTEND Student in an Organized Health Care Education/Training Program

== ENCOUNTER 2024-07-14 09:51 | Inpatient (IN) ==
[2024-07-14 10:48] LABS: Hematocrit 35.9 % (35-45); Hemoglobin 11.7 g/dL (11.5-14.3); Mean Corpuscular Hemoglobin 30.1 pg (27-33); Mean Corpuscular Hgb Conc 32.6 g/dL (31-36); Mean Corpuscular Volume 92.2 fL (80-97); Red Blood Count 3.89 10^6/uL (3.63-4.92); Red Cell Distribution Width 19.7 % (12-17); White Blood Count 7.2 10^3/uL (3.8-11.8)
[2024-07-14 10:54] LABS: INR 0.97 (0.85-1.14)
[2024-07-14 11:08] LABS: High Sens Troponin Baseline 607 pg/mL (<15)
[2024-07-14 11:54] LABS: ABS Basophils 0.1 10^3/uL (0.0-0.1); ABS Eosinophils 0.1 10^3/uL (0.0-0.5); ABS Lymphocytes 1.6 10^3/uL (1.0-4.8); ABS Monocytes 1.1 10^3/uL (0.0-0.9); ABS Neutrophils 4.3 10^3/uL (1.5-7.6); ABS Nucleated RBC 0.02 10^3/ul; Eosinophil % 1.4 %; Lymphocyte % 22.6 %; Mean Platelet Volume 8.1 fL (7.5-11.2); Nucleated Red Blood Cells % 0.2 %/100WBC (0.0-0.8); Platelet Count 74 10^3/uL (150-450)
[2024-07-14 12:12] LABS: High Sensitivity Troponin 1 Hr 602 pg/mL (<15)
[2024-07-14 12:20] LABS: ALT 13 U/L (7-52); Albumin 4.2 g/dL (3.2-5.2); Albumin/Globulin Ratio 1.9 (1-3); Alkaline Phosphatase 215 U/L (35-149); Anion Gap 10 mmol/L (2-16); Blood Urea Nitrogen 23 mg/dL (6-24); CO2 Carbon Dioxide 36 mmol/L (22-32); Chloride 92 mmol/L (101-111); Creatinine, Serum 4.87 mg/dL (0.51-0.95); Globulin 2.2 g/dL (2-4); Glucose 74 mg/dL (70-100); Sodium 138 mmol/L (135-145); Total Bilirubin 1.3 mg/dL (0.2-1.0); Total Protein 6.4 g/dL (6.4-8.9); eGFR CKD-EPI 9.4 (>60)
[2024-07-14] MEDS: Nitro 2% OINT (Nitroglycerin) 1 INCH/PAK TOPICAL ONE (13:12)
[2024-07-14] MEDS: Iodixanol 320 (CONTRAST) 100 ML SDV IV ONE (13:31)
[2024-07-14] MEDS: Heparin DRIP 25,000 UNITS BAG 25,000 UNITS/250 ML BAG IV SCH (14:49)
[2024-07-14] MEDS: Heparin 5000 UNITS/ML 1 mL VIAL IV SCH (14:50)
[2024-07-14] MEDS ORDERED: Sulfur Hexaflouride MICROSPHR 25 MG VIAL IV PRN (15:12)
[2024-07-14] MEDS ORDERED: Albuterol HFA INHALER 8 gm MDI INH PRN (15:27)
[2024-07-14] MEDS ORDERED: Albuterol/Ipratropium NEB.SOL (2.5/0.5 MG) 3 ML NEB.SOLN INH PRN (15:27)
[2024-07-14 15:44] LABS: Potassium Redraw 3.4 mmol/L (3.5-5.0)
[2024-07-14 15:45] LABS: Creatinine, Serum 5.98 mg/dL (0.51-0.95); HDL Cholesterol 79.9 mg/dL; eGFR CKD-EPI 7.4 (>60)
[2024-07-14 16:07] LABS: High Sensitivity Troponin 3 Hr 783 pg/mL (<15)
[2024-07-14 16:08] LABS: ABS Basophils 0.1 10^3/uL (0.0-0.1); ABS Eosinophils 0.1 10^3/uL (0.0-0.5); ABS Lymphocytes 1.4 10^3/uL (1.0-4.8); ABS Neutrophils 5.5 10^3/uL (1.5-7.6); ABS Nucleated RBC 0.01 10^3/ul; Anisocytosis 1+; Eosinophil % 1.3 %; Hematocrit 33.9 % (35-45); Hemoglobin 11.2 g/dL (11.5-14.3); Mean Corpuscular Hemoglobin 30.6 pg (27-33); Mean Corpuscular Volume 92.5 fL (80-97); Mean Platelet Volume 7.9 fL (7.5-11.2); Nucleated Red Blood Cells % 0.1 %/100WBC (0.0-0.8); Platelet Count 77 10^3/uL (150-450); Polychromasia 1+; Red Blood Count 3.67 10^6/uL (3.63-4.92); Red Cell Distribution Width 19.7 % (12-17); White Blood Count 8.1 10^3/uL (3.8-11.8)
[2024-07-14] MEDS: BUDESONIDE/GLYCOPYR/FORMOTEROL MDI (NF) INH SCH (22:33)
[2024-07-15 06:50] LABS: ABS Basophils 0.1 10^3/uL (0.0-0.1); ABS Eosinophils 0.2 10^3/uL (0.0-0.5); ABS Lymphocytes 1.8 10^3/uL (1.0-4.8); ABS Monocytes 0.7 10^3/uL (0.0-0.9); ABS Neutrophils 3.5 10^3/uL (1.5-7.6); ABS Nucleated RBC 0.02 10^3/ul; Eosinophil % 2.8 %; Hematocrit 35.5 % (35-45); Hemoglobin 11.7 g/dL (11.5-14.3); Lymphocyte % 28.7 %; Mean Corpuscular Hemoglobin 30.7 pg (27-33); Mean Corpuscular Hgb Conc 32.9 g/dL (31-36); Mean Corpuscular Volume 93.3 fL (80-97); Mean Platelet Volume 8.2 fL (7.5-11.2); Nucleated Red Blood Cells % 0.3 %/100WBC (0.0-0.8); Platelet Count 93 10^3/uL (150-450); Red Cell Distribution Width 20.5 % (12-17); White Blood Count 6.1 10^3/uL (3.8-11.8)
[2024-07-15 07:24] LABS: Creatinine, Serum 7.17 mg/dL (0.51-0.95); Magnesium 2.2 mg/dL (1.9-2.7); Potassium 4.5 mmol/L (3.5-5.0); eGFR CKD-EPI 5.9 (>60)
[2024-07-15 10:23] LABS: High Sensitivity Troponin 1 Hr 683 pg/mL (<15)
[2024-07-15] MEDS: Aspirin EC 81 mg TAB.EC (enteric coated) PO SCH (10:30)
[2024-07-15] MEDS ORDERED: NS 0.9% 1000 ml BAG 100 ML IV PRN (13:10)
[2024-07-15] MEDS ORDERED: NS 0.9% 1000 ml BAG 200 ML IV PRN (13:10)
[2024-07-15 14:39] LABS: Hepatitis B Surface Antigen Nonreactive (Nonreactive)
[2024-07-15 14:57] LABS: Hepatitis B Surface Ab Not Immune (Immune)
[2024-07-15] MEDS ORDERED: Heparin 2 UNITS/ML 1000 mls IV ONE (15:31)
[2024-07-15] MEDS ORDERED: niCARdipine 0.1MG/ML IVPREMIX 0 MG/0 ML BAG IV ONE (16:47)
[2024-07-15] MEDS ORDERED: Lidocaine 1% MPF 5 ML VIAL ONE (16:47)
[2024-07-15] MEDS ORDERED: Iohexol 350 (CONTRAST) 100 ML PAK IV ONE (16:48)
[2024-07-15] MEDS ORDERED: Heparin 2 UNITS/ML IVPREMIX 0 UNIT/0 ML BAG IV ONE (16:48)
[2024-07-15] MEDS ORDERED: Heparin 2 UNITS/ML 1000 mls 0 ML IV ONE (16:48)
[2024-07-15] MEDS ORDERED: nitroGLYCERIN DRIP 0 MCG/0 ML BTL ONE (16:48)
[2024-07-15] MEDS ORDERED: fentaNYL 100 mcg/2 ml 50 MCG/ML VIAL ONE (16:52)
[2024-07-15] MEDS ORDERED: Midazolam 5 mg/5 ml VIAL 1 mg/ml 5 ml VIAL (5 mg) ONE (16:52)
[2024-07-15] MEDS ORDERED: Heparin 1,000 UNIT/ML 10 ml (10,000 UNITS) CATHLAB/DIALYSIS ONE (16:53)
[2024-07-15 18:25] LABS: POC SO2 96 %
[2024-07-16 05:59] LABS: ABS Basophils 0.1 10^3/uL (0.0-0.1); ABS Eosinophils 0.1 10^3/uL (0.0-0.5); ABS Lymphocytes 1.2 10^3/uL (1.0-4.8); ABS Monocytes 0.9 10^3/uL (0.0-0.9); ABS Nucleated RBC 0.02 10^3/ul; Eosinophil % 1.2 %; Hematocrit 34.8 % (35-45); Hemoglobin 11.3 g/dL (11.5-14.3); Lymphocyte % 16.3 %; Mean Corpuscular Hgb Conc 32.3 g/dL (31-36); Mean Corpuscular Volume 92.8 fL (80-97); Nucleated Red Blood Cells % 0.3 %/100WBC (0.0-0.8); Platelet Count 110 10^3/uL (150-450); Red Blood Count 3.75 10^6/uL (3.63-4.92); Red Cell Distribution Width 19.9 % (12-17); White Blood Count 7.2 10^3/uL (3.8-11.8)
[2024-07-16 06:06] LABS: Creatinine, Serum 9.39 mg/dL (0.51-0.95); Magnesium 2.1 mg/dL (1.9-2.7); eGFR CKD-EPI 4.3 (>60)
[2024-07-16 07:12] LABS: POC SO2 69 %
[2024-07-16] MEDS ORDERED: fentaNYL 100 mcg/2 ml 50 MCG/ML VIAL ONE (08:59)
[2024-07-16] MEDS ORDERED: Naloxone 0.4 mg VIAL 0.4 mg/ml 1 ml VIAL ONE (08:59)
[2024-07-16] MEDS ORDERED: Flumazenil 0.5 mg/5 ml 0.1 MG/ML 5 ml VIAL ONE (08:59)
[2024-07-16] MEDS ORDERED: Midazolam 5 mg/5 ml VIAL 1 mg/ml 5 ml VIAL (5 mg) ONE (09:00)
[2024-07-16] MEDS ORDERED: Naloxone 0.4 mg VIAL 0.4 mg/ml 1 ml VIAL IV PUSH PRN (09:26)
[2024-07-16] MEDS ORDERED: Flumazenil 0.5 mg/5 ml 0.1 MG/ML 5 ml VIAL IV PRN (09:26)
[2024-07-16] MEDS: Midazolam 10 mg/10 ml VIAL 1 mg/ml 10 ml VIAL (10 mg) IV SLOW PU ONE (10:33)
[2024-07-16] MEDS: fentaNYL 100 mcg/2 ml 50 MCG/ML VIAL IV SLOW PU ONE (10:33)
[2024-07-16] MEDS: Heparin 1,000 UNIT/ML 10 ml (10,000 UNITS) CATHLAB/DIALYSIS DIALYSIS PRN (12:58)
[2024-07-16] MEDS: Albumin Human 25% 25 GM/100 ML BTL IV PRN (13:06)
[2024-07-16 18:07] VITALS: BP 136/62
== END 2024-07-16 17:40 | disposition home or self-care (01) | DRG 286 ==
LOC: ED 09:51 → EDHOLD 09:51 → SUATTDRO 15:21 → OBSVTOIN 15:21 → MEDTELE 16:46
PROVIDERS: ADMIT Student in an Organized Health Care Education/Training Program; ATTEND Student in an Organized Health Care Education/Training Program